=== PATIENT | female | born 1960 | race Caucasian/White ===

== ENCOUNTER 2018-12-17 08:45 | Inpatient (IN) ==
--- OUTSIDE RECORDS SUMMARY | 2018-12-17 08:48 | External Medical Summary | Continuity of Care Document ---
:1960 Author Name Alan Springer, Provider Address Unavailable Unavailable , Care Team Providers Name Role Phone Colin Tate DO Unavailable [email or web address] Unavailable Unavailable Unavailable Unavailable Unavailable Problems Glaucoma (365.9) (H40.9) Loss of teeth, acquired (525.10) (K08.109) Allergic rhinitis (477.9) (J30.9) Asthma (493.90) (J45.909) Anemia (285.9) (D64.9) Headache (784.0) (R51) Panic disorder (300.01) (F41.0) PAD (peripheral artery disease) (443.9) (I73.9) Generalized anxiety disorder (300.02) (F41.1) Tobacco use disorder (305.1) (F17.200) Venous insufficiency (459.81) (I87.2) Allergies and Adverse Reactions No Known Drug Allergies (Allergy) Medications CeleXA 40 MG Oral Tablet; TAKE 1 TABLET DAILY. Quantity: 90 Refills: 1 ALPRAZolam 1 MG Oral Tablet; USE DIRECTED Refills: 0 Loratadine 10 MG Oral Tablet; TAKE 1 TABLET DAILY. Quantity: 90 Refills: 3 Lumigan 0.01 % Ophthalmic Solution; USE DIRECTED. Refills: 0 Albuterol Sulfate HFA 108 MCG/ACT AERS; USE DIRECTED. Refills: 0 Aspirin 81 MG TABS; TAKE 1 TABLET DAILY. Quantity: 90 Refills: 3 traMADol HCl - 50 MG Oral Tablet; USE DIRECTED. Refills: 0 Procedures History of Hysterectomy Status: Complete d History of Tonsillectomy With Adenoidectomy Status: Completed History of Complete Colonoscopy Status: Completed Immunizations Immunizations not documented Social History - Smoking Status Smoker. current status unknown Plan of Treatment Planned Observations Planned Goals not documented Results No Known Results Results not documented Encounters Appointment; Colin Tate DO 25-May-2015 10:00 Encounter Diagnosis: Problem not documented
[2018-12-17] MEDS ORDERED: ALBUT/IPRATROP 3MG/0.5MG NEB 3 ML VIAL NEB STA ×2 (09:36→10:43)
[2018-12-17 09:39] LABS: Appearance Urine Clear (Clear); Bilirubin Urine Negative (Negative); Blood Urine Negative (Negative); Color Urine Yellow; Glucose Urine UA Negative (Negative); Ketones Urine Negative (Negative); Leukocyte Esterase Urine Negative (Negative); Nitrite Urine Negative (Negative); Protein Urine Negative (Negative); Specific Gravity Urine 1.011 (1.000-1.030); Urobilinogen Urine Negative (Negative)
[2018-12-17 10:04] LABS: Basophils # (auto) 0.03 K/uL (0-0.2); Basophils % (auto) 0.7 %; Eosinophils # (auto) 0.13 K/uL (0-0.5); Eosinophils % (auto) 3.1 %; Hematocrit (blood only) 33.8 % (37-47); Hemoglobin 11.1 g/dL (12.0-16.0); Immature Granulocytes # (auto) 0.01 K/uL (0.00-0.02); Immature Granulocytes % (auto) 0.2 %; Lymphocytes # (auto) 1.18 K/uL (1.2-3.4); Lymphocytes % (auto) 28.3 %; Mean Corpuscular Hgb Conc 32.8 g/dL (32-36); Mean Platelet Volume 9.6 fL (7.4-10.4); Monocytes # (auto) 0.43 K/uL (0.11-0.59); Monocytes % (auto) 10.3 %; Neutrophils # (auto) 2.39 K/uL (1.4-6.5); Neutrophils % (auto) 57.4 %; Platelet Count 180 K/uL (130-400); RDW Standard Deviation 53.5 fL (36.4-46.3); Red Blood Count 3.22 M/uL (4.2-5.4); White Blood Count 4.17 K/uL (4.8-10.8)
--- NOTE | 2018-12-17 10:06 | XRay Report ---
XR chest 1V portable CLINICAL HISTORY: 58 years-old Female presenting with dyspnea. TECHNIQUE: Portable upright AP view of the chest was obtained. COMPARISON: 05/17/2015. FINDINGS: Atherosclerosis of the aortic arch. Cardiac silhouette enlarged. No focal opacity. No large effusion or pneumothorax. Degenerative changes of the thoracic spine. Upper abdomen normal. IMPRESSION: 1. Cardiomegaly. No other convincing evidence of acute cardiopulmonary disease. Electronically signed by: Antelmo Pisano M.D. 12/17/2018 10:05 AM
[2018-12-17 10:16] LABS: INR 0.9 (0.9-1.1); Partial Thromboplastin Ratio 0.8; Partial Thromboplastin Time 22.1 Seconds (21.0-31.0); Prothrombin Time 9.7 Seconds (9.0-12.0)
[2018-12-17 10:19] LABS: Alanine Aminotransferase 25 U/L (12-78); Albumin Level 3.8 gm/dl (3.4-5.0); Aspartate Aminotransferase 12 U/L (15-37); BUN Creatinine Ratio 16.7 (10-20); Blood Urea Nitrogen 11 mg/dl (7-18); Calcium 8.9 mg/dl (8.5-10.1); Carbon Dioxide 33 mmol/L (21-32); Chloride 105 mmol/L (98-107); Creatinine Clr Calc Pharmacy 84.7 ml/min; Est GFR (African American) 111.3; Glucose 86 mg/dl (70-99); Potassium 4.5 mmol/L (3.5-5.1); Sodium 142 mmol/L (136-145)
[2018-12-17 10:36] LABS: Albumin Globulin Ratio 1.1 (0.9-2); Alkaline Phosphatase 64 U/L (45-117); Bilirubin,Total 0.3 mg/dl (0.2-1); Globulin 3.4 gm/dl (2.5-4.0); NT Pro B Type Natriuretic Pept 122 pg/ml (0-900); Total Protein 7.2 gm/dl (6.4-8.2); Troponin I < 0.015 ng/ml (0-0.045)
[2018-12-17] MEDS ORDERED: OPTIRAY 320 125ml IV PRN (11:17)
--- NOTE | 2018-12-17 11:40 | CT Scan Report ---
CT SCAN OF THE ABDOMEN AND PELVIS WITH IV CONTRAST CLINICAL HISTORY: Abdominal distention. Lower extremity edema. COMPARISON STUDY: Abdominal CT dated 08/02/2012. TECHNIQUE: Following the IV administration of 120 cc of Optiray 320, CT scan of the abdomen and pelv is is performed from the lung bases to the proximal femora. Images are reviewed in the axial, sagitta l, and coronal planes. IV contrast was administered without complication. A dose lowering technique w as utilized adhering to the principles of ALARA. FINDINGS: Lung bases: The heart is normal in size and without pericardial effusion. There is bibasilar scarring /atelectasis. No airspace consolidation or pleural effusion is identified. There is a small hiatal he rnia. Liver: The contrast-enhanced liver is enlarged, measuring 18.6 cm in length. The liver demonstrates d iffusely diminished attenuation consistent with hepatic steatosis. There is no intrahepatic biliary d uctal dilatation. The hepatic veins and portal veins are patent. Gallbladder: Unremarkable. Spleen: Normal in size and attenuation. Pancreas: Unremarkable. Adrenal glands: Unremarkable. Kidneys: The contrast enhanced kidneys are normal in size and without hydronephrosis. The kidneys enh ance symmetrically. A subcentimeter cortical hypodensity in the left kidney likely represents a cyst but is too small for definitive characterization. A circumaortic left renal vein is incidentally note d. Abdominal vasculature: The abdominal aorta is normal in course and caliber noting moderate atheroscle rotic calcification. Bowel: There is moderate colonic fecal retention. No bowel obstruction is seen. A duodenal diverticul um is noted. The appendix is not identified. Peritoneum: There is no intraperitoneal free air or abdominal ascites. Lymphadenopathy: None. Pelvic viscera: The bladder is normal in appearance. The uterus is surgically absent. No adnexal lesi on is seen. Skeletal structures: The skeletal structures are osteopenic. There is mild lumbosacral spondylosis. N o lytic or blastic lesions are seen. IMPRESSION: 1. There are no acute infectious or inflammatory findings in the abdomen or pelvis. 2. Hepatomegaly and hepatic steatosis. 3. Moderate constipation. Electronically signed by: Ankur Mercado M.D. 12/17/2018 11:39 AM
--- NOTE | 2018-12-17 11:42 | CT Scan Report ---
CT ANGIOGRAPHY OF THE CHEST, PULMONARY EMBOLUS PROTOCOL CLINICAL HISTORY: Dyspnea. COMPARISON STUDY: Chest CT August 02, 2012. Chest radiograph December 17, 2018. TECHNIQUE: Following IV administration of Optiray-320, helical axial images of the chest were obtaine d utilizing the pulmonary embolus protocol. Maximal intensity projections and sagittal and coronal r eformats were viewed on an independent 3D workstation. IV contrast was administered without complica tion. Automated exposure control was utilized for the study. A dose lowering technique was utilized adhering to the principles of ALARA. CT DOSE: 815.25 mGy.cm FINDINGS: No pulmonary emboli are identified although the segmental and subsegmental pulmonary arter ies within the lower lobes are suboptimally assessed due to respiratory motion. Mild to moderate card iomegaly is noted. There is no evidence for thoracic aortic dissection. No enlarged thoracic lymph no rhona are present. Central airways are patent. Lungs are suboptimally assessed due to respiratory motio n. There is no consolidation to suggest pneumonia. A 4 mm left upper lobe nodule on image 190 of [address] of August 02, 2012. This is benign. There is no pneumothorax or pleural effusion . IMPRESSION: 1. No pulmonary emboli identified although segmental and subsegmental pulmonary arteries within the l ower lobes suboptimally assessed due to respiratory motion. 2. No acute intrathoracic findings. 3. Mild to moderate cardiomegaly. Electronically signed by: Moy Márquez M.D. 12/17/2018 11:41 AM
--- NOTE | 2018-12-17 13:06 | History & Physical Report ---
Date of Service December 17, 2018 Assessment & Plan (1) Shortness of breath: Pt is 58 y/o F with PMH asthma, depression, anxiety, bipolar, GERD, h/o NSTEMI 2016 presented with c/o of increased shortness of breath and increased edema x 4-5 days. States has noticed increased bilateral lower extremity edema and her abdomen seems to be more distended and her face looks puffy. Patient complains of wheezing and nonproductive cough x 3 days. In ER afebrile, vitals stable. WBC: 4.17, H/H: , negative troponin, BNP: 122 CTA CHEST: No pulmonary emboli identified although segmental and subsegmental pulmonary arteries within the lower lobes suboptimally assessed due to respiratory motion. No acute intrathoracic findings. Mild to moderate cardiomegaly. CT ABD/PELVIS: There are no acute infectious or inflammatory findings in the abdomen or pelvis. Hepatomegaly and hepatic steatosis. Moderate constipation. DDX: CHF vs asthma exacerbation -Low sodium diet -Monitor I&O's -Hold home oral lasix -Lasix 40mg IV now, followed by lasix 20mg IV tomorrow, reassess volume status -Duonebs -Echo -Monitor CBC, BMP (2) Asthma: Pt reports hx asthma. Unsure if hx COPD and unsure if had PFTs in past. She has combivent inhaler which she uses 4 times a day and past couple of days required increased use. CXR: no acute infiltrate -Duonebs currently -Recommend PFTs out patient to further assess if COPD or asthma or dual diagnosis (3) History of non-ST elevation myocardial infarction (NSTEMI): Hx NSTEMI 2016. Hx cardiac cath 2016 with 30% lesion to LAD No Current CP. Initial troponin negative. EKG without acute ST elevation -Repeat troponin (4) GERD (gastroesophageal reflux disease): -Continue PPI (5) Chronic anemia: H/H: . Baseline Hgb: 11-12 No symptoms or signs of bleeding -Continue ferrous sulfate -Monitor H&H (6) Bipolar disorder: (7) Anxiety with depression: -Continue wellbutrin, celexa, xanax, lamictal, risperidone -Continue follow up with outpatient psychiatrist (8) Alcohol use: Drinks 12 beers three times a week. Denies hx alcohol withdrawal -Alcohol cessation encouraged DVT Prophylaxis -SCDs Follows with Dr Frances for routine care Pt was seen and care coordinated with Dr Montes. See addendum History of Present Illness Chief Complaint: SOB, edema Primary Care Provider: Tereso Frances DO Pt is 58 y/o F with PMH asthma, depression, anxiety, bipolar, GERD, h/o NSTEMI 2016 presented to ER with complaint of increased shortness of breath and increased edema x 4-5 days. States has noticed increased bilateral lower extremity edema and her abdomen seems to be more distended and her face looks puffy. Patient complains of wheezing and nonproductive cough x 3 days. She reports has Combivent inhaler which she typically uses 4 times a day however over the past several days has been needing to take more and reports his been taking with minimal relief. Patient states 3 days ago had anterior chest pain in the morning which was associated with wheezing and shortness of breath. She states she took her Combivent which did not help and then later laid down and felt better after. Denies any recurrent chest pain. Denies any associated dizziness, palpitations, diaphoresis. Patient reports being on Lasix 20 mg daily for history of extremity edema and is unsure how long she has been on. States has been taking regularly. Denies any known history of CHF. Patient reports chronically sleeps with 3 pillows. States sometimes she wakes up at night feeling short of breath and having wheezing. Patient states 2 weeks ago she tripped on steps and fell forward landing on her face. Reports was seen at a urgent care center and had a reported negative nasal x-ray. Patient states since fall has had intermittent headache to top of head. Reports last BM 2 days ago which she reports was normal. Denies any abdominal pain. Denies any dysuria, hematuria, urinary frequency, urinary retention, fever/chills, diaphoresis, N/V/D, dizziness, syncope, vision changes, neck pain, palpitations, hemoptysis, sore throat, choking, otalgia, rhinorrhea, paresthesias, weakness, extremity weakness, rashes. History echo 05/07/2015: EF 45-50%, inferior, lateral wall motion abnormality with hypokinesis, trace mitral regurgitation, trace tricuspid regurgitation History echo: 05/17/2015: EF: 65-70%, normal LV wall motion History cath 04/2015: LAD: Ostial 30% occlusion, other vessels clear Allergies Allergy/AdvReac Type Severity Reaction Status Date / Time No Known Allergies Allergy Unverified 05/07/15 09:16 Home Medications Home Medications Medication Instructions Recorded Confirmed Type alprazolam 1 mg PO BID 12/17/18 12/17/18 History aspirin 81 mg PO QAM 12/17/18 12/17/18 History bisacodyl [Dulcolax (bisacodyl)] 10 mg PO HS 12/17/18 12/17/18 History bupropion HCl 100 mg PO BID 12/17/18 12/17/18 History citalopram 40 mg PO QAM 12/17/18 12/17/18 History cyanocobalamin (vitamin B-12) 1,000 mcg PO QAM 12/17/18 12/17/18 History [Vitamin B-12] ferrous sulfate [Slow Fe] 142 mg PO QAM 12/17/18 12/17/18 History furosemide 20 mg PO QAM 12/17/18 12/17/18 History ibuprofen 200 mg PO Q6H PRN 12/17/18 12/17/18 History ipratropium-albuterol [Combivent 1 puff INHALATION Q6H 12/17/18 12/17/18 History Respimat] lamotrigine 50 mg PO BID 12/17/18 12/17/18 History lamotrigine 100 mg PO HS 12/17/18 12/17/18 History multivitamin 1 tab PO QAM 12/17/18 12/17/18 History omeprazole 20 mg PO QAM 12/17/18 12/17/18 History risperidone 0.25 mg PO BID 12/17/18 12/17/18 History Past Med/Surg History Medical History Chronic anemia (Chronic) History of non-ST elevation myocardial infarction (NSTEMI) (Chronic) 2016 GERD (gastroesophageal reflux disease) (Chronic) Bipolar disorder (Chronic) Anxiety with depression (Chronic) Sepsis (Resolved) Anxiety (Chronic) Asthma (Chronic) Tobacco use (Resolved) Quit 2016 Surgical History History of cardiac cath (Chronic) 2016: 30% occlusion LAD Status post hysterectomy (Chronic) Status post tonsillectomy (Chronic) Social History Preferred Language: Indonesian Communication Ability: Effective [employer]ation Architect Required: No Beliefs That Will Affect Care: None Current Living Situation: Alone Other Information That Helps Us Care for You: No Feels Safe at Home: Yes Safety Concerns: Feels Safe At This Time Smoking Status: Former smoker Tobacco Type: cigarettes ; Do You Dip or Chew Tobacco: No ; Smoking End Date: 2015; smoked 2ppd x 30 years ; Second Hand Exposure: No ; Tobacco Cessation Education Requested by Patient: No Hx Alcohol Use: Yes Alcohol Intake Frequency Comment: 12 beers three times a week Hx Substance Use: No Review of Systems Review of Systems: All systems reviewed & are unremarkable except as noted in HPI & below Physical Exam Physical Exam: General: no distress, WDWN Head: normocephalic, atraumatic Eyes: PERRL, EOM's intact, conjunctiva non-injected, anicteric ENT: normal inspection external ears, nose, mucous membranes moist Neck: supple, trachea midline Lungs: no respiratory distress, +faint expiratory wheezing, +faint rales at RLL CV: RRR, no murmur, no JVD, 1+pretibial edema Abd: normal BS, soft, non-tender Ext: no cyanosis, no calf tenderness Neuro: A&O x 3, no focal deficits noted, normal affect Skin: warm, dry Results & Data Vital Signs (Past 12 Hours) Vital Signs Temp Pulse Pulse Resp BP BP Pulse Ox 12/17/18 11:31 64 63 17 148/74 H 100 12/17/18 11:00 62 17 137/71 96 12/17/18 10:51 65 67 19 137/79 96 12/17/18 09:52 64 18 98 12/17/18 09:25 64 18 125/62 97 12/17/18 08:52 36.4 C L 76 22 137/78 96 Laboratory Results Short CBC 12/17/18 Range/Units 09:36 WBC 4.17 L (4.8-10.8) K/uL Hgb 11.1 L (12.0-16.0) g/dL Hct 33.8 L (37-47) % Plt Count 180 (130-400) K/uL BMP 12/17/18 09:36 Sodium 142 Potassium 4.5 Chloride 105 Carbon Dioxide 33 H BUN 11 Creatinine 0.66 Glucose 86 Calcium 8.9 Cardiac Enzymes 12/17/18 Range/Units 09:36 Troponin I < 0.015 (0-0.045) ng/ml Liver Function 12/17/18 Range/Units 09:36 Total Bilirubin 0.3 (0.2-1) mg/dl AST 12 L (15-37) U/L ALT 25 (12-78) U/L Alkaline Phosphatase 64 (45-117) U/L Albumin 3.8 (3.4-5.0) gm/dl Urine 12/17/18 Range/Units 09:30 Urine Color Yellow Urine Appearance Clear (Clear) Urine pH 7.0 (4.5-7.5) Ur Specific [place] 1.011 (1.000-1.030) Urine Protein Negative (Negative) Urine Glucose (UA) Negative (Negative) Diagnostic Findings CXR: IMPRESSION: 1. Cardiomegaly. No other convincing evidence of acute cardiopulmonary disease. CTA CHEST: IMPRESSION: 1. No pulmonary emboli identified although segmental and subsegmental pulmonary arteries within the lower lobes suboptimally assessed due to respiratory motion. 2. No acute intrathoracic findings. 3 Mild to moderate cardiomegaly. CT ABD/PELVIS: IMPRESSION: 1. There are no acute infectious or inflammatory findings in the abdomen or pelvis. 2. Hepatomegaly and hepatic steatosis. 3. Moderate constipation. ECG Rate (beats per minute): 66 Rhythm: sinus rhythm Findings: + 1st degree AV block Supervising Physician Co-Signing Physician Notes Patient seen and examined with Carole ASKEW. 58year old woman with Asthma, depression, anxiety, bipolar, NSTEMI in 2016, significant smoking history (quit 2 years ago) who presented with Shortness of breath and increased leg swelling for the past 5 days, associated with wheezing, dry cough, PND, facial puffiness, abdominal distention and occasional chest pain during episodes of wheezing. Reported chronic 3 pillow orthopnea that has not changed. Also reports headache since after a recent mechanical fall with evaluation at an urgent care center. Last bowel movement was 2 days ago. Denied any fevers, sick contacts. Other history as above Physical exam was significant for bilateral pretibial edema (1+), mild expiratory wheeze (Upper Right lung zone posteriorly) and fine right basilar crackles. Other exam findings as noted above. BNP 122, trop <0.015, Hb 11.1 with MCV 105. CTA/P showed hepatomegaly with hepatic steatosis and moderate constipation. CT chest showed cardiomegaly but no PE Patient's history and exam is suggestive of congestive heart failure. She stated she does not have any previous diagnosis of heart failure but has been on furosemide since after the NSTEMI two years ago. Review of previous Echo 04/2015 showed EF of 45-50% and Echo in 05/2015 showed EF improved to 65-70. Cardiac cath in 2016 also showed 30% ostial lesion in LAD. BNP is normal but patient is obese. Will get 2D Echo. Hold po furosemide. Start iv. Monitor intake and output. Counselled patient on need for fluid and salt restriction which she has not been doing. Educated on heart healthy diet. Counselled patient about her alcohol abuse as she drinks 3 times a week (about 12 beers each time) For asthma; Continue duonebs for now and monitor For constipation: Add senna to bowel regimen Agree with other plans as above
[2018-12-17] MEDS ORDERED: FUROSEMIDE 40 MG/4 ML VIAL IV STA (14:51)
--- NOTE | 2018-12-17 15:20 | Emergency Department Note ---
History of Present Illness General Chief complaint: Shortness of Breath/Dyspnea Stated complaint: SOB,SWELLING IN ANKLES,EYES AND ABD Time Seen by Provider: 12/17/18 08:55 History of Present Illness This is a 58-year-old female that presents to the emergency department via private vehicle accompanied by daughter with complaints of "shortness of breath, swelling in ankles, eyes and abdomen". Patient notes that 5 days ago she began with shortness of breath that was worse with lying flat. She also notes some fullness and swelling in the face, legs and abdomen. She also notes that she fell about a week ago but has been doing well. She notes some chest pain with heavy breathing but none at rest. She also feels some palpitations. She has a history of pneumonia but she notes she does not feel as bad as when she previously had pneumonia. She also had a sore throat, a cough and notes that her inhaler is not helping. She also notes some pain in her legs and her abdomen. She feels as of the abdomen is swelling she notes that she is on Lasix 20 mg daily. She has a history of OR in 2015 as well. She was a former smoker but none currently. She notes that after her OR she stopped smoking. She notes a past medical history significant for that of sister with CHF. Home Medications Home Medications Medication Instructions Recorded Confirmed Type alprazolam 1 mg PO BID 12/17/18 12/17/18 History aspirin 81 mg PO QAM 12/17/18 12/17/18 History bisacodyl [Dulcolax (bisacodyl)] 10 mg PO HS 12/17/18 12/17/18 History bupropion HCl 100 mg PO BID 12/17/18 12/17/18 History citalopram 40 mg PO QAM 12/17/18 12/17/18 History cyanocobalamin (vitamin B-12) 1,000 mcg PO QAM 12/17/18 12/17/18 History [Vitamin B-12] ferrous sulfate [Slow Fe] 142 mg PO QAM 12/17/18 12/17/18 History furosemide 20 mg PO QAM 12/17/18 12/17/18 History ibuprofen 200 mg PO Q6H PRN 12/17/18 12/17/18 History ipratropium-albuterol [Combivent 1 puff INHALATION Q6H 12/17/18 12/17/18 History Respimat] lamotrigine 50 mg PO BID 12/17/18 12/17/18 History lamotrigine 100 mg PO HS 12/17/18 12/17/18 History multivitamin 1 tab PO QAM 12/17/18 12/17/18 History omeprazole 20 mg PO QAM 12/17/18 12/17/18 History risperidone 0.25 mg PO BID 12/17/18 12/17/18 History Allergies Allergy/AdvReac Type Severity Reaction Status Date / Time No Known Allergies Allergy Unverified 05/07/15 09:16 Past Med/Surg History Medical History Chronic anemia (Chronic) History of non-ST elevation myocardial infarction (NSTEMI) (Chronic) 2016 GERD (gastroesophageal reflux disease) (Chronic) Bipolar disorder (Chronic) Anxiety with depression (Chronic) Sepsis (Resolved) Anxiety (Chronic) Asthma (Chronic) Tobacco use (Resolved) Quit 2016 Surgical History History of cardiac cath (Chronic) 2016: 30% occlusion LAD Status post hysterectomy (Chronic) Status post tonsillectomy (Chronic) Social History Preferred Language: Korean Communication Ability: Effective Predatory Animal Exterminator Required: No Beliefs That Will Affect Care: None Current Living Situation: Alone Other Information That Helps Us Care for You: No Feels Safe at Home: Yes Safety Concerns: Feels Safe At This Time Smoking Status: Former smoker Tobacco Type: cigarettes ; Do You Dip or Chew Tobacco: No ; Smoking End Date: 2015; smoked 2ppd x 30 years ; Second Hand Exposure: No ; Tobacco Cessation Education Requested by Patient: No Hx Alcohol Use: Yes Alcohol Intake Frequency Comment: 12 beers three times a week Hx Substance Use: No Review of Systems A total of 10 systems reviewed and were otherwise negative Physical Exam Vital Signs Vital Signs - 24 hr 12/17/18 08:52 12/17/18 09:25 12/17/18 09:52 Temperature 36.4 C L Temperature Source Oral Sepsis Recent Fever Within 48 Hours No Sepsis Action Taken by Nursing No Action Required Pulse Rate 76 Pulse Rate [Finger] 64 64 Pulse Rate from SpO2 Sensor Respiratory Rate 22 18 18 Respiratory Effort / Characteristics Non-Labored Spontaneous Non-Labored Non-Labored Spontaneous Respiratory Depth Normal Normal Blood Pressure 137/78 Blood Pressure [Left Arm] 125/62 Blood Pressure Mean 97 Blood Pressure Mean [Left Arm] 83 Blood Pressure Position Sitting Pulse Oximetry 96 97 98 Oxygen Delivery Method Room Air Room Air Room Air 12/17/18 10:51 12/17/18 11:00 12/17/18 11:31 Temperature Temperature Source Sepsis Recent Fever Within 48 Hours Sepsis Action Taken by Nursing Pulse Rate 65 62 64 Pulse Rate [Finger] 67 63 Pulse Rate from SpO2 Sensor 64 61 63 Respiratory Rate 19 17 17 Respiratory Effort / Characteristics Non-Labored Spontaneous Respiratory Depth Blood Pressure 137/71 148/74 H Blood Pressure [Left Arm] 137/79 Blood Pressure Mean 93 98 Blood Pressure Mean [Left Arm] 98 Blood Pressure Position Pulse Oximetry 96 96 100 Oxygen Delivery Method Room Air 12/17/18 12:00 12/17/18 12:30 12/17/18 13:00 Temperature Temperature Source Sepsis Recent Fever Within 48 Hours Sepsis Action Taken by Nursing Pulse Rate 67 70 69 Pulse Rate [Finger] Pulse Rate from SpO2 Sensor 68 71 69 Respiratory Rate 21 18 21 Respiratory Effort / Characteristics Respiratory Depth Blood Pressure 148/70 H Blood Pressure [Left Arm] Blood Pressure Mean 96 Blood Pressure Mean [Left Arm] Blood Pressure Position Pulse Oximetry 97 97 Oxygen Delivery Method VITAL SIGNS - Vital signs and nursing notes were reviewed. Stable and afebrile. GENERAL - 58-year-old female appearing her stated age who is in no acute distress but has an intermittent cough. Communicates well with provider and answers questions appropriately. SKIN - Without rashes. HEAD - NC/AT. EYES - PERRL with EOMI bilaterally. Sclera anicteric. EARS - No deformities of external structures noted on gross examination bilaterally. NOSE - Midline and without cyanosis. No epistaxis or purulent drainage noted. MOUTH/OROPHARYNX - Without perioral cyanosis. Buccal mucosa pink and moist and without leukoplakia. Tongue midline with equal elevation of palate bilaterally. No tonsillar hypertrophy, erythema, or exudates noted. Good dentition noted. NECK - Neck with FROM. Supple to palpation. No lymphadenopathy noted. No nuchal rigidity. LUNGS - Chest wall symmetric without accessory muscle use, intercostals retractions, or central cyanosis. Normal vesicular breath sounds CTA B/L. No wheezes, rales, or rhonchi appreciated. CARDIAC - RRR with S1/S2. No murmur, rubs, or gallops appreciated. ABDOMEN - Abdominal contour normal without pulsations or visible masses. Abd is tense but not rigid. No evidence of surgical abdomen. No tenderness, palpable masses, hepatosplenomegaly, or ascites noted. EXTREMITIES - No clubbing or peripheral cyanosis. 1+ lower extreme pitting edema noted. There is evidence of fluid overload with lower extremity edema. This is symmetric. No palpable cord. NEUROLOGIC - Cranial nerves II through XII grossly intact. Sensory intact to light touch throughout. PSYCH - A&O, and cooperates fully with examiner. Pt is very pleasant and interacts well with examiner. Course Administered Medications Bupropion HCl (Wellbutrin-Sr) 100 mg PO [id number] JUAN M Stop: 01/16/19 16:59 Last Admin: 12/17/18 16:05 Dose: 100 mg Documented by: [id number] Discontinued Medications Albuterol (Duoneb) 3 ml NEB NOW STA Stop: 12/17/18 09:37 Last Admin: 12/17/18 09:50 Dose: 3 ml Documented by: [id number] Albuterol (Duoneb) 3 ml NEB NOW STA Stop: 12/17/18 10:44 Last Admin: 12/17/18 11:29 Dose: 3 ml Documented by: [id number] Furosemide (Lasix) 40 mg IV NOW STA Stop: 12/17/18 14:52 Last Admin: 12/17/18 16:04 Dose: 40 mg Documented by: [id number] Ioversol (Optiray 320 125ml) 120 ml IV ONCE PRN PRN Reason: Interaction Checking Stop: 12/21/18 11:16 Last Admin: 12/17/18 11:21 Dose: 120 ml Documented by: [id number] Medical Decision Making Laboratory Data Result diagrams: 12/17/18 09:36 12/17/18 09:36 Lab Results 12/17/18 12/17/18 12/17/18 Range/Units 09:30 09:36 09:36 WBC 4.17 L (4.8-10.8) K/uL RBC 3.22 L (4.2-5.4) M/uL Hgb 11.1 L (12.0-16.0) g/dL Hct 33.8 L (37-47) % MCV 105.0 H (80-100) fL MCH 34.5 H (25-34) pg MCHC 32.8 (32-36) g/dL RDW Std Deviation 53.5 H (36.4-46.3) fL RDW Coeff of Adrián 14.0 (11.5-14.5) % Plt Count 180 (130-400) K/uL MPV 9.6 (7.4-10.4) fL Immature Gran % (Auto) 0.2 % Neut % (Auto) 57.4 % Lymph % (Auto) 28.3 % [place] % (Auto) 10.3 % Eos % (Auto) 3.1 % Baso % (Auto) 0.7 % Immature Gran # (Auto) 0.01 (0.00-0.02) K/uL Neut # (Auto) 2.39 (1.4-6.5) K/uL Lymph # (Auto) 1.18 L (1.2-3.4) K/uL [place] # (Auto) 0.43 (0.11-0.59) K/uL Eos # (Auto) 0.13 (0-0.5) K/uL Baso # (Auto) 0.03 (0-0.2) K/uL PT 9.7 (9.0-12.0) Seconds INR 0.9 (0.9-1.1) APTT 22.1 (21.0-31.0) Seconds PTT Ratio 0.8 Sodium (136-145) mmol/L Potassium (3.5-5.1) mmol/L Chloride (98-107) mmol/L Carbon Dioxide (21-32) mmol/L Anion Gap (3-11) BUN (7-18) mg/dl Creatinine (0.6-1.2) mg/dl Est Cr Clr Drug Dosing ml/min Est GFR ( Amer) Est GFR (Non-Af Amer) BUN/Creatinine Ratio (10-20) Glucose (70-99) mg/dl Calcium (8.5-10.1) mg/dl Magnesium (1.8-2.4) mg/dl Total Bilirubin (0.2-1) mg/dl AST (15-37) U/L ALT (12-78) U/L Alkaline Phosphatase (45-117) U/L Troponin I (0-0.045) ng/ml NT-Pro-B Natriuret Pep (0-900) pg/ml Total Protein (6.4-8.2) gm/dl Albumin (3.4-5.0) gm/dl Globulin (2.5-4.0) gm/dl Albumin/Globulin Ratio (0.9-2) Lipase (73-393) U/L TSH (0.300-4.500) uIu/ml Urine Color Yellow Urine Appearance Clear (Clear) Urine pH 7.0 (4.5-7.5) Ur Specific Effie 1.011 (1.000-1.030) Urine Protein Negative (Negative) Urine Glucose (UA) Negative (Negative) Urine Ketones Negative (Negative) Urine Blood Negative (Negative) Urine Nitrite Negative (Negative) Urine Bilirubin Negative (Negative) Urine Urobilinogen Negative (Negative) Ur Leukocyte Esterase Negative (Negative) 12/17/18 Range/Units 09:36 WBC (4.8-10.8) K/uL RBC (4.2-5.4) M/uL Hgb (12.0-16.0) g/dL Hct (37-47) % MCV (80-100) fL MCH (25-34) pg MCHC (32-36) g/dL RDW Std Deviation (36.4-46.3) fL RDW Coeff of Adrián (11.5-14.5) % Plt Count (130-400) K/uL MPV (7.4-10.4) fL Immature Gran % (Auto) % Neut % (Auto) % Lymph % (Auto) % [place] % (Auto) % Eos % (Auto) % Baso % (Auto) % Immature Gran # (Auto) (0.00-0.02) K/uL Neut # (Auto) (1.4-6.5) K/uL Lymph # (Auto) (1.2-3.4) K/uL [place] # (Auto) (0.11-0.59) K/uL Eos # (Auto) (0-0.5) K/uL Baso # (Auto) (0-0.2) K/uL PT (9.0-12.0) Seconds INR (0.9-1.1) APTT (21.0-31.0) Seconds PTT Ratio Sodium 142 (136-145) mmol/L Potassium 4.5 (3.5-5.1) mmol/L Chloride 105 (98-107) mmol/L Carbon Dioxide 33 H (21-32) mmol/L Anion Gap 4.0 (3-11) BUN 11 (7-18) mg/dl Creatinine 0.66 (0.6-1.2) mg/dl Est Cr Clr Drug Dosing 84.7 ml/min Est GFR ( Amer) 111.3 Est GFR (Non-Af Amer) 96.0 BUN/Creatinine Ratio 16.7 (10-20) Glucose 86 (70-99) mg/dl Calcium 8.9 (8.5-10.1) mg/dl Magnesium 2.0 (1.8-2.4) mg/dl Total Bilirubin 0.3 (0.2-1) mg/dl AST 12 L (15-37) U/L ALT 25 (12-78) U/L Alkaline Phosphatase 64 (45-117) U/L Troponin I < 0.015 (0-0.045) ng/ml NT-Pro-B Natriuret Pep 122 (0-900) pg/ml Total Protein 7.2 (6.4-8.2) gm/dl Albumin 3.8 (3.4-5.0) gm/dl Globulin 3.4 (2.5-4.0) gm/dl Albumin/Globulin Ratio 1.1 (0.9-2) Lipase 122 (73-393) U/L TSH 1.370 (0.300-4.500) uIu/ml Urine Color Urine Appearance (Clear) Urine pH (4.5-7.5) Ur Specific [place] (1.000-1.030) Urine Protein (Negative) Urine Glucose (UA) (Negative) Urine Ketones (Negative) Urine Blood (Negative) Urine Nitrite (Negative) Urine Bilirubin (Negative) Urine Urobilinogen (Negative) Ur Leukocyte Esterase (Negative) Imaging Data Radiologist's Impression: CT ANGIOGRAPHY OF THE CHEST, PULMONARY EMBOLUS PROTOCOL CLINICAL HISTORY: Dyspnea. COMPARISON STUDY: Chest CT August 02, 2012. Chest radiograph December 17, 2018. TECHNIQUE: Following IV administration of Optiray-320, helical axial images of the chest were obtained utilizing the pulmonary embolus protocol. Maximal intensity projections and sagittal and coronal reformats were viewed on an [facility] 3D workstation. IV contrast was administered without complication. Automated exposure control was utilized for the study. A dose lowering technique was utilized adhering to the principles of ALARA. CT DOSE: 815.25 mGy.cm FINDINGS: No pulmonary emboli are identified although the segmental and subsegmental pulmonary arteries within the lower lobes are suboptimally assessed due to respiratory motion. Mild to moderate cardiomegaly is noted. There is no evidence for thoracic aortic dissection. No enlarged thoracic lymph nodes are present. Central airways are patent. Lungs are suboptimally assessed due to respiratory motion. There is no consolidation to suggest pneumonia. A 4 mm left upper lobe nodule on image 190 of [address] of August 02, 2012. This is benign. There is no pneumothorax or pleural effusion. IMPRESSION: 1. No pulmonary emboli identified although segmental and subsegmental pulmonary arteries within the lower lobes suboptimally assessed due to respiratory motion. 2. No acute intrathoracic findings. 3. Mild to moderate cardiomegaly. Electronically signed by: Moy Márquez M.D. 12/17/2018 11:[address] SCAN OF THE ABDOMEN AND PELVIS WITH IV CONTRAST CLINICAL HISTORY: Abdominal distention. Lower extremity edema. COMPARISON STUDY: Abdominal CT dated 08/02/2012. TECHNIQUE: Following the IV administration of 120 cc of Optiray 320, CT scan of the abdomen and pelvis is performed from the lung bases to the proximal femora. Images are reviewed in the axial, sagittal, and coronal planes. IV contrast was administered without complication. A dose lowering technique was utilized adhering to the principles of ALARA. FINDINGS: Lung bases: The heart is normal in size and without pericardial effusion. There is bibasilar scarring/atelectasis. No airspace consolidation or pleural effusion is identified. There is a small hiatal hernia. Liver: The contrast-enhanced liver is enlarged, measuring 18.6 cm in length. The liver demonstrates diffusely diminished attenuation consistent with hepatic steatosis. There is no intrahepatic biliary ductal dilatation. The hepatic veins and portal veins are patent. Gallbladder: Unremarkable. Spleen: Normal in size and attenuation. Pancreas: Unremarkable. Adrenal glands: Unremarkable. Kidneys: The contrast enhanced kidneys are normal in size and without hydronephrosis. The kidneys enhance symmetrically. A subcentimeter cortical hypodensity in the left kidney likely represents a cyst but is too small for definitive characterization. A circumaortic left renal vein is incidentally noted. Abdominal vasculature: The abdominal aorta is normal in course and caliber noting moderate atherosclerotic calcification. Bowel: There is moderate colonic fecal retention. No bowel obstruction is seen. A duodenal diverticulum is noted. The appendix is not identified. Peritoneum: There is no intraperitoneal free air or abdominal ascites. Lymphadenopathy: None. Pelvic viscera: The bladder is normal in appearance. The uterus is surgically absent. No adnexal lesion is seen. Skeletal structures: The skeletal structures are osteopenic. There is mild lumbosacral spondylosis. No lytic or blastic lesions are seen. IMPRESSION: 1. There are no acute infectious or inflammatory findings in the abdomen or pelvis. 2. Hepatomegaly and hepatic steatosis. 3. Moderate constipation. Electronically signed by: Ankur Mercado M.D. 12/17/2018 11:39 AM XR chest 1V portable CLINICAL HISTORY: 58 years-old Female presenting with dyspnea. TECHNIQUE: Portable upright AP view of the chest was obtained. COMPARISON: 05/17/2015. FINDINGS: Atherosclerosis of the aortic arch. Cardiac silhouette enlarged. No focal opacity. No large effusion or pneumothorax. Degenerative changes of the thoracic spine. Upper abdomen normal. IMPRESSION: 1. Cardiomegaly. No other convincing evidence of acute cardiopulmonary disease. Electronically signed by: Antelmo Pisano M.D. 12/17/2018 10:05 AM MDM Narrative Patient was seen and evaluated as above in room a 4. Review was performed of nursing notes and vital signs. After obtaining a thorough history and physical examination the above work up was performed. She presents today with what appears to be a fluid overloaded status with also a cough. She has increase of symptoms with lying flat consistent with fluid overload likely from CHF or similar ailment but also has a cough but does sound slight asthmatic in nature. She was given 2 DuoNeb's with some improvement. She felt little jittery after these. IV access was established. CBC reveals vides cytopenia with hemoglobin, red blood cell count white blood cell count being slightly decreased. Hemoglobin 11.1. Patient's metabolic panel does reveal carbon dioxide at 33 but otherwise troponin negative. BNP within normal limits. Lipase and TSH normal. Patient's urinalysis is negative. CT a of the chest was obtained secondary to her dyspnea and this was negative for PE. I also did obtain a CT scan of the abdomen and pelvis and this also was essentially negative. There is some minimal hepatomegaly and hepatic steatosis. I do believe the patient would benefit from an inpatient stay to further differentiate this and better work-up the fluid overload status. I discussed this with the hospitalist. Please refer to further documentation regarding her stay. Case was discussed with the attending physician. Hypertensive, I believe secondary to presentation. She will be admitted for further evaluation and management of her presentation. Medication list reviewed. GCS: 15 In the evaluation and treatment of this patient, the following differential diagnoses were considered: OR, ASC, Dysrhythmia, Angina, Mediastinitis, GERD, Esophagitis, CHF, PE, Pneumonia, Bronchitis, Costochondritis, Rib Fracture, Zoster. Impression & Plan Shortness of breath, Cough, Bilateral edema of lower extremity Discharge Plan Visit Data *Final* Discharge Date/Time: 12/17/18 14:45 Chief Complaint: Shortness of Breath/Dyspnea Stated Complaint: SOB,SWELLING IN ANKLES,EYES AND ABD ED Provider: Igor Smith ED Midlevel Provider: Brice Recinos Discharge Problem: Shortness of breath, Cough, Bilateral edema of lower extremity Patient Disposition: Admitted As Inpatient Condition: Good Discharge Instructions Interventions: ED Discharge Assessment Last Done: 12/17/18 14:45
[2018-12-17] MEDS: BuPROPion SR 100 MG TABCR PO SCH (16:05)
[2018-12-17] MEDS: ACETAMINOPHEN 325 MG TAB PO PRN (18:20)
[2018-12-17] MEDS: lamoTRIgine 100 MG TAB PO SCH (20:37)
[2018-12-17] MEDS: risperiDONE 0.5 MG TABLET PO SCH (20:37)
[2018-12-17] MEDS: BISACODYL 5 MG TABEC PO SCH (20:40)
[2018-12-17] MEDS: ALPRAZolam 0.5 MG TABLET PO SCH (20:40)
[2018-12-18] MEDS: ACETAMINOPHEN 325 MG TAB PO PRN ×3 (03:03→23:31)
[2018-12-18] MEDS: lamoTRIgine 100 MG TAB PO SCH ×3 (05:52→20:23)
[2018-12-18 05:59] LABS: Hematocrit (blood only) 33.6 % (37-47); Hemoglobin 10.8 g/dL (12.0-16.0); Mean Corpuscular Hgb Conc 32.1 g/dL (32-36); Mean Corpuscular Volume 104.3 fL (80-100); Mean Platelet Volume 9.2 fL (7.4-10.4); Platelet Count 164 K/uL (130-400); Red Blood Count 3.22 M/uL (4.2-5.4); White Blood Count 4.35 K/uL (4.8-10.8)
[2018-12-18 06:20] LABS: Estimated Average Glucose 108 mg/dl; Hemoglobin A1C 5.4 % (4.5-5.6)
[2018-12-18 06:40] LABS: Calcium 9.1 mg/dl (8.5-10.1); Creatinine Clr Calc Pharmacy 69.8 ml/min; Est GFR (African American) 92.9; Est GFR (Non-African American) 80.1; Potassium 3.9 mmol/L (3.5-5.1)
[2018-12-18] MEDS: MULTIVITAMIN TAB PO SCH (09:03)
[2018-12-18] MEDS: SENNA 8.6 MG TAB PO SCH (09:03)
[2018-12-18] MEDS: BuPROPion SR 100 MG TABCR PO SCH ×2 (09:03→15:56)
[2018-12-18] MEDS: FUROSEMIDE 20 MG in SYRINGE 0 ML IV SCH (09:03)
[2018-12-18] MEDS: risperiDONE 0.5 MG TABLET PO SCH ×2 (09:04→20:23)
[2018-12-18] MEDS: PANTOprazole 40 MG TAB PO SCH (09:04)
[2018-12-18] MEDS: CYANOCOBALAMIN 500 MCG TABLET (VITAMIN B-12) PO SCH (09:04)
[2018-12-18] MEDS: FERROUS SULFATE 325 MG TAB PO SCH (09:04)
[2018-12-18] MEDS: CITALOPRAM 40 MG TAB PO SCH (09:04)
[2018-12-18] MEDS: ASPIRIN 81 MG ECTAB PO SCH (09:04)
[2018-12-18] MEDS: ALPRAZolam 0.5 MG TABLET PO SCH ×2 (09:07→20:24)
[2018-12-18] MEDS ORDERED: guaiFENesin 200 MG TAB PO PRN (10:23)
[2018-12-18] MEDS ORDERED: ALBUT/IPRATROP 3MG/0.5MG NEB 3 ML VIAL NEB PRN (10:27)
[2018-12-18] MEDS ORDERED: POLYETHYLENE (MIRALAX) 17 GM PACK PO STA (10:32)
[2018-12-18] MEDS: predniSONE 20 MG TAB PO SCH (12:01)
--- NOTE | 2018-12-18 19:04 | Hospitalist Progress Note ---
Date of Service December 18, 2018 Assessment & Plan (1) Shortness of breath: Worsening SOB mostly related to asthma CT chest showed no pulmonary emboli identified although segmental and subsegmental pulmonary arteries within the lower lobes suboptimally assessed due to respiratory motion. CXR showed no other convincing evidence of acute cardiopulmonary disease. Received IV lasix in the ER and this morning Will hold on IV lasix for tomorrow Continue duoneb treatment ECHO showed no wall motion abnormality with EF btw 60 to 65%. Grade 2 diastolic dysfunction Clinically improves (2) Asthma: CXR showed no acute infiltrate CTA chest showed no PE Continue duoneb supplement Recommend PFTs out patient to further assess if COPD or asthma or dual diagnosis Prednisone 40mg po adding (3) History of non-ST elevation myocardial infarction (NSTEMI): Hx NSTEMI 2015. Hx cardiac cath 2015 with 30% lesion to LAD No Current CP. Initial troponin negative. EKG without acute ST elevation Troponin x2 negative (4) GERD (gastroesophageal reflux disease): Continue PPI (5) Chronic anemia: No symptoms or signs of bleeding Continue ferrous sulfate Hgb 10.8 monitor CBC (6) Bipolar disorder: (7) Anxiety with depression: Continue wellbutrin, celexa, xanax, lamictal, risperidone Continue follow up with outpatient psychiatrist (8) Alcohol use: Drinks 12 beers three times a week. Denies hx alcohol withdrawal Will monitor for signs of withdrawn Alcohol cessation encouraged DVT Prophylaxis SCDs Disposition Possible discharge tomorrow Subjective Pt was seen and examined Lying in bed with no distress with daughter at bedside Pt said that her breathing feels much better She said that she continues to have a dry cough Denies any chest pain, palpitation, dizziness and fever Physical Exam Physical Exam: General- No acute distress Head- atraumatic Eyes- PERRL, EOMI, ENT- oropharynx clear Neck- supple, no JVD Lungs- +wheezing Heart- regular rhythm; no murmur Abdomen- normal bowel sounds, soft, nontender Extremities- no calf tenderness Neuro- alert, oriented x 3; PERRL, EOMI; no facial palsy; no dysarthria Skin- warm & dry Results & Data Vital Signs (Past 12 Hours) Vital Signs Temp Pulse Pulse Resp BP Pulse Ox 12/18/18 18:48 36.9 C 70 18 136/67 97 12/18/18 16:00 61 12/18/18 15:37 37 C 70 18 148/57 H 93 12/18/18 12:05 64 19 94 12/18/18 11:24 36.9 C 63 17 119/61 95 12/18/18 08:00 57 L 12/18/18 07:15 36.8 C 66 18 133/64 95
[2018-12-18] MEDS: BISACODYL 5 MG TABEC PO SCH (20:22)
[2018-12-19 06:09] LABS: Hematocrit (blood only) 34.5 % (37-47); Hemoglobin 11.4 g/dL (12.0-16.0); Mean Corpuscular Volume 104.2 fL (80-100); Mean Platelet Volume 9.1 fL (7.4-10.4); Platelet Count 196 K/uL (130-400); RDW Coefficient of Variation 13.7 % (11.5-14.5); RDW Standard Deviation 52.2 fL (36.4-46.3); Red Blood Count 3.31 M/uL (4.2-5.4); White Blood Count 6.98 K/uL (4.8-10.8)
[2018-12-19 06:42] LABS: Calcium 9.6 mg/dl (8.5-10.1); Est GFR (African American) 109.7; Est GFR (Non-African American) 94.6; Potassium 3.7 mmol/L (3.5-5.1)
[2018-12-19] MEDS: lamoTRIgine 100 MG TAB PO SCH ×2 (08:57→12:56)
[2018-12-19] MEDS: ASPIRIN 81 MG ECTAB PO SCH (09:16)
[2018-12-19] MEDS: CITALOPRAM 40 MG TAB PO SCH (09:16)
[2018-12-19] MEDS: FERROUS SULFATE 325 MG TAB PO SCH (09:17)
[2018-12-19] MEDS: FUROSEMIDE 20 MG in SYRINGE 0 ML IV SCH (09:18)
[2018-12-19] MEDS: MULTIVITAMIN TAB PO SCH (09:19)
[2018-12-19] MEDS: predniSONE 20 MG TAB PO SCH (09:19)
[2018-12-19] MEDS: PANTOprazole 40 MG TAB PO SCH (09:20)
[2018-12-19] MEDS: risperiDONE 0.5 MG TABLET PO SCH (09:20)
[2018-12-19] MEDS: BuPROPion SR 100 MG TABCR PO SCH (09:23)
[2018-12-19] MEDS: SENNA 8.6 MG TAB PO SCH (09:23)
[2018-12-19] MEDS: CYANOCOBALAMIN 500 MCG TABLET (VITAMIN B-12) PO SCH (09:23)
[2018-12-19] MEDS: ALPRAZolam 0.5 MG TABLET PO SCH (09:45)
--- NOTE | 2018-12-19 12:08 | Hospitalist Progress Note ---
Date of Service December 19, 2018 Assessment & Plan (1) Shortness of breath: Worsening SOB mostly related to asthma CT chest showed no pulmonary emboli identified although segmental and subsegmental pulmonary arteries within the lower lobes suboptimally assessed due to respiratory motion. CXR showed no other convincing evidence of acute cardiopulmonary disease. Received IV lasix in the ER and this morning Received IV lasix this morning, transition to oral lasix Continue duoneb treatment ECHO showed no wall motion abnormality with EF btw 60 to 65%. Grade 2 diastolic dysfunction Will discharge on lasix 20mg daily and adittional 20mg twice a week Clinically improves significantly Check BMP in 1 week (2) Asthma: CXR showed no acute infiltrate CTA chest showed no PE Continue duoneb supplement Recommend PFTs out patient to further assess if COPD or asthma or dual diagnosis Prednisone 40mg po adding (3) History of non-ST elevation myocardial infarction (NSTEMI): Hx NSTEMI 2015. Hx cardiac cath 2015 with 30% lesion to LAD No Current CP. Initial troponin negative. EKG without acute ST elevation Troponin x2 negative stable (4) GERD (gastroesophageal reflux disease): Continue PPI (5) Chronic anemia: No symptoms or signs of bleeding Continue ferrous sulfate Hgb 11.4 Stable (6) Bipolar disorder: (7) Anxiety with depression: Continue wellbutrin, celexa, xanax, lamictal, risperidone Continue follow up with outpatient psychiatrist (8) Alcohol use: Drinks 12 beers three times a week. Denies hx alcohol withdrawal Will monitor for signs of withdrawn Alcohol cessation encouraged DVT Prophylaxis SCDs Disposition Possible discharge today Follow up with your primary care provider with Dr. Frances on 12/24 @ 11:05 AM Subjective Pt was seen and examined Lying in bed with no distress Pt said that she feels much better today She said that she has been walking in the hallway Denies any chest pain, palpitation, dizziness and SOB Physical Exam Physical Exam: General- No acute distress Head- atraumatic Eyes- PERRL, EOMI, ENT- oropharynx clear Neck- supple, no JVD Lungs- No wheezing Heart- regular rhythm; no murmur Abdomen- normal bowel sounds, soft, nontender Extremities- no calf tenderness Neuro- alert, oriented x 3; PERRL, EOMI; no facial palsy; no dysarthria Skin- warm & dry Results & Data Vital Signs (Past 12 Hours) Vital Signs Temp Pulse Resp BP Pulse Ox 12/19/18 08:03 36.6 C 77 18 128/59 L 97 12/19/18 04:00 36.8 C 65 18 140/65 95
--- NOTE | 2018-12-21 07:34 | Discharge Summary ---
Date of Service December 19, 2018 Admission HPI Per Admitting Provider Pt is 58 y/o F with PMH asthma, depression, anxiety, bipolar, GERD, h/o NSTEMI 2016 presented to ER with complaint of increased shortness of breath and increased edema x 4-5 days. has noticed increased bilateral lower extremity edema and her abdomen seems to be more distended and her face looks puffy. Patient complains of wheezing and nonproductive cough x 3 days. She reports has Combivent inhaler which she typically uses 4 times a day however over the past several days has been needing to take more and reports his been taking with minimal relief. Patient states 3 days ago had anterior chest pain in the morning which was associated with wheezing and shortness of breath. She states she took her Combivent which did not help and then later laid down and felt better after. Denies any recurrent chest pain. Denies any associated dizziness, palpitations, diaphoresis. Patient reports being on Lasix 20 mg daily for history of extremity edema and is unsure how long she has been on. States has been taking regularly. Denies any known history of CHF. Patient reports chronically sleeps with 3 pillows. States sometimes she wakes up at night feeling short of breath and having wheezing. Patient states 2 weeks ago she tripped on steps and fell forward landing on her face. Reports was seen at a urgent care center and had a reported negative nasal x-ray. Patient states since fall has had intermittent headache to top of head. Reports last BM 2 days ago which she reports was normal. Denies any abdominal pain. Denies any dysuria, hematuria, urinary frequency, urinary retention, fever/chills, diaphoresis, N/V/D, dizziness, syncope, vision changes, neck pain, palpitations, hemoptysis, sore throat, choking, otalgia, rhinorrhea, paresthesias, weakness, extremity weakness, rashes. History echo 05/07/2015: EF 45-50%, inferior, lateral wall motion abnormality with hypokinesis, trace mitral regurgitation, trace tricuspid regurgitation History echo: 05/17/2015: EF: 65-70%, normal LV wall motion History cath 04/2015: LAD: Ostial 30% occlusion, other vessels clear Admission Exam Per Admitting Provider General: no distress, WDWN Head: normocephalic, atraumatic Eyes: PERRL, EOM's intact, conjunctiva non-injected, anicteric ENT: normal inspection external ears, nose, mucous membranes moist Neck: supple, trachea midline Lungs: no respiratory distress, +faint expiratory wheezing, +faint rales at RLL CV: RRR, no murmur, no JVD, 1+pretibial edema Abd: normal BS, soft, non-tender Ext: no cyanosis, no calf tenderness Neuro: A&O x 3, no focal deficits noted, normal affect Skin: warm, dry Principal Diagnosis Shortness of breath Asthma exacerbation History of non-ST elevation myocardial infarction (NSTEMI) Chronic anemia Bipolar disorder Anxiety/depression Alcohol use Discharge Exam General- No acute distress Head- atraumatic Eyes- PERRL, EOMI, ENT- oropharynx clear Neck- supple, no JVD Lungs- No wheezing Heart- regular rhythm; no murmur Abdomen- normal bowel sounds, soft, nontender Extremities- no calf tenderness Neuro- alert, oriented x 3; PERRL, EOMI; no facial palsy; no dysarthria Skin- warm & dry Discharge Data Allergies Allergy/AdvReac Type Severity Reaction Status Date / Time No Known Allergies Allergy Unverified 05/07/15 09:16 Consultations 12/17/18 11:55 ED Decision to Admit Stat Ordered Studies 12/17/18 10:42 CT abd pelvis IV con only Stat CT angio chest PE protocol Stat CT ANGIOGRAPHY OF THE CHEST, PULMONARY EMBOLUS PROTOCOL CLINICAL HISTORY: Dyspnea. COMPARISON STUDY: Chest CT August 02, 2012. Chest radiograph December 17, 2018. TECHNIQUE: Following IV administration of Optiray-320, helical axial images of the chest were obtained utilizing the pulmonary embolus protocol. Maximal intensity projections and sagittal and coronal reformats were viewed on an [employer] 3D workstation. IV contrast was administered without complication. Automated exposure control was utilized for the study. A dose lowering technique was utilized adhering to the principles of ALARA. CT DOSE: 815.25 mGy.cm FINDINGS: No pulmonary emboli are identified although the segmental and subsegmental pulmonary arteries within the lower lobes are suboptimally assessed due to respiratory motion. Mild to moderate cardiomegaly is noted. There is no evidence for thoracic aortic dissection. No enlarged thoracic lymph nodes are present. Central airways are patent. Lungs are suboptimally assessed due to respiratory motion. There is no consolidation to suggest pneumonia. A 4 mm left upper lobe nodule on image 190 of [address] of August 02, 2012. This is benign. There is no pneumothorax or pleural effusion. IMPRESSION: 1. No pulmonary emboli identified although segmental and subsegmental pulmonary arteries within the lower lobes suboptimally assessed due to respiratory motion. 2. No acute intrathoracic findings. 3. Mild to moderate cardiomegaly. Electronically signed by: Moy Márquez M.D. 12/17/2018 11:41 AM Dictated: 12/17/18 1131 Transcribed: 12/17/[address] SCAN OF THE ABDOMEN AND PELVIS WITH IV CONTRAST CLINICAL HISTORY: Abdominal distention. Lower extremity edema. COMPARISON STUDY: Abdominal CT dated 08/02/2012. TECHNIQUE: Following the IV administration of 120 cc of Optiray 320, CT scan of the abdomen and pelvis is performed from the lung bases to the proximal femora. Images are reviewed in the axial, sagittal, and coronal planes. IV contrast was administered without complication. A dose lowering technique was utilized adhering to the principles of ALARA. FINDINGS: Lung bases: The heart is normal in size and without pericardial effusion. There is bibasilar scarring/atelectasis. No airspace consolidation or pleural effusion is identified. There is a small hiatal hernia. Liver: The contrast-enhanced liver is enlarged, measuring 18.6 cm in length. The liver demonstrates diffusely diminished attenuation consistent with hepatic steatosis. There is no intrahepatic biliary ductal dilatation. The hepatic veins and portal veins are patent. Gallbladder: Unremarkable. Spleen: Normal in size and attenuation. Pancreas: Unremarkable. Adrenal glands: Unremarkable. Kidneys: The contrast enhanced kidneys are normal in size and without hydronephrosis. The kidneys enhance symmetrically. A subcentimeter cortical hypodensity in the left kidney likely represents a cyst but is too small for definitive characterization. A circumaortic left renal vein is incidentally noted. Abdominal vasculature: The abdominal aorta is normal in course and caliber noting moderate atherosclerotic calcification. Bowel: There is moderate colonic fecal retention. No bowel obstruction is seen. A duodenal diverticulum is noted. The appendix is not identified. Peritoneum: There is no intraperitoneal free air or abdominal ascites. Lymphadenopathy: None. Pelvic viscera: The bladder is normal in appearance. The uterus is surgically absent. No adnexal lesion is seen. Skeletal structures: The skeletal structures are osteopenic. There is mild lumbosacral spondylosis. No lytic or blastic lesions are seen. IMPRESSION: 1. There are no acute infectious or inflammatory findings in the abdomen or pelvis. 2. Hepatomegaly and hepatic steatosis. 3. Moderate constipation. Electronically signed by: Ankur Mercado M.D. 12/17/2018 11:39 AM Dictated: 12/17/18 1132 Transcribed: 12/17/18 1132 XR chest 1V portable CLINICAL HISTORY: 58 years-old Female presenting with dyspnea. TECHNIQUE: Portable upright AP view of the chest was obtained. COMPARISON: 05/17/2015. FINDINGS: Atherosclerosis of the aortic arch. Cardiac silhouette enlarged. No focal opacity. No large effusion or pneumothorax. Degenerative changes of the thoracic spine. Upper abdomen normal. IMPRESSION: 1. Cardiomegaly. No other convincing evidence of acute cardiopulmonary disease. Electronically signed by: Antelmo Pisano M.D. 12/17/2018 10:05 AM Dictated: 12/17/18 1004 Transcribed: 12/17/18 1004 Hospital Course (1) Shortness of breath: Worsening SOB mostly related to asthma CT chest showed no pulmonary emboli identified although segmental and subsegmental pulmonary arteries within the lower lobes suboptimally assessed due to respiratory motion. CXR showed no other convincing evidence of acute cardiopulmonary disease. Received IV lasix in the ER and this morning Received IV lasix this morning, transition to oral lasix Continue duoneb treatment ECHO showed no wall motion abnormality with EF btw 60 to 65%. Grade 2 diastolic dysfunction Will discharge on lasix 20mg daily and adittional 20mg twice a week Clinically improves significantly Check BMP in 1 week (2) Asthma: CXR showed no acute infiltrate CTA chest showed no PE Continue duoneb supplement Recommend PFTs out patient to further assess if COPD or asthma or dual diagnosis Prednisone 40mg po adding (3) History of non-ST elevation myocardial infarction (NSTEMI): Hx NSTEMI 2016. Hx cardiac cath 2016 with 30% lesion to LAD No Current CP. Initial troponin negative. EKG without acute ST elevation Troponin x2 negative stable (4) GERD (gastroesophageal reflux disease): Continue PPI (5) Chronic anemia: No symptoms or signs of bleeding Continue ferrous sulfate Hgb 11.4 Stable (6) Bipolar disorder: (7) Anxiety with depression: Continue wellbutrin, celexa, xanax, lamictal, risperidone Continue follow up with outpatient psychiatrist (8) Alcohol use: Drinks 12 beers three times a week. Denies hx alcohol withdrawal Will monitor for signs of withdrawn Alcohol cessation encouraged DVT Prophylaxis SCDs Disposition Possible discharge today Follow up with your primary care provider with Dr. Frances on 12/24 @ 11:05 AM Total Time Total Time Spent Total Time Spent (In Minutes): 35 minutes Total Time Includes: Examination of the Patient, Discharge Planning, Medication Reconciliation, Communication With Other Providers and Other Discharge Plan Discharge Items Patient Disposition: Home - Self-Care Reason For Visit: SOB LEG SWELLING Discharge Diagnosis: Shortness of breath Asthma exacerbation Chronic anemia Bipolar disorder Anxiety/depression Alcohol use Condition on Discharge: Good Activity: Resume your previous activity Activity Comment: As tolerated Non-emergency contact: Primary Care Provider Call non-emergency contact if: your temperature is above 101 Follow-up/Referrals: Tereso Frances DO [Primary Care Provider] - Diet: Heart Healthy Addtl Attending Provider Instructions: Follow up with your primary care provider with Dr. Frances on 12/24 @ 11:05 AM Follow a low salt diet Check weight daily (Take an additional tab of lasix if weight increases by more that 2 lbs in 24 hr) Check BMP in 1 week Counseling on alcohol cessation Continue lasix 20mg daily except (Sunday and to take 40mg daily) CHF Discharge Instructions Call your Primary Care doctor if any of the following symptoms or problems start or get worse: Shortness of breath or difficulty breathing Wake up at night short of breath Chest pain Cough Swelling of your hands, feet, or legs More fatigued or tired with your normal activity Palpitations - sudden fast heart beats WEIGHT Weigh yourself every morning after using the bathroom. Use the same scale. Wear the same amount of clothing. Write your weight down on a chart. Call your Primary Care doctor if you gain more than 2-3 pounds in 1-2 days. MEDICATIONS Use this discharge instruction sheet for medication instructions. Take your medications at the time your doctor ordered. Do not skip a dose of your medicines. If you miss a dose of medicine, take it as soon as possible, but DO NOT DOUBLE A DOSE. Read your medicine information when you get home. Know all of the side effects of your medicine. If in doubt, ask your pharmacist Call your Primary Care doctor's office if you have any side effects. Be sure all of your doctors know what medicine and herbs you take (including cold, flu, and herbal medicine). Take the following with you to your follow-up doctor appointments: Weight Chart Medication List List of questions Do not drink excessive alcohol, beer or wine. Pending Studies at Discharge: No Stand-Alone Forms: [facility] Medications and DC Order Prescriptions: New guaifenesin 200 mg Tablet 200 mg PO Q8H PRN (Reason: cough) Qty: 20 RF: 0 prednisone 20 mg Tablet 20 mg PO DAILY 5 Days Qty: 5 RF: 0 Continued multivitamin Tablet 1 tab PO QAM RF: 0 citalopram 40 mg tablet 40 mg PO QAM RF: 0 alprazolam 1 mg tablet 1 mg PO BID RF: 0 cyanocobalamin (vitamin B-12) [Vitamin B-12] 1,000 mcg Tablet 1,000 mcg PO QAM RF: 0 risperidone 0.25 mg tablet 0.25 mg PO BID RF: 0 aspirin 81 mg Tablet,Delayed Release (Dr/Ec) 81 mg PO QAM RF: 0 bupropion HCl 100 mg tablet sustained-release 12 hr 100 mg PO BID RF: 0 ibuprofen 200 mg Tablet 200 mg PO Q6H PRN (Reason: Pain) RF: 0 omeprazole 20 mg capsule,delayed release(DR/EC) 20 mg PO QAM RF: 0 bisacodyl [Dulcolax (bisacodyl)] 5 mg Tablet,Delayed Release (Dr/Ec) 10 mg PO HS RF: 0 lamotrigine 100 mg tablet 50 mg PO BID RF: 0 Slow Fe 142 mg (45 mg iron) Tablet Extended Release 142 mg PO QAM RF: 0 Combivent Respimat 20-100 mcg/actuation Mist 1 puff INHALATION Q6H RF: 0 lamotrigine 100 mg tablet 100 mg PO HS RF: 0 furosemide 20 mg tablet 20 mg PO QAM 30 Days Qty: 30 RF: 0 Discharge Orders: Discharge Order (Routine); Ordered 12/19/18 Ordered By: Syed Sullivan Admission Data Admit Date/Time: 12/17/18 13:19 Attending Provider: Syed Sullivan Admit Provider: Natalya Montes I. Primary Care Provider: Tereso Frances Other Providers: Natalya Montes I. ; Dariusz Almodovar Other Interventions: Discharge Summary Assessment (RN) Last Done: 12/19/18 13:28 DC Date/Time DO NOT enter until pt leaves facility: 12/19/18 14:41
== END 2018-12-19 14:41 | disposition home or self-care (01) | DRG 203 ==
LOC: ED 08:45 → 2E 13:19 → SUATTDRO 13:19 → 2E 14:45

== ENCOUNTER 2023-08-21 20:21 | Inpatient (IN) ==
[2023-08-21 21:19] LABS: Appearance Urine Cloudy (Clear); Bacteria Urine Automated None Seen (None Seen); Bilirubin Urine Negative (Negative); Blood Urine Negative (Negative); Cast Urine Automated >20 /lpf (0-2); Color Urine Yellow; Glucose Urine UA Negative (Negative); Ketones Urine Negative (Negative); Leukocyte Esterase Urine Negative (Negative); Nitrite Urine Negative (Negative); Protein Urine 1+ (Negative); RBC Urine Automated 0-2 /hpf (0-2); Specific Gravity Urine 1.021 (1.000-1.030); Urobilinogen Urine Negative (Negative); WBC Urine Automated 0-5 /hpf (0-5)
[2023-08-21 21:39] LABS: Albumin Globulin Ratio 1.3 (0.9-2); Albumin Level 4.4 gm/dl (3.4-5.0); BUN Creatinine Ratio 15.1 (10-20); Bilirubin,Total 0.4 mg/dl (0.2-1.0); Creatinine Clr Calc Pharmacy 45.5 ml/min; Est GFR (African American) 63.8 ml/min; Est GFR (Non-African American) 55.1 ml/min; Globulin 3.3 gm/dl (2.5-4.0); Total Protein 7.7 gm/dl (6.0-8.3)
[2023-08-21] MEDS: KETOROLAC TROMETHAMINE 15 MG/ML VIAL IV STA (22:05)
[2023-08-21] MEDS: OPTIRAY 320 100ml IV ONE (23:01)
[2023-08-21] MEDS: ACETAMINOPHEN 1,000 MG/100 ML VIAL IV STA (23:25)
[2023-08-21] MEDS: SODIUM CHLORIDE 0.9% 500 ML IV ONE (23:25)
[2023-08-21] MEDS: DICYCLOMINE HCL 10 MG/ML 2 ML AMP/VIAL IM ONE (23:27)
[2023-08-22] LABS: Basophils # (auto) 0.06 K/uL (0.00-0.20); Basophils % (auto) 0.9 %; Eosinophils # (auto) 0.05 K/uL (0.00-0.50); Eosinophils % (auto) 0.8 %; Hematocrit (blood only) 35.1 % (37.0-47.0); Hemoglobin 11.8 g/dl (12.0-16.0); Immature Granulocytes # (auto) 0.03 K/uL (0.01-0.20); Immature Granulocytes % (auto) 0.5 %; Lymphocytes # (auto) 1.15 K/uL (1.20-3.40); Lymphocytes % (auto) 17.8 %; Mean Corpuscular Hemoglobin 33.7 pg (25.0-34.0); Mean Corpuscular Hgb Conc 33.6 g/dL (32.0-36.0); Mean Corpuscular Volume 100.3 fL (80.0-100.0); Mean Platelet Volume 10.7 fL (9.4-12.4); Monocytes # (auto) 0.43 K/uL (0.11-0.59); Monocytes % (auto) 6.6 %; Neutrophils # (auto) 4.75 K/uL (1.40-6.50); Neutrophils % (auto) 73.4 %; Platelet Count 219 K/uL (130-400); RDW Coefficient of Variation 13.8 % (11.5-14.5); White Blood Count 6.47 K/ul (4.8-10.8)
--- NOTE | 2023-08-22 00:03 | Emergency Department Note ---
History of Present Illness General Chief complaint: Vomiting Stated complaint: VOMITING, ABD PAIN Time Seen by Provider: 08/21/23 22:04 History of Present Illness Maximum Pain Intensity: 10 This 63-year-old female presents the ER complaining of abdominal pain. Pain is worse in left lower quadrant. She had hysterectomy. Patient denies chest pain, dyspnea, fevers, flank pain, urinary symptoms or any other medical complaints. Home Medications Medication Instructions Recorded Confirmed Type latanoprost 0.005 % eye drops 1 drp ophthalmic (eye) .COMPLEX 11/24/22 08/21/23 Rx #7.5 mL cholecalciferol (vitamin D3) 25 100 mcg PO QAM 01/17/23 08/21/23 History mcg (1,000 unit) tablet citalopram 40 mg tablet 40 mg PO QAM #90 tabs 05/15/23 08/21/23 Rx furosemide 20 mg tablet 20 mg PO .COMPLEX #90 tabs 06/20/23 08/21/23 Rx alprazolam 0.5 mg tablet 0.5 mg PO BID #45 tabs 08/10/23 08/21/23 Rx albuterol sulfate 90 mcg/actuation 1 inh inhalation QID shortness of 08/21/23 08/21/23 History aerosol inhaler breath or wheezing aspirin 81 mg chewable tablet 81 mg PO QAM 08/21/23 08/21/23 History (Aspirin Childrens) cyanocobalamin (vitamin B-12) 1,000 mcg PO QAM 08/21/23 08/21/23 History 1,000 mcg tablet (Vitamin B-12) ipratropium 20 mcg-albuterol 100 2 puff inhalation BID 08/21/23 08/21/23 History mcg/actuation mist for inhalation (Combivent Respimat) metoprolol succinate 25 mg 25 mg PO QAM 08/21/23 08/21/23 History tablet,extended release 24 hr apixaban 5 mg tablet (Eliquis) 5 mg PO BID 30 days #60 tabs 08/23/23 Rx apixaban 5 mg tablet (Eliquis) 10 mg (2 x 5 mg) PO BID #11 tabs 08/23/23 Rx atorvastatin 40 mg tablet 40 mg PO QAM 30 days #30 tabs 08/23/23 Rx ondansetron 4 mg disintegrating 4 mg PO Q8H PRN nausea and 08/23/23 Rx tablet vomiting 4 days #14 tabs Allergies Allergy/AdvReac Type Severity Reaction Status Date / Time umeclidinium AdvReac Intermediate Vomiting Verified 08/21/23 22:10 [From Anoro Ellipta] vilanterol AdvReac Intermediate Vomiting Verified 08/21/23 22:10 [From Anoro Ellipta] Past Med/Surg History Problem List (Updated 08/22/23 @ 15:11 by Tereso Alexandra MD) Left renal mass Infarction of kidney (Acute) Obesity Skin tag of labia CAD (coronary artery disease) Bilateral cataracts Removal scheduled 01/19/21 Glaucoma (Chronic) COPD (chronic obstructive pulmonary disease) (Chronic) Alcohol use Chronic anemia (Chronic) History of non-ST elevation myocardial infarction (NSTEMI) (Chronic) 2016>NO CARDS NOW GERD (gastroesophageal reflux disease) (Chronic) Bipolar disorder (Chronic) Anxiety with depression (Chronic) Asthma (Chronic) Surgical History History of section X 1 History of hysterectomy History of colonoscopy History of tooth extraction History of tonsillectomy History of cataract surgery RT/LEFT History of cardiac cath 2016: 30% occlusion LAD>NO STENTS AT [facility] Family History Brother Prostate cancer Father Myocardial infarction Other No family history of adverse response to anesthesia Denies family history of Family hx of colon cancer Ovarian cancer Breast cancer Colorectal cancer Social History Smoking Status: Former smoker Age Quit Using Tobacco: 52; Second Hand Exposure: No; Do You Dip or Chew Tobacco: No; Hx Alcohol Use: Yes Alcohol type: beer Hx Substance Use: No Preferred Language: Georgian Communication Ability: Effective Visual Impairment: No Limitations Hearing Ability: Normal Data Modeler Required: No Beliefs That Will Affect Care: None marital status: / Current Living Situation: Alone current occupational status: disabled How many Children do You have: 1 Feels Safe at Home: Yes Childhood Exposure to Second-Hand Smoke: No Diet: regular Diet Comment: regular caffeine: Yes during the past year weight has: remained stable Dental Care, Regularly: No Physical Activity Frequency: Daily Seatbelt Use: always Sunscreen Use: Yes Assistive Devices: None Review of Systems A total of 10 systems reviewed and were otherwise negative Physical Exam Vital Signs Vital Signs - 24 hr 08/21/23 20:40 08/21/23 22:00 08/21/23 22:01 Temperature 36.9 C Temperature Source Temporal Artery Scan Pulse Rate 50 L 59 L Pulse Rate [Finger] 57 L Pulse Rhythm Regular Pulse Rhythm [Finger] Regular Pulse Strength [Finger] Normal Respiratory Rate 16 16 16 Respiratory Effort / Characteristics Non-Labored Respiratory Depth Normal Normal Respiratory Pattern Regular Blood Pressure 154/67 H Blood Pressure [Right Arm] 134/68 Blood Pressure Mean 96 Blood Pressure Mean [Right Arm] 90 Pulse Oximetry 95 94 94 Oxygen Delivery Method Room Air Room Air Room Air Sepsis Recent Fever Within 48 Hours No Sepsis New/Unexplained Change in Mental Status No Sepsis Action Taken by Nursing No Action Required VITALS: Vitals are noted on the nurse's note and reviewed by myself. Vital signs stable. GENERAL: Pleasant female, in no acute distress, nondiaphoretic, well-developed well-nourished. SKIN: Capillary reflex less than 2 seconds. HEENT: Normocephalic. PERRLA. EOMI. Nares patent. Mucous membranes moist. Neck is supple without nuchal rigidity. HEART: Regular rate and rhythm LUNGS: Clear to auscultation bilaterally without wheezes, rales or rhonchi. No retractions or accessory muscle use. ABDOMEN: Positive bowel sounds x 4. Normal tympanic percussion. Soft, tender left lower quadrant, without masses or organomegaly. Herrera sign negative. No guarding or rebound tenderness. no CVA tenderness MUSCULOSKELETAL: No gross musculoskeletal defects. NEURO: Patient was alert and oriented to person place and time. No focal neurological deficits. Course Administered Medications Albuterol (Albuterol Hfa 8 Gm Inhaler (Combivent Respimat P&T Subs)) 2 puffs INH BIDR [facility]; Protocol Stop: 09/21/23 06:59 Last Admin: 08/23/23 07:03 Dose: 2 puffs Documented By: Admin: 08/22/23 19:50 Dose: 2 puffs Documented By: Admin: 08/22/23 07:40 Dose: 2 puffs Documented By: LUAN Albuterol (Albut/Ipratrop 3mg/0.5mg Neb 3 Ml Vial) 3 ml NEB Q6H PRN; Protocol PRN Reason: Wheezing Stop: 09/22/23 03:33 Last Admin: 08/23/23 03:48 Dose: 3 ml Documented By: JAMIE Alprazolam (Alprazolam 0.5 Mg Tablet) 0.5 mg PO BID [facility] Stop: 09/21/23 08:59 Last Admin: 08/23/23 07:53 Dose: 0.5 mg Documented By: Admin: 08/22/23 20:08 Dose: 0.5 mg Documented By: Admin: 08/22/23 08:22 Dose: 0.5 mg Documented By: DESIRE Apixaban (Apixaban 5 Mg Tablet) 10 mg PO BID [facility] Stop: 08/28/23 21:01 Last Admin: 08/23/23 07:46 Dose: 10 mg Documented By: Admin: 08/22/23 20:05 Dose: 10 mg Documented By: Admin: 08/22/23 08:23 Dose: 10 mg Documented By: DESIRE Aspirin (Aspirin 81 Mg Chew) 81 mg PO [facility] Stop: 09/21/23 08:59 Last Admin: 08/23/23 07:53 Dose: 81 mg Documented By: Admin: 08/22/23 08:22 Dose: 81 mg Documented By: DESIRE Atorvastatin Calcium (Atorvastatin 40 Mg Tab) 40 mg PO [facility] Stop: 09/21/23 08:59 Last Admin: 08/23/23 07:46 Dose: 40 mg Documented By: Admin: 08/22/23 08:24 Dose: 40 mg Documented By: DESIRE Citalopram Hydrobromide (Citalopram 40 Mg Tab) 40 mg PO [facility] Stop: 09/21/23 08:59 Last Admin: 08/23/23 07:46 Dose: 40 mg Documented By: Admin: 08/22/23 08:26 Dose: 40 mg Documented By: DESIRE Cyanocobalamin (Cyanocobalamin (B-12) 500 Mcg Tablet) [facility] [place] [facility] Stop: 09/21/23 08:59 Last Admin: 08/23/23 07:46 Dose: 1,000 mcg Documented By: Admin: 08/22/23 08:26 Dose: 1,000 mcg Documented By: DESIRE Ipratropium [place] (Ipratropium Hfa Inhaler (Combivent Respimat P&T Subs)) 2 puffs INH BIDR [facility]; Protocol Stop: 09/21/23 06:59 Last Admin: 08/23/23 07:03 Dose: 2 puffs Documented By: Admin: 08/22/23 19:51 Dose: 2 puffs Documented By: Admin: 08/22/23 07:40 Dose: 2 puffs Documented By: LUAN Latanoprost (Latanoprost 0.005% Op Soln 2.5 Ml Btl) 1 drops OPB HS [facility] Stop: 09/21/23 20:59 Last Admin: 08/22/23 20:05 Dose: 1 drops Documented By: VISHAL Metoprolol Succinate (Metoprolol Succ 25mg Ext Rel Tab) 25 mg PO [facility] Stop: 09/21/23 08:59 Last Admin: 08/23/23 07:46 Dose: 25 mg Documented By: Admin: 08/22/23 08:32 Dose: Not Given Documented By: DESIRE Ondansetron HCl (Ondansetron Inj 2 Mg/Ml 2 Ml Vial) 4 mg IV Q6H PRN PRN Reason: Nausea Stop: 09/21/23 02:46 Last Admin: 08/23/23 11:41 Dose: 4 mg Documented By: KEVIN Oxycodone HCl (Oxycodone Hcl Ir 5 Mg Tab (Immediate Release)) 5 mg PO Q4H PRN PRN Reason: Pain Stop: 09/06/23 14:05 Last Admin: 08/23/23 14:41 Dose: 5 mg Documented By: KEVIN Vitamin D (Cholecalciferol 25 Mcg (1000 Units) Tab) 100 mcg PO [facility] Stop: 09/21/23 08:59 Last Admin: 08/23/23 07:46 Dose: 100 mcg Documented By: Admin: 08/22/23 08:25 Dose: 100 mcg Documented By: DESIRE Discontinued Medications Dicyclomine HCl (Dicyclomine Hcl 10 Mg/Ml 2 Ml Amp/Vial) 20 mg IM NOW ONE Stop: 08/21/23 22:27 Last Admin: 08/21/23 23:27 Dose: 20 mg Documented By: KG Sodium Chloride (Nss) 500 mls @ 999 mls/hr IV .Q31M ONE Stop: 08/21/23 22:56 Last Infusion: 08/22/23 01:22 Dose: Infused Documented By: Admin: 08/21/23 23:25 Dose: 999 mls/hr Documented By: KG Acetaminophen (Ofirmev) 1,000 mg in 100 mls @ 400 mls/hr IV NOW STA Stop: 08/21/23 22:40 Last Infusion: 08/22/23 00:10 Dose: Infused Documented By: Admin: 08/21/23 23:25 Dose: 400 mls/hr Documented By: KG Acetaminophen (Ofirmev) 1,000 mg in 100 mls @ 400 mls/hr IV Q8H PRN PRN Reason: Pain or Fever Stop: 08/25/23 06:59 Last Infusion: 08/23/23 03:52 Dose: Infused Documented By: Admin: 08/23/23 03:37 Dose: 400 mls/hr Documented By: Infusion: 08/22/23 19:10 Dose: Infused Documented By: Admin: 08/22/23 18:51 Dose: 400 mls/hr Documented By: KEVIN Sodium Chloride (Nss) 1,000 mls @ 80 mls/hr IV .[id number] [facility] Stop: 08/23/23 02:59 Last Infusion: 08/23/23 04:25 Dose: Infused Documented By: Admin: 08/22/23 15:47 Dose: 80 mls/hr Documented By: Infusion: 08/22/23 15:47 Dose: Infused Documented By: Admin: 08/22/23 04:13 Dose: 80 mls/hr Documented By: DHARMESH Ioversol (Optiray 320 100ml) 100 ml IV ONCE ONE Stop: 08/21/23 23:02 Last Admin: 08/21/23 23:01 Dose: 91 ml Documented By: ANDREW Ketorolac Tromethamine (Ketorolac Tromethamine 15 Mg/Ml Vial) 10 mg IV NOW STA Stop: 08/21/23 20:43 Last Admin: 08/21/23 22:05 Dose: 10 mg Documented By: DHARMESH Morphine Sulfate (Morphine Sulfate 4 Mg/Ml 1 Ml Carp\Vial) 4 mg IV Q3H PRN PRN Reason: Severe Pain (Scale 7, 8, 9,10) Stop: 09/05/23 01:51 Last Admin: 08/23/23 11:01 Dose: 4 mg Documented By: Admin: 08/23/23 06:17 Dose: 4 mg Documented By: Admin: 08/23/23 02:01 Dose: 4 mg Documented By: Admin: 08/22/23 20:08 Dose: 4 mg Documented By: Admin: 08/22/23 15:47 Dose: 4 mg Documented By: Admin: 08/22/23 09:08 Dose: 4 mg Documented By: Admin: 08/22/23 04:14 Dose: 4 mg Documented By: KG Critical Care Time Critical Care Time: Yes Total Critical Care Time: 35 I have personally spent 35 minutes of critical care time in the direct management of this patient. This includes bedside care, interpretation of diagnostic studies, and testing, discussion with consultants, patient, and family members, and other required patient management activities. This 35 minutes is in excess of all separately billable procedures. Medical Decision Making Medical Records Attestation: I reviewed the patient's medical records. Home Medications Current Medication List: was personally reviewed by me Laboratory Data Attestation: I reviewed the patient's lab results. 08/21/23 23:31 08/23/23 07:08 Lab Results 08/21/23 08/21/23 08/21/23 Range/Units 20:52 20:55 23:31 WBC Cancelled 6.47 RBC Cancelled 3.50 L Hgb Cancelled 11.8 L Hct Cancelled 35.1 L MCV Cancelled 100.3 H MCH Cancelled 33.7 MCHC Cancelled 33.6 RDW Std Deviation Cancelled 51.0 H RDW Coeff of Adrián Cancelled 13.8 Plt Count Cancelled 219 MPV Cancelled 10.7 Immature Gran % (Auto) Cancelled 0.5 Neut % (Auto) Cancelled 73.4 Lymph % (Auto) Cancelled 17.8 [place] % (Auto) Cancelled 6.6 Eos % (Auto) Cancelled 0.8 Baso % (Auto) Cancelled 0.9 Neut # (Auto) Cancelled 4.75 Lymph # (Auto) Cancelled 1.15 L [place] # (Auto) Cancelled 0.43 Eos # (Auto) Cancelled 0.05 Baso # (Auto) Cancelled 0.06 Immature Gran # (Auto) Cancelled 0.03 Absolute Nucleated RBC Cancelled Nucleated RBC % (auto) Cancelled Neutrophils % (Manual) Cancelled Band Neutrophils % Cancelled Lymphocytes % (Manual) Cancelled Prolymphocyte % Cancelled Reactive Lymphs % (Man) Cancelled Monocytes % (Manual) Cancelled Eosinophils % (Manual) Cancelled Basophils % (Manual) Cancelled Metamyelocytes % (Man) Cancelled Myelocytes % (Man) Cancelled Promyelocytes % (Man) Cancelled Blast Cells % (Manual) Cancelled Plasma Cell % (Manual) Cancelled Other Cells % Cancelled Nucleated RBC % Cancelled Neutrophils # (Manual) Cancelled Band Neutrophils # Cancelled Total Absolute Neuts Cancelled Lymphocytes # (Manual) Cancelled Prolymphocyte # Cancelled Reactive Lymphs # Cancelled Total Abs Lymphocytes Cancelled Monocytes # (Manual) Cancelled Eosinophils # (Manual) Cancelled Basophils # (Manual) Cancelled Metamyelocytes # (Man) Cancelled Myelocytes # (Manual) Cancelled Promyelocytes # (Man) Cancelled Blast Cells # (Man) Cancelled Plasma Cell # (Manual) Cancelled Other Cells # Cancelled Nucleated RBCs # (Man) Cancelled Hypersegmented Neuts Cancelled Hyposegmented Neuts Cancelled Hypogranular Neuts Cancelled Large Granular Lymphs Cancelled # Lrg Granular Lymphs Cancelled Hairy Cells Cancelled Smudge Cells Cancelled Toxic Granulation Cancelled Toxic Vacuolation Cancelled Dohle Bodies Cancelled Nick Rods Cancelled Platelet Estimate Cancelled Hypogranular Platelets Cancelled Giant Platelets Cancelled Platelet Satelliting Cancelled RBC Morphology Cancelled Polychromasia Cancelled Hypochromasia Cancelled Poikilocytosis Cancelled Basophilic Stippling Cancelled Anisocytosis Cancelled Microcytosis Cancelled Macrocytosis Cancelled Spherocytes Cancelled Pappenheimer Bodies Cancelled Sickle Cells Cancelled Target Cells Cancelled Tear Drop Cells Cancelled Ovalocytes Cancelled Stomatocytes Cancelled Roberts-Pound Bodies Cancelled Echinocytes Cancelled Acanthocytes (Spur) Cancelled Rouleaux Cancelled RBC Agglutinates Cancelled Schistocytes Cancelled Sezary Cell Cancelled Sodium 138 (136-145) mmol/L Potassium 5.0 (3.5-5.1) mmol/L Chloride 98 (98-107) mmol/L Carbon Dioxide 34 H (21-32) mmol/L Anion Gap 6 (3-11) BUN 16 (6-23) mg/dl Creatinine 1.06 (0.6-1.2) mg/dl Est Cr Clr Drug Dosing 45.5 ml/min Est GFR ( Amer) 63.8 ml/min Est GFR (Non-Af Amer) 55.1 ml/min BUN/Creatinine Ratio 15.1 (10-20) Glucose 105 H (70-99(Fasting)) mg/dl Lactate (0.4-2.0) mmol/L Calcium 10.0 (8.6-10.3) mg/dl Phosphorus (2.5-4.9) mg/dl Magnesium (1.7-2.4) mg/dl Total Bilirubin 0.4 (0.2-1.0) mg/dl AST 22 (13-39) U/L ALT 18 (7-52) U/L Alkaline Phosphatase 73 (34-104) U/L Total Protein 7.7 (6.0-8.3) gm/dl Albumin 4.4 (3.4-5.0) gm/dl Globulin 3.3 (2.5-4.0) gm/dl Albumin/Globulin Ratio 1.3 (0.9-2) Triglycerides (0-150) mg/dl Cholesterol (0-200) mg/dl LDL Cholesterol, Calc mg/dl VLDL Cholesterol, Calc (0-30) mg/dl HDL Cholesterol mg/dl Cholesterol/HDL Ratio (0-5) Lipase 28 (11-82) U/L Homocysteine (<10.4) umol/L Urine Color Yellow Urine Appearance Cloudy A (Clear) Urine pH 5.0 (4.5-7.5) Ur Specific [place] 1.021 (1.000-1.030) Urine Protein 1+ H (Negative) Urine Glucose (UA) Negative (Negative) Urine Ketones Negative (Negative) Urine Blood Negative (Negative) Urine Nitrite Negative (Negative) Urine Bilirubin Negative (Negative) Urine Urobilinogen Negative (Negative) Ur Leukocyte Esterase Negative (Negative) Urine WBC (Auto) 0-5 (0-5) /hpf Urine RBC (Auto) 0-2 (0-2) /hpf U Hyaline Cast (Auto) >20 H (0-2) /lpf U Epithel Cells (Auto) 3-5 H (0-2) /hpf Urine Bacteria (Auto) None Seen (None Seen) Blood Parasites ID Cancelled 08/22/23 08/22/23 Range/Units 01:55 01:58 WBC RBC Hgb Hct MCV MCH MCHC RDW Std Deviation RDW Coeff of Adrián Plt Count MPV Immature Gran % (Auto) Neut % (Auto) Lymph % (Auto) [place] % (Auto) Eos % (Auto) Baso % (Auto) Neut # (Auto) Lymph # (Auto) [place] # (Auto) Eos # (Auto) Baso # (Auto) Immature Gran # (Auto) Absolute Nucleated RBC Nucleated RBC % (auto) Neutrophils % (Manual) Band Neutrophils % Lymphocytes % (Manual) Prolymphocyte % Reactive Lymphs % (Man) Monocytes % (Manual) Eosinophils % (Manual) Basophils % (Manual) Metamyelocytes % (Man) Myelocytes % (Man) Promyelocytes % (Man) Blast Cells % (Manual) Plasma Cell % (Manual) Other Cells % Nucleated RBC % Neutrophils # (Manual) Band Neutrophils # Total Absolute Neuts Lymphocytes # (Manual) Prolymphocyte # Reactive Lymphs # Total Abs Lymphocytes Monocytes # (Manual) Eosinophils # (Manual) Basophils # (Manual) Metamyelocytes # (Man) Myelocytes # (Manual) Promyelocytes # (Man) Blast Cells # (Man) Plasma Cell # (Manual) Other Cells # Nucleated RBCs # (Man) Hypersegmented Neuts Hyposegmented Neuts Hypogranular Neuts Large Granular Lymphs # Lrg Granular Lymphs Hairy Cells Smudge Cells Toxic Granulation Toxic Vacuolation Dohle Bodies Nick Rods Platelet Estimate Hypogranular Platelets Giant Platelets Platelet Satelliting RBC Morphology Polychromasia Hypochromasia Poikilocytosis Basophilic Stippling Anisocytosis Microcytosis Macrocytosis Spherocytes Pappenheimer Bodies Sickle Cells Target Cells Tear Drop Cells Ovalocytes Stomatocytes Roberts-Pound Bodies Echinocytes Acanthocytes (Spur) Rouleaux RBC Agglutinates Schistocytes Sezary Cell Sodium 138 (136-145) mmol/L Potassium 3.9 D (3.5-5.1) mmol/L Chloride 100 (98-107) mmol/L Carbon Dioxide 31 (21-32) mmol/L Anion Gap 7 (3-11) BUN 15 (6-23) mg/dl Creatinine 0.93 (0.6-1.2) mg/dl Est Cr Clr Drug Dosing 51.9 ml/min Est GFR ( Amer) 74.7 ml/min Est GFR (Non-Af Amer) 64.5 ml/min BUN/Creatinine Ratio 16.1 (10-20) Glucose 115 H (70-99(Fasting)) mg/dl Lactate 0.8 (0.4-2.0) mmol/L Calcium 8.9 (8.6-10.3) mg/dl Phosphorus 4.4 (2.5-4.9) mg/dl Magnesium 1.8 (1.7-2.4) mg/dl Total Bilirubin (0.2-1.0) mg/dl AST (13-39) U/L ALT (7-52) U/L Alkaline Phosphatase (34-104) U/L Total Protein (6.0-8.3) gm/dl Albumin 4.1 (3.4-5.0) gm/dl Globulin (2.5-4.0) gm/dl Albumin/Globulin Ratio (0.9-2) Triglycerides 78 (0-150) mg/dl Cholesterol 208 H (0-200) mg/dl LDL Cholesterol, Calc 121 mg/dl VLDL Cholesterol, Calc 16 (0-30) mg/dl HDL Cholesterol 71 mg/dl Cholesterol/HDL Ratio 2.9 (0-5) Lipase (11-82) U/L Homocysteine 11.6 H (<10.4) umol/L Urine Color Urine Appearance (Clear) Urine pH (4.5-7.5) Ur Specific [place] (1.000-1.030) Urine Protein (Negative) Urine Glucose (UA) (Negative) Urine Ketones (Negative) Urine Blood (Negative) Urine Nitrite (Negative) Urine Bilirubin (Negative) Urine Urobilinogen (Negative) Ur Leukocyte Esterase (Negative) Urine WBC (Auto) (0-5) /hpf Urine RBC (Auto) (0-2) /hpf U Hyaline Cast (Auto) (0-2) /lpf U Epithel Cells (Auto) (0-2) /hpf Urine Bacteria (Auto) (None Seen) Blood Parasites ID Imaging Data Attestation: I personally reviewed and interpreted this imaging study as follows: Radiologist's Impression: Abdomen/Pelvis CT 08/21/23 22:26 Exam(s): CT ABDOMEN + PELVIS With Contrast IV Amt: 92 ML OPTIRAY 320 EXAM: CT Abdomen and Pelvis With Intravenous Contrast CLINICAL HISTORY: Reason for exam: lower abd pain. TECHNIQUE: Axial computed tomography images of the abdomen and pelvis with intravenous contrast. CTDI is 16.19 mGy and DLP is 668.01 mGy-cm. Automated exposure control was utilized for the study. A dose lowering technique was utilized adhering to the principles of ALARA. CONTRAST: Patient received 92 ML OPTIRAY 320 of IV contrast COMPARISON: No relevant prior studies available. FINDINGS: Lung bases: Unremarkable. No mass. No consolidation. ABDOMEN: Liver: Unremarkable. No mass. Gallbladder and bile ducts: Unremarkable. No calcified stones. No ductal dilation. Pancreas: Unremarkable. No mass. No ductal dilation. Spleen: Unremarkable. No splenomegaly. Adrenals: Unremarkable. No mass. Kidneys and ureters: Wedge-shaped decreased enhancement of the LEFT upper pole and mid pole, concerning for renal infarcts. No hydronephrosis. Stomach and bowel: Diverticulosis, without acute diverticulitis. No small bowel obstruction. No free intraperitoneal air. PELVIS: Appendix: No findings to suggest acute appendicitis. Bladder: Unremarkable. No mass. Reproductive: Hysterectomy. ABDOMEN and PELVIS: Intraperitoneal space: Unremarkable. No free air. No significant fluid collection. Bones/joints: Degenerative changes of the spine. No acute fracture. No dislocation. Soft tissues: Unremarkable. Vasculature: Atherosclerotic changes of the aorta. No abdominal aortic aneurysm. Lymph nodes: Unremarkable. No enlarged lymph nodes. IMPRESSION: 1. Wedge-shaped decreased enhancement of the LEFT upper pole and mid pole, concerning for renal infarcts. 2. Hysterectomy. 3. Diverticulosis, without acute diverticulitis. No small bowel obstruction. No free intraperitoneal air. Electronically signed by: Ruben Huff MD 08/22/23 00:23 AM [facility] Narrative Prior records/ancillary studies reviewed. Triage Nursing notes reviewed. Additional history obtained from family. The patient's history was concerning for abdominal pain. Differential diagnosis: Etiologies such as appendicitis, diverticulitis, PUD, biliary pathology, UTI, pancreatitis, obstruction, mesenteric ischemia, aortic pathology, infections, inflammatory bowel disease, renal colic, as well as others were entertained. Physical examination findings: As above. ER treatment provided: An order was placed for continuous cardiac monitoring. The monitor shows a rate of 60-100 with a sinus rhythm per my Independent interpretation. IV fluids, Zofran, Tylenol On reassessment the patient felt better. Diagnostics interpreted by me: The labs Independently Interpreted by myself revealed no worrisome leukocytosis, mild anemia, negative urine. Glucose 105. Hypercoagulable workup initiated Imaging studies: Imaging as above and concerning for left renal infarct. More imaging was ordered Consultation: A consultation was placed with the hospitalist. The case was discussed and diagnostics were reviewed. The patient was evaluated in the ER for further treatment. Exam and history seem consistent with left renal infarct. Patient has no known history of A-fib. She is a distant history of smoking. Patient is agreeable treatment plan of admission. Hypercoagulable workup was initiated. Ultrasounds were ordered. Medicine is consulted case discussed. Patient admitted to the medical service for further evaluation and workup. By the evaluation outlined above emergent etiologies such as appendicitis, diverticulitis, PUD, biliary pathology, UTI, pancreatitis, obstruction, aortic pathology, infections, inflammatory bowel disease, renal colic, as well as others were deemed relatively unlikely. The pt informed about the findings as listed above. All questions were answered and pleased with the treatment. The chart was completed utilizing [employer] Speech voice recognition software. Grammatical errors, random word insertions, pronoun errors, and incomplete sentences are an occassional consequence of this system due to software limitations, ambient noise, and hardware issues. Any formal questions or concerns about the content, text, or information contained within the body of this dictation should be directly addressed to the physician certified teacher assistant for clarification. Impression & Plan Infarction of kidney Discharge Plan Visit Data Chief Complaint: Vomiting Stated Complaint: VOMITING, ABD PAIN ED Provider: Magen Del Castillo ED Midlevel Provider: Shakira Wylie Discharge Problem: Infarction of kidney Patient Disposition: Admitted As Inpatient Condition: Good Discharge Instructions Interventions: ED Discharge Assessment Last Done: 08/22/23 10:48 Addendum August 23, 2023 17:14 I was consulted by the Advanced Practice Provider and was substantively involved in the patient's visit.This includes aspects of the HPI, MDM, diagnostic interpretations, and disposition/plan. I discussed the case with the DAMIAN and agree with the findings and plan as documented in DAMIAN Dejan's note.
--- NOTE | 2023-08-22 00:24 | CT Scan Report ---
Exam(s): CT ABDOMEN + PELVIS With Contrast IV Amt: 92 ML OPTIRAY 320 EXAM: CT Abdomen and Pelvis With Intravenous Contrast CLINICAL HISTORY: Reason for exam: lower abd pain. TECHNIQUE: Axial computed tomography images of the abdomen and pelvis with intravenous contrast. CTDI is 16.19 mGy and DLP is 668.01 mGy-cm. Automated exposure control was utilized for the study. A dose lowering technique was utilized adhering to the principles of ALARA. CONTRAST: Patient received 92 ML OPTIRAY 320 of IV contrast COMPARISON: No relevant prior studies available. FINDINGS: Lung bases: Unremarkable. No mass. No consolidation. ABDOMEN: Liver: Unremarkable. No mass. Gallbladder and bile ducts: Unremarkable. No calcified stones. No ductal dilation. Pancreas: Unremarkable. No mass. No ductal dilation. Spleen: Unremarkable. No splenomegaly. Adrenals: Unremarkable. No mass. Kidneys and ureters: Wedge-shaped decreased enhancement of the LEFT upper pole and mid pole, concerning for renal infarcts. No hydronephrosis. Stomach and bowel: Diverticulosis, without acute diverticulitis. No small bowel obstruction. No free intraperitoneal air. PELVIS: Appendix: No findings to suggest acute appendicitis. Bladder: Unremarkable. No mass. Reproductive: Hysterectomy. ABDOMEN and PELVIS: Intraperitoneal space: Unremarkable. No free air. No significant fluid collection. Bones/joints: Degenerative changes of the spine. No acute fracture. No dislocation. Soft tissues: Unremarkable. Vasculature: Atherosclerotic changes of the aorta. No abdominal aortic aneurysm. Lymph nodes: Unremarkable. No enlarged lymph nodes. IMPRESSION: 1. Wedge-shaped decreased enhancement of the LEFT upper pole and mid pole, concerning for renal infarcts. 2. Hysterectomy. 3. Diverticulosis, without acute diverticulitis. No small bowel obstruction. No free intraperitoneal air. Electronically signed by: Ruben Huff MD 08/22/23 00:23 AM
[2023-08-22] MEDS ORDERED: MoRPHine SULFATE 2 MG/ML CARP IV PRN (01:52)
--- NOTE | 2023-08-22 02:02 | History & Physical Report ---
Date of Service August 22, 2023 Assessment & Plan (1) Infarction of kidney: (2) CAD (coronary artery disease): (3) COPD (chronic obstructive pulmonary disease): (4) History of non-ST elevation myocardial infarction (NSTEMI): (5) Bipolar disorder: (6) Anxiety with depression: (7) Asthma: (8) Tobacco use: Plan Infarcts of left upper and middle renal pole- Patient had abdominal pain for 2 weeks, which worsened over the past 2 days, and became accompanied by nausea and vomiting CT scan abdomen and pelvis with contrast was performed in the ED Will order ultrasound of aorta, and renal duplex ultrasound Patient may need aortic study with runoff Continue aspirin 81 mg daily Start Eliquis 10 mg p.o. twice daily for 1 week, then 5 mg p.o. twice daily x 6 months, then remain on aspirin indefinitely, or consider change to clopidogrel since infarcts happened on ASA Check a fasting lipid panel, and start atorvastatin 40 mg daily The patient will be admitted to telemetry for serial cardiac enzymes, serial EKG's, cardiac rhythm monitoring and a 2-D echocardiogram with Dopplers. No sign of atrial fibrillation during monitoring in the ED Tobacco cessation was successful in 2015 Alcohol is social Normal saline 500 mL bolus given by the ED Place on NSS at 80 mL/h x 2 L Acetaminophen 1 g IV every 8 hours as needed for mild pain or fever Morphine sulfate 2 mg IV every 3 hours as needed for moderate pain Morphine sulfate 4 mg IV every 3 hours as needed for severe pain When nausea is improved, patient can be changed over to oral pain medications Consult placed to urology CAD/hypertension/history of NM about 10 years ago- NM episode prompted tobacco cessation Continue aspirin and metoprolol succinate Bipolar disorder/anxiety with depression- Continue alprazolam, citalopram History of Present Illness Chief Complaint: The patient presents to the emergency department with complaint of left lower quadrant and left flank pain over the past 2 weeks, which worsened over the past 2 days and is now accompanied by nausea and vomiting. Primary Care Provider: AUDREY Aranda The patient is a 63-year-old female with a past medical history including obesity, CAD, history of tobacco use, COPD, history of NSTEMI, GERD, bipolar disorder, anxiety with depression and asthma. She presents to the emergency department with symptoms as noted above. CT scan of abdomen pelvis reveals renal infarct in the left upper and left mid poles, and is being admitted for further workup Allergies Allergy/AdvReac Type Severity Reaction Status Date / Time umeclidinium AdvReac Intermediate Vomiting Verified 08/21/23 22:10 [From Anoro Ellipta] vilanterol AdvReac Intermediate Vomiting Verified 08/21/23 22:10 [From Anoro Ellipta] Home Medications Medication Instructions Recorded Confirmed Type latanoprost 0.005 % eye drops 1 drp ophthalmic (eye) .COMPLEX 11/24/22 08/21/23 Rx #7.5 mL cholecalciferol (vitamin D3) 25 100 mcg PO QAM 01/17/23 08/21/23 History mcg (1,000 unit) tablet citalopram 40 mg tablet 40 mg PO QAM #90 tabs 05/15/23 08/21/23 Rx furosemide 20 mg tablet 20 mg PO .COMPLEX #90 tabs 06/20/23 08/21/23 Rx alprazolam 0.5 mg tablet 0.5 mg PO BID #45 tabs 08/10/23 08/21/23 Rx albuterol sulfate 90 mcg/actuation 1 inh inhalation QID shortness of 08/21/23 08/21/23 History aerosol inhaler breath or wheezing aspirin 81 mg chewable tablet 81 mg PO QAM 08/21/23 08/21/23 History (Aspirin Childrens) cyanocobalamin (vitamin B-12) 1,000 mcg PO QAM 08/21/23 08/21/23 History 1,000 mcg tablet (Vitamin B-12) ipratropium 20 mcg-albuterol 100 2 puff inhalation BID 08/21/23 08/21/23 History mcg/actuation mist for inhalation (Combivent Respimat) metoprolol succinate 25 mg 25 mg PO QAM 08/21/23 08/21/23 History tablet,extended release 24 hr Past Med/Surg History Problem List Infarction of kidney (Acute) Obesity Skin tag of labia CAD (coronary artery disease) Bilateral cataracts Removal scheduled 01/19/21 Glaucoma (Chronic) COPD (chronic obstructive pulmonary disease) (Chronic) Alcohol use Chronic anemia (Chronic) History of non-ST elevation myocardial infarction (NSTEMI) (Chronic) 2016>NO CARDS NOW GERD (gastroesophageal reflux disease) (Chronic) Bipolar disorder (Chronic) Anxiety with depression (Chronic) Asthma (Chronic) Surgical History History of section X 1 History of hysterectomy History of colonoscopy History of tooth extraction History of tonsillectomy History of cataract surgery RT/LEFT History of cardiac cath 2016: 30% occlusion LAD>NO STENTS AT [facility] Family History Brother Prostate cancer Father Myocardial infarction Other No family history of adverse response to anesthesia Denies family history of Family hx of colon cancer Ovarian cancer Breast cancer Colorectal cancer Social History Smoking Status: Former smoker Age Quit Using Tobacco: 52; Second Hand Exposure: No; Do You Dip or Chew Tobacco: No; Tobacco Cessation Education Requested by Patient: No Hx Alcohol Use: Yes Alcohol type: beer Hx Substance Use: No Preferred Language: Frisian Communication Ability: Effective Visual Impairment: No Limitations Hearing Ability: Normal Housekeeping Lead Required: No Beliefs That Will Affect Care: None marital status: / Current Living Situation: Alone current occupational status: disabled How many Children do You have: 1 Other Information That Helps Us Care for You: No Feels Safe at Home: Yes Safety Concerns: Feels Safe At This Time Childhood Exposure to Second-Hand Smoke: No Diet: regular Diet Comment: regular caffeine: Yes during the past year weight has: remained stable Dental Care, Regularly: No Physical Activity Frequency: Daily Seatbelt Use: always Sunscreen Use: Yes Assistive Devices: None Review of Systems Review of Systems: The patient denies chest pain, palpitations, shortness of breath, dyspnea on exertion, cough, lower extremity swelling, sore throat, fevers, chills, sweats, weight change, fatigue, nausea, vomiting, diarrhea , constipation, blood in urine or stool, dysuria, urinary frequency or urgency, lightheadedness, dizziness, headache, memory loss, loss of consciousness, rash, abnormal bruising or bleeding, imbalance, focal or generalized weakness, numbness or tingling in arms or legs, generalized arthralgias or myalgias, neck pain, or night sweats. The review of systems is otherwise negative other than for that already noted above, and at least 10 systems have been reviewed. Physical Exam Physical Exam: The patient is awake, alert and oriented 3, well developed and well nourished, normocephalic and atraumatic, lying in bed and in mild distress secondary to abdominal pain HEENT--PERRL, EOMI, mucous membranes and oropharynx dry. Neck--supple. No JVD. No bruits. Thyroid normal, trachea midline, no adenopathy. Heart--normal S1 and S2. No murmurs, rubs or gallops. Lungs--clear bilaterally, no respiratory distress, no accessory muscle use. Abdomen--normal bowel sounds and soft. Nontender. Nondistended, no hernias or masses, no organomegaly. Extremities--no cyanosis or clubbing. No edema. Dermatologic--normal skin turgor, normal color, no abnormal lymph nodes, no rash. Neurologic--cranial nerves II through XII grossly intact. Rheumatologic--normal range of motion. Psychiatric--normal affect. Results & Data Results & Data Vital Signs (Past 12 Hours) Vital Signs Temp Pulse Pulse Resp BP BP Pulse Ox 08/21/23 22:01 57 L 16 134/68 94 08/21/23 22:00 59 L 16 94 08/21/23 20:40 36.9 C 50 L 16 154/67 H 95 O2 Del Method 08/21/23 22:01 Room Air 08/21/23 22:00 Room Air 08/21/23 20:40 Room Air Laboratory Results Laboratory Results WBC 6.47 K/ul (4.8-10.8) 08/21/23 23:31 RBC 3.50 M/uL (4.20-5.40) L 08/21/23 23:31 Hgb 11.8 g/dl (12.0-16.0) L 08/21/23 23:31 Hct 35.1 % (37.0-47.0) L 08/21/23 23: MCV 100.3 fL (80.0-100.0) H 08/21/23 23:31 MCH 33.7 pg (25.0-34.0) 08/21/23 23: MCHC 33.6 g/dL (32.0-36.0) 08/21/23 23:31 RDW Std Deviation 51.0 fL (36.4-46.3) H 08/21/23 23: RDW Coeff of Adrián 13.8 % (11.5-14.5) 08/21/23 23: Plt Count 219 K/uL (130-400) 08/21/23 23:31 MPV 10.7 fL (9.4-12.4) 08/21/23 23:31 Immature Gran % (Auto) 0.5 % 08/21/23 23:31 Neut % (Auto) 73.4 % 08/21/23 23:31 Lymph % (Auto) 17.8 % 08/21/23 23:31 [place] % (Auto) 6.6 % 08/21/23 23: Eos % (Auto) 0.8 % 08/21/23 23:31 Baso % (Auto) 0.9 % 08/21/23 23: Neut # (Auto) 4.75 K/uL (1.40-6.50) 08/21/23 23:31 Lymph # (Auto) 1.15 K/uL (1.20-3.40) L 08/21/23 23:31 [place] # (Auto) 0.43 K/uL (0.11-0.59) 08/21/23 23:31 Eos # (Auto) 0.05 K/uL (0.00-0.50) 08/21/23 23:31 Baso # (Auto) 0.06 K/uL (0.00-0.20) 08/21/23 23: Immature Gran # (Auto) 0.03 K/uL (0.01-0.20) 08/21/23 23:31 Absolute Nucleated RBC Cancelled 08/21/23 20:52 Nucleated RBC % (auto) Cancelled 08/21/23 20:52 Neutrophils % (Manual) Cancelled 08/21/23 20:52 Band Neutrophils % Cancelled 08/21/23 20:52 Lymphocytes % (Manual) Cancelled 08/21/23 20:52 Prolymphocyte % Cancelled 08/21/23 20:52 Reactive Lymphs % (Man) Cancelled 08/21/23 20:52 Monocytes % (Manual) Cancelled 08/21/23 20:52 Eosinophils % (Manual) Cancelled 08/21/23 20:52 Basophils % (Manual) Cancelled 08/21/23 20:52 Metamyelocytes % (Man) Cancelled 08/21/23 20:52 Myelocytes % (Man) Cancelled 08/21/23 20:52 Promyelocytes % (Man) Cancelled 08/21/23 20:52 Blast Cells % (Manual) Cancelled 08/21/23 20:52 Plasma Cell % (Manual) Cancelled 08/21/23 20:52 Other Cells % Cancelled 08/21/23 20:52 Nucleated RBC % Cancelled 08/21/23 20:52 Neutrophils # (Manual) Cancelled 08/21/23 20:52 Band Neutrophils # Cancelled 08/21/23 20:52 Total Absolute Neuts Cancelled 08/21/23 20:52 Lymphocytes # (Manual) Cancelled 08/21/23 20:52 Prolymphocyte # Cancelled 08/21/23 20:52 Reactive Lymphs # Cancelled 08/21/23 20:52 Total Abs Lymphocytes Cancelled 08/21/23 20:52 Monocytes # (Manual) Cancelled 08/21/23 20:52 Eosinophils # (Manual) Cancelled 08/21/23 20:52 Basophils # (Manual) Cancelled 08/21/23 20:52 Metamyelocytes # (Man) Cancelled 08/21/23 20:52 Myelocytes # (Manual) Cancelled 08/21/23 20:52 Promyelocytes # (Man) Cancelled 08/21/23 20:52 Blast Cells # (Man) Cancelled 08/21/23 20:52 Plasma Cell # (Manual) Cancelled 08/21/23 20:52 Other Cells # Cancelled 08/21/23 20:52 Nucleated RBCs # (Man) Cancelled 08/21/23 20:52 Hypersegmented Neuts Cancelled 08/21/23 20:52 Hyposegmented Neuts Cancelled 08/21/23 20:52 Hypogranular Neuts Cancelled 08/21/23 20:52 Large Granular Lymphs Cancelled 08/21/23 20:52 # Lrg Granular Lymphs Cancelled 08/21/23 20:52 Hairy Cells Cancelled 08/21/23 20:52 Smudge Cells Cancelled 08/21/23 20:52 Toxic Granulation Cancelled 08/21/23 20:52 Toxic Vacuolation Cancelled 08/21/23 20:52 Dohle Bodies Cancelled 08/21/23 20:52 Nick Rods Cancelled 08/21/23 20:52 Platelet Estimate Cancelled 08/21/23 20:52 Hypogranular Platelets Cancelled 08/21/23 20:52 Giant Platelets Cancelled 08/21/23 20:52 Platelet Satelliting Cancelled 08/21/23 20:52 RBC Morphology Cancelled 08/21/23 20:52 Polychromasia Cancelled 08/21/23 20:52 Hypochromasia Cancelled 08/21/23 20:52 Poikilocytosis Cancelled 08/21/23 20:52 Basophilic Stippling Cancelled 08/21/23 20:52 Anisocytosis Cancelled 08/21/23 20:52 Microcytosis Cancelled 08/21/23 20:52 Macrocytosis Cancelled 08/21/23 20:52 Spherocytes Cancelled 08/21/23 20:52 Pappenheimer Bodies Cancelled 08/21/23 20:52 Sickle Cells Cancelled 08/21/23 20:52 Target Cells Cancelled 08/21/23 20:52 Tear Drop Cells Cancelled 08/21/23 20:52 Ovalocytes Cancelled 08/21/23 20:52 Stomatocytes Cancelled 08/21/23 20:52 Roberts-[place] Bodies Cancelled 08/21/23 20:52 Echinocytes Cancelled 08/21/23 20:52 Acanthocytes (Spur) Cancelled 08/21/23 20:52 Rouleaux Cancelled 08/21/23 20:52 RBC Agglutinates Cancelled 08/21/23 20:52 Schistocytes Cancelled 08/21/23 20:52 Sezary Cell Cancelled 08/21/23 20:52 Sodium 138 mmol/L (136-145) 08/22/23 01:58 Potassium 3.9 mmol/L (3.5-5.1) D 08/22/23 01:58 Chloride 100 mmol/L (98-107) 08/22/23 01:58 Carbon Dioxide 31 mmol/L (21-32) 08/22/23 01:58 Anion Gap 7 (3-11) 08/22/23 01:58 BUN 15 mg/dl (6-23) 08/22/23 01:58 Creatinine 0.93 mg/dl (0.6-1.2) 08/22/23 01:58 Est Cr Clr Drug Dosing 51.9 ml/min 08/22/23 01:58 Est GFR ( Amer) 74.7 ml/min 08/22/23 01:58 Est GFR (Non-Af Amer) 64.5 ml/min 08/22/23 01:58 BUN/Creatinine Ratio 16.1 (10-20) 08/22/23 01:58 Glucose 115 mg/dl (70-99(Fasting)) H 08/22/23 01:58 Lactate 0.8 mmol/L (0.4-2.0) 08/22/23 01:55 Calcium 8.9 mg/dl (8.6-10.3) 08/22/23 01:58 Phosphorus 4.4 mg/dl (2.5-4.9) 08/22/23 01:58 Magnesium 1.8 mg/dl (1.7-2.4) 08/22/23 01:58 Total Bilirubin 0.4 mg/dl (0.2-1.0) 08/21/23 20:52 AST 22 U/L (13-39) 08/21/23 20:52 ALT 18 U/L (7-52) 08/21/23 20:52 Alkaline Phosphatase 73 U/L (34-104) 08/21/23 20:52 Total Protein 7.7 gm/dl (6.0-8.3) 08/21/23 20:52 Albumin 4.1 gm/dl (3.4-5.0) 08/22/23 01:58 Globulin 3.3 gm/dl (2.5-4.0) 08/21/23 20:52 Albumin/Globulin Ratio 1.3 (0.9-2) 08/21/23 20:52 Lipase 28 U/L (11-82) 08/21/23 20:52 Urine Color Yellow 08/21/23 20:55 Urine Appearance Cloudy (Clear) A 08/21/23 20:55 Urine pH 5.0 (4.5-7.5) 08/21/23 20:55 Ur Specific [place] 1.021 (1.000-1.030) 08/21/23 20:55 Urine Protein 1+ (Negative) H 05/14/24 20:55 Urine Glucose (UA) Negative (Negative) 08/21/23 20:55 Urine Ketones Negative (Negative) 08/21/23 20:55 Urine Blood Negative (Negative) 08/21/23 20:55 Urine Nitrite Negative (Negative) 08/21/23 20:55 Urine Bilirubin Negative (Negative) 08/21/23 20:55 Urine Urobilinogen Negative (Negative) 08/21/23 20:55 Ur Leukocyte Esterase Negative (Negative) 08/21/23 20:55 Urine WBC (Auto) 0-5 /hpf (0-5) 08/21/23 20:55 Urine RBC (Auto) 0-2 /hpf (0-2) 08/21/23 20:55 U Hyaline Cast (Auto) >20 /lpf (0-2) H 08/21/23 20:55 U Epithel Cells (Auto) 3-5 /hpf (0-2) H 08/21/23 20:55 Urine Bacteria (Auto) None Seen (None Seen) 08/21/23 20:55 Blood Parasites ID Cancelled 08/21/23 20:52 Impressions Abdomen/Pelvis CT 08/21/23 22:26 Exam(s): CT ABDOMEN + PELVIS With Contrast IV Amt: 92 ML OPTIRAY 320 EXAM: CT Abdomen and Pelvis With Intravenous Contrast CLINICAL HISTORY: Reason for exam: lower abd pain. TECHNIQUE: Axial computed tomography images of the abdomen and pelvis with intravenous contrast. CTDI is 16.19 mGy and DLP is 668.01 mGy-cm. Automated exposure control was utilized for the study. A dose lowering technique was utilized adhering to the principles of ALARA. CONTRAST: Patient received 92 ML OPTIRAY 320 of IV contrast COMPARISON: No relevant prior studies available. FINDINGS: Lung bases: Unremarkable. No mass. No consolidation. ABDOMEN: Liver: Unremarkable. No mass. Gallbladder and bile ducts: Unremarkable. No calcified stones. No ductal dilation. Pancreas: Unremarkable. No mass. No ductal dilation. Spleen: Unremarkable. No splenomegaly. Adrenals: Unremarkable. No mass. Kidneys and ureters: Wedge-shaped decreased enhancement of the LEFT upper pole and mid pole, concerning for renal infarcts. No hydronephrosis. Stomach and bowel: Diverticulosis, without acute diverticulitis. No small bowel obstruction. No free intraperitoneal air. PELVIS: Appendix: No findings to suggest acute appendicitis. Bladder: Unremarkable. No mass. Reproductive: Hysterectomy. ABDOMEN and PELVIS: Intraperitoneal space: Unremarkable. No free air. No significant fluid collection. Bones/joints: Degenerative changes of the spine. No acute fracture. No dislocation. Soft tissues: Unremarkable. Vasculature: Atherosclerotic changes of the aorta. No abdominal aortic aneurysm. Lymph nodes: Unremarkable. No enlarged lymph nodes. IMPRESSION: 1. Wedge-shaped decreased enhancement of the LEFT upper pole and mid pole, concerning for renal infarcts. 2. Hysterectomy. 3. Diverticulosis, without acute diverticulitis. No small bowel obstruction. No free intraperitoneal air. Electronically signed by: Ruben Huff MD 08/22/23 00:23 AM Code Status & VTE Plan Code Status Full code VTE Prophylaxis Plan VTE Prophylaxis will be ordered: Yes PG Care Time/CCT Total # of Minutes Spent Total Time Spent with Patient: Total time spent is greater than 50% in coordination of care (as documented) at patient's floor/unit and/or counseling patient: Coding Level of Care Code 64496 INT INP/OBS CARE 3/75MIN Diagnoses Infarction of kidney N28.0 CAD (coronary artery disease) I25.10 COPD (chronic obstructive pulmonary disease) J44.9 History of non-ST elevation myocardial infarction (NSTEMI) I25.2 Bipolar disorder F31.9 Anxiety with depression F41.8 Asthma J45.909 Tobacco use Z72.0
[2023-08-22] MEDS: SODIUM CHLORIDE 0.9% 1,000 ML IV SCH (04:13)
[2023-08-22] MEDS: MoRPHine SULFATE 4 MG/ML 1 ML CARP\\VIAL IV PRN (04:14)
[2023-08-22 04:17] LABS: Albumin Level 4.1 gm/dl (3.4-5.0); BUN Creatinine Ratio 16.1 (10-20); Calcium 8.9 mg/dl (8.6-10.3); Creatinine Clr Calc Pharmacy 51.9 ml/min; Est GFR (African American) 74.7 ml/min; Est GFR (Non-African American) 64.5 ml/min; Magnesium 1.8 mg/dl (1.7-2.4); Phosphorus 4.4 mg/dl (2.5-4.9); Potassium 3.9 mmol/L (3.5-5.1)
--- NOTE | 2023-08-22 04:21 | Urology Consultation ---
<Statement entered by Moris Merlos MD - 08/22/23 07:56> I have discussed Ms. Hu case with Sampson Merino PA-C and agree with the above documentation. CT scan concerning for infarct of the upper pole of the left kidney. Would recommend hypercoagulability workup, consider anticoagulation. On my review of imaging, there is a heterogeneous appearance to the interpolar region of the left kidney. This may represent an additional area of infarction although I think it will require reimaging once she is out of the hospital to further characterize this area and ensure there is no malignancy. Unfortunately, there is no urologic intervention to revascularize this area of the upper pole of the left kidney. Would recommend pain control and monitoring. -Moris Merlos MD. Date of Consultation August 22, 2023 Assessment & Plan (1) Infarction of kidney: The patient has been admitted on the hospitalist service.From a urologic perspective we recommend the following: It appears that the patient has renal infarction of the upper pole of the left kidney. Medicine has initiated hypercoagulable workup which I agree with. In addition an echocardiogram should be performed to evaluate for cardioembolic source of thrombus causing her renal infarct Serial labs should be followed it Will be beneficial to monitor the patient on telemetry to look for cardiac arrhythmia as a potential source of thromboembolic source of her renal infarct Supportive care should be employed At the present time the patient is afebrile and nontoxic-appearing. She also has no back or flank pain. The patient has had a renal ultrasound. This has not been formally read by radiology but the technologist notes that there not appear to be any compromise blood flow to the main renal artery however the upper pole the left kidney appeared to have decreased blood flow. Consideration should be given to initiating anticoagulation If the patient's clinical picture changes consideration should be given to perform repeat imaging The above recommendations were discussed with the hospitalist service History of Present Illness Reason for Consultation: Left renal infarct Attending Physician: Jose Baptiste MD History of Present Illness This is a 63-year-old female who presented to the emergency department secondary to abdominal pain. The patient says that she has been having on and off abdominal pain for approximately 3 weeks but got worse over the past 24 hours with associated nausea and vomiting. She has not had any fevers, shakes, or chills. She denies any back or flank pain. She notes that her bowels are moving normally. She notes that she is urinating without difficulty or without any hematuria. She has not had any recent medical procedures. To the best of her knowledge she does not have any known hypercoagulable state. She does not have any known heart arrhythmias. Since arrival to the hospital the patient has had labs and imaging which I independent reviewed. A CT scan of the abdomen pelvis showed the patient had a wedge-shaped area of decreased enhancement of the upper pole of the left kidney concerning for renal infarct. Labs included a CBC were white blood cell count platelet count were normal. Hemoglobin and hematocrit are 11.8 and 35.1. Chemistry profile has shown sodium and potassium as well as the BUN and creatinine were normal. Urinalysis was performed and was shown to demonstrate 1+ protein and some cloudy urine but was otherwise negative for infection. At the time my interview the patient was resting comfortably in bed and she was no distress. Allergies Allergy/AdvReac Type Severity Reaction Status Date / Time umeclidinium AdvReac Intermediate Vomiting Verified 08/21/23 22:10 [From Anoro Ellipta] vilanterol AdvReac Intermediate Vomiting Verified 08/21/23 22:10 [From Anoro Ellipta] Home Medications Medication Instructions Recorded Confirmed Type latanoprost 0.005 % eye drops 1 drp ophthalmic (eye) .COMPLEX 11/24/22 08/21/23 Rx #7.5 mL cholecalciferol (vitamin D3) 25 100 mcg PO QAM 01/17/23 08/21/23 History mcg (1,000 unit) tablet citalopram 40 mg tablet 40 mg PO QAM #90 tabs 05/15/23 08/21/23 Rx furosemide 20 mg tablet 20 mg PO .COMPLEX #90 tabs 06/20/23 08/21/23 Rx alprazolam 0.5 mg tablet 0.5 mg PO BID #45 tabs 08/10/23 08/21/23 Rx albuterol sulfate 90 mcg/actuation 1 inh inhalation QID shortness of 08/21/23 08/21/23 History aerosol inhaler breath or wheezing aspirin 81 mg chewable tablet 81 mg PO QAM 08/21/23 08/21/23 History (Aspirin Childrens) cyanocobalamin (vitamin B-12) 1,000 mcg PO QAM 08/21/23 08/21/23 History 1,000 mcg tablet (Vitamin B-12) ipratropium 20 mcg-albuterol 100 2 puff inhalation BID 08/21/23 08/21/23 History mcg/actuation mist for inhalation (Combivent Respimat) metoprolol succinate 25 mg 25 mg PO QAM 08/21/23 08/21/23 History tablet,extended release 24 hr Patient History Surgical History History of section X 1 History of hysterectomy History of colonoscopy History of tooth extraction History of tonsillectomy History of cataract surgery RT/LEFT History of cardiac cath 2016: 30% occlusion LAD>NO STENTS AT [facility] Family History Brother Prostate cancer Father Myocardial infarction Other No family history of adverse response to anesthesia Denies family history of Family hx of colon cancer Ovarian cancer Breast cancer Colorectal cancer Social History Smoking Status: Never smoker Age Quit Using Tobacco: 52; Second Hand Exposure: Yes (IN THE PAST); Do You Dip or Chew Tobacco: No; Hx Alcohol Use: No Hx Substance Use: No Preferred Language: Romansh Communication Ability: Effective Visual Impairment: No Limitations Hearing Ability: Normal Donor Support Technician Required: No Beliefs That Will Affect Care: None marital status: / Current Living Situation: Significant Other current occupational status: disabled How many Children do You have: 1 Feels Safe at Home: Yes Childhood Exposure to Second-Hand Smoke: No Diet: regular Diet Comment: regular caffeine: Yes during the past year weight has: remained stable Dental Care, Regularly: No Physical Activity Frequency: Daily Seatbelt Use: always Sunscreen Use: Yes Assistive Devices: Denture - Upper and Denture - Lower Review of Systems Review of Systems: All systems reviewed & are unremarkable except as noted in HPI & below Physical Exam Constitutional: WD/WN, vitals as above Eyes: no conjunctival abnormality ENMT: Ears: no hearing impairment Mouth: no oropharynx abnormality Neck: trachea midline Respiratory: normal respiratory effort; no respiratory distress and no labored breathing Cardiovascular: Rate/Rhythm: regular rate and regular rhythm Gastrointestinal (Abdomen): Abdomen is soft and nondistended. There is no rebound tenderness or guarding. There is no rebound tenderness or guarding Musculoskeletal: No calf tenderness Skin: no rashes Neurologic: moves all extremities Psychiatric: A+Ox3, euthymic affect Genitourinary: No CVA tenderness with percussion bilaterally Results & Data Vital Signs (Past 12 Hours) Vital Signs Temp Pulse Pulse Resp BP BP Pulse Ox 08/22/23 02:03 51 L 16 180/79 H 95 08/21/23 22:01 57 L 16 134/68 94 08/21/23 22:00 59 L 16 94 08/21/23 20:40 36.9 C 50 L 16 154/67 H 95 O2 Del Method 08/22/23 02:03 Room Air 08/21/23 22:01 Room Air 08/21/23 22:00 Room Air 08/21/23 20:40 Room Air PG Care Time/CCT Total # of Minutes Spent Total Time Spent with Patient: Total time spent is greater than 50% in coordination of care (as documented) at patient's floor/unit and/or counseling patient: Coding Level of Care Code 79027 INT INP/OBS CARE 3/75MIN Diagnoses Infarction of kidney N28.0
[2023-08-22 05:51] LABS: Chol HDL Ratio 2.9 (0-5)
--- NOTE | 2023-08-22 07:33 | Ultrasound Report ---
US duplex aorta/iliacs/IVC ltd HISTORY: 63 years-old Female left renal infarct acute left-sided flank pain COMPARISON: CT 08/21/2023 TECHNIQUE: Multiple real-time sonographic images of the abdominal aorta were obtained assessing dennise kami appearance, color and spectral flow. FINDINGS: Atherosclerosis of the abdominal aorta without aneurysm or dissection. Obscuring bowel gas limits the study. Proximal aorta measures 1.9 x 2.2 cm. The distal aorta measuring 1.2 x 1.1 cm. The iliac kassidy nikki are normal in caliber. Normal blood flow within the aorta, peak systolic velocities measuring 69 cm/s. IMPRESSION: Atherosclerosis without abdominal aortic aneurysm or dissection. ACT 112: Negative or not required by law. The above report was generated using voice recognition software. It may contain grammatical, syntax o r spelling errors. Electronically signed by: Tr Manuel M.D. 08/22/2023 7:30 AM
[2023-08-22] MEDS: Ipratropium HFA Inhaler (Combivent Respimat P&T Subs) INH SCH (07:40)
[2023-08-22] MEDS: Albuterol HFA 8 GM Inhaler (Combivent Respimat P&T Subs) INH SCH (07:40)
--- NOTE | 2023-08-22 07:45 | Ultrasound Report ---
US duplex renal artery CLINICAL HISTORY: left renal infarct TECHNIQUE: Real-time grayscale and color and spectral Doppler ultrasound imaging of the kidneys was p erformed. Comparison: Comparison is made to CT 08/21/2023 FINDINGS: Right kidney measures 10.9 cm. Left kidney measures 10.8 cm. RIGHT: The right kidney is normal in size, contour, cortical thickness, and echogenicity. No hydronephrosis is identified. No renal lesion is identified. Spectral analysis: Intrarenal resistive indices measure up to 0.68. Waveforms are normal in appearance.. Renal artery ve locities and waveforms are normal. Renal vein patent. LEFT: The left kidney is normal in size, contour, cortical thickness and echogenicity. No hydronephrosis i s identified. Decreased arterial flow to the left kidney superior pole is seen. Spectral analysis: Intrarenal resistive indices measure up to 0.79. Waveforms are normal in appearance. Renal artery guero ocities and waveforms are normal. Renal vein patent. Abdominal aorta: Patent. Peak systolic velocity 125.9 cm/s. Reference ranges: Normal main renal artery peak systolic velocity less than 180 cm/s. Ratio of renal artery PSV to aort ic PSV less than 3.5 equates to normal or less than 60% stenosis. Only one of the two criteria listed needs to be met for diagnosis. Arcuate resistive indices about 0.8 are elevated. IMPRESSION: Diminished flow is seen in the left kidney superior pole. However no renal artery stenosis is seen. T here are borderline elevated resistive indices on the left. ACT 112: Negative or not required by law. Electronically signed by: Kemal Chavez M.D. 08/22/2023 7:44 AM
[2023-08-22] MEDS: ASPIRIN 81 MG CHEW PO SCH (08:22)
[2023-08-22] MEDS: ALPRAZolam 0.5 MG TABLET PO SCH (08:22)
[2023-08-22] MEDS: APIXABAN 5 MG TABLET PO SCH (08:23)
[2023-08-22] MEDS: ATORVASTATIN 40 MG TAB PO SCH (08:24)
[2023-08-22] MEDS: CHOLECALCIFEROL 25 MCG (1000 UNITS) TAB PO SCH (08:25)
[2023-08-22] MEDS: CYANOCOBALAMIN (B-12) 500 MCG TABLET PO SCH (08:26)
[2023-08-22] MEDS: CITALOPRAM 40 MG TAB PO SCH (08:26)
[2023-08-22] MEDS: METOPROLOL SUCC 25MG EXT REL TAB PO SCH (08:32)
[2023-08-22] MEDS ORDERED: IPRATROPIUM BROMIDE/ALBUTEROL respimat INH INH SCH (09:00)
--- NOTE | 2023-08-22 10:18 | XCELERA ---
[id number]
--- NOTE | 2023-08-22 13:22 | Hospitalist Progress Note ---
Date of Service August 22, 2023 Assessment & Plan (1) Infarction of kidney: (2) CAD (coronary artery disease): (3) COPD (chronic obstructive pulmonary disease): (4) History of non-ST elevation myocardial infarction (NSTEMI): (5) Bipolar disorder: (6) Anxiety with depression: (7) Asthma: (8) Tobacco use: Plan Infarcts of left upper and middle renal pole: CT scan abdomen and pelvis with contrast was performed in the ED, significant for wedge-shaped hypodensities in upper and mid poles of left kidney, suggestive of renal infarct. US aorta without abnormality Renal artery duplex US with diminished flow in left kidney superior pole, no renal artery stenosis noted. Start Eliquis 10 mg p.o. twice daily for 1 week, then 5 mg p.o. twice daily x 6 months, then remain on aspirin indefinitely, or consider change to clopidogrel since infarcts happened on ASA Check a fasting lipid panel, and start atorvastatin 40 mg daily TTE without evidence of cardiac emboli No sign of atrial fibrillation on telemetry Hypercoagulability labs pending Urology consulted, appreciate recs: - No acute intervention at this time, noted possibility of renal mass in left kidney, this will need updated imaging on outpatient follow up Continue pain control: - Acetaminophen 1 g IV every 8 hours as needed for mild pain or fever - Morphine sulfate 2 mg IV every 3 hours as needed for moderate pain - Morphine sulfate 4 mg IV every 3 hours as needed for severe pain CAD/hypertension/history of TN Former smoker, tobacco cessation following TN Continue aspirin and metoprolol succinate Started on Atorvastatin Bipolar disorder/anxiety with depression- Continue alprazolam, citalopram Dispo: PCU/Tele VTE ppx: Eliquis FEN/GI: Admission and Anticipated Discharge Date Admission Date: August 22, 2023 Supervising Physician Co-Signing Physician Notes I personally examined the patient and verified metcalf points of history and exam, discussed case, and agree with decision making and plan documented by Dr. Tamayo. Patient appears comfortable, lungs clear b/l to auscultation, regular rate and rhythm, no acute distress. Vital signs stable. Patient resting comfortably in bed on exam, states pain is controlled at present. Subjective Patient evaluated at bedside this morning, notes that she has had ongoing, constant pain in left flank region, rates pain as 8/10. Apart from this, denies fever/chills, dysuria, chest pain, SOB. Denies N/V, tolerating breakfast. Reviewed telemetry, patient consistently in sinus rhythm, patient denies h/o A- fib or other arrhythmia. Review of Systems Review of Systems: as per HPI Physical Exam Physical Exam: General: Alert and oriented. No acute distress Cardiac: Regular rate and rhythm, no murmurs appreciated Respiratory: Lungs clear to auscultation bilaterally, No increased work of mode thing Abdominal: +left flank TTP. Bowel sounds present. Extremities: No lower extremity edema Results & Data Results & Data Vital Signs (Past 12 Hours) Vital Signs Temp Pulse Pulse Resp BP BP Pulse Ox 08/22/23 11:15 36.8 C 52 L 18 153/76 H 94 08/22/23 10:30 54 L 16 99 08/22/23 10:02 142/50 H 08/22/23 10:02 42 L 10 L 98 08/22/23 10:00 43 L 9 L 98 08/22/23 09:30 47 L 21 99 08/22/23 09:00 50 L 18 99 08/22/23 08:30 50 L 15 94 08/22/23 08:30 50 L 18 175/94 H 97 08/22/23 08:29 48 L 19 99 08/22/23 08:29 175/94 H 08/22/23 08:00 142/60 H 08/22/23 08:00 50 L 19 90 08/22/23 07:40 51 L 16 100 08/22/23 07:30 44 L 11 L 99 08/22/23 07:05 42 L 08/22/23 07:00 43 L 10 L 100 08/22/23 07:00 128/66 08/22/23 06:30 49 L 19 100 08/22/23 06:00 144/74 H 08/22/23 06:00 43 L 10 L 100 08/22/23 05:49 08/22/23 05:49 46 L 18 152/62 H 99 08/22/23 05:39 154/62 H 08/22/23 05:39 40 L 13 100 08/22/23 05:34 43 L 08/22/23 05:30 49 L 20 97 08/22/23 04:33 46 L 16 190/86 H 95 08/22/23 02:03 51 L 16 180/79 H 95 Pulse Ox O2 Del Method O2 Del Method O2 Flow Rate O2 Flow Rate 08/22/23 11:15 Room Air 08/22/23 10:30 08/22/23 10:02 08/22/23 10:02 08/22/23 10:00 08/22/23 09:30 08/22/23 09:00 08/22/23 08:30 08/22/23 08:30 Nasal Cannula 2 08/22/23 08:29 08/22/23 08:29 08/22/23 08:00 08/22/23 08:00 08/22/23 07:40 Nasal Cannula 2 08/22/23 07:30 08/22/23 07:05 08/22/23 07:00 08/22/23 07:00 08/22/23 06:30 08/22/23 06:00 08/22/23 06:00 08/22/23 05:49 99 Nasal Cannula 2 08/22/23 05:49 Nasal Cannula 2 08/22/23 05:39 08/22/23 05:39 08/22/23 05:34 08/22/23 05:30 08/22/23 04:33 Room Air 08/22/23 02:03 Room Air Resident Activity Tracking Resident Involvement: Resident Care Provided Care Provided: Adult Hospital Medicine
--- NOTE | 2023-08-22 14:59 | Urology Progress Note ---
Date of Service August 22, 2023 Assessment & Plan (1) Infarction of kidney: (2) Left renal mass: Plan 63-year-old female currently admitted for a renal infarct of the left kidney. Urology was consulted. No acute urologic intervention necessary If patient needed any intervention, would require interventional radiology. Agree with workup to determine etiology of infarct. It appears she may have a renal mass in her left kidney so discussed this with her and I think she needs updated imaging in the future to better assess this Urology can see the patient as an outpatient for renal mass Urology to sign off Admission and Anticipated Discharge Date Admission Date: August 22, 2023 Subjective No acute issues overnight. Afebrile with stable vitals. No labs to review today. Patient reports feeling fatigued Review of Systems Review of Systems: 14 point review of systems negative outs abel of what is listed above in HPI Physical Exam Physical Exam: General: Alert and oriented, no acute distress HEENT: Normocephalic, mucous membranes moist Pulmonary: Nonlabored respirations Abdomen: Nondistended Extremities: Moves all 4 spontaneously Neuro: No gross deficits Skin: Warm, dry, no rashes noted Results & Data Vital Signs (Past 12 Hours) Vital Signs Temp Pulse Pulse Resp BP BP Pulse Ox 08/22/23 11:15 36.8 C 52 L 18 153/76 H 94 08/22/23 10:30 54 L 16 99 08/22/23 10:02 142/50 H 08/22/23 10:02 42 L 10 L 98 08/22/23 10:00 43 L 9 L 98 08/22/23 09:30 47 L 21 99 08/22/23 09:00 50 L 18 99 08/22/23 08:30 50 L 15 94 08/22/23 08:30 50 L 18 175/94 H 97 08/22/23 08:29 48 L 19 99 08/22/23 08:29 175/94 H 08/22/23 08:00 142/60 H 08/22/23 08:00 50 L 19 90 08/22/23 07:40 51 L 16 100 08/22/23 07:30 44 L 11 L 99 08/22/23 07:05 42 L 08/22/23 07:00 43 L 10 L 100 08/22/23 07:00 128/66 08/22/23 06:30 49 L 19 100 08/22/23 06:00 144/74 H 08/22/23 06:00 43 L 10 L 100 08/22/23 05:49 08/22/23 05:49 46 L 18 152/62 H 99 08/22/23 05:39 154/62 H 08/22/23 05:39 40 L 13 100 08/22/23 05:34 43 L 08/22/23 05:30 49 L 20 97 08/22/23 04:33 46 L 16 190/86 H 95 Pulse Ox O2 Del Method O2 Del Method O2 Flow Rate O2 Flow Rate 08/22/23 11:15 Room Air 08/22/23 10:30 08/22/23 10:02 08/22/23 10:02 08/22/23 10:00 08/22/23 09:30 08/22/23 09:00 08/22/23 08:30 08/22/23 08:30 Nasal Cannula 2 08/22/23 08:29 08/22/23 08:29 08/22/23 08:00 08/22/23 08:00 08/22/23 07:40 Nasal Cannula 2 08/22/23 07:30 08/22/23 07:05 08/22/23 07:00 08/22/23 07:00 08/22/23 06:30 08/22/23 06:00 08/22/23 06:00 08/22/23 05:49 99 Nasal Cannula 2 08/22/23 05:49 Nasal Cannula 2 08/22/23 05:39 08/22/23 05:39 08/22/23 05:34 08/22/23 05:30 08/22/23 04:33 Room Air PG Care Time/CCT Total # of Minutes Spent Total Time Spent with Patient: Total time spent is greater than 50% in coordination of care (as documented) at patient's floor/unit and/or counseling patient: Coding Level of Care Code 85406 SUB INP/OBS CARE 2/35MIN Diagnoses Infarction of kidney N28.0 Left renal mass N28.89
[2023-08-22] MEDS: ACETAMINOPHEN 1,000 MG/100 ML VIAL IV PRN (18:51)
[2023-08-22] MEDS: LATANOPROST 0.005% OP SOLN 2.5 ML BTL OPB SCH (20:05)
--- OUTSIDE RECORDS SUMMARY | 2023-08-22 23:06 | External Medical Summary | Summary of Care ---
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 Name Role Phone Unavailable Primary Care Provider Unavailabl e Encounter Details Date Type Department Care Team (Late st Contact Info) Description 05/15/2023 Orders Only Radiology [address] [place] [address] Requisition, External Radiology [address] [place] [address] Screening mammogram for high-risk patient* Allergies No known active allergiesdocumented as of this encounter (statuses as of 05/15/2023) Medications Medication Sig Dispensed Refills Start Date End Date Status ASPIR-LOW 81 MG PO TBEC one tab daily by mouth 0 Active latanoprost (XALATAN) 0.005 % ophthalmic solution Instill 1 Drop into both eyes at bedtime. 3 05/15/2016 Active Multiple Vitamins-Minerals (MULTIVITAMIN ADULT) CHEW Take by mouth. 0 07/11/2018 Active zoster vac recomb adjuvanted (SHINGRIX) 50 MCG/0.5ML injectionIndications:N eed for vaccination for zoster Inject 0.5 mL into a large muscle now and repeat dose in 60 to 180 days 1 Each 1 03/21/2019 Active Methylcobalamin (L54-LXRQMN) 1 MG CHEW Take 1 Dose by mouth daily. B12 chewable gummy takes one per day in the morning 0 Active fluticasone-salmeterol (ADVAIR DISKUS) 100-50 MCG/DOSE inhaler Inhale 1 Puff by mouth 2 times a day. 1 Each 5 09/22/2019 Active Vraylar 1.5 MG Oral CapsuleIndications:Bip olar disorder, current episode depressed, severe, without psychotic features (HCC) 0 02/06/2020 Active Combivent Respimat 20-100 MCG/ACT Inhalation Aerosol Solution (ipratropium-albuterol )Indications:Moderate persistent asthma without complication INHALE ONE PUFF BY MOUTH FOUR TIMES DAILY 4 g 2 04/15/2020 Active Citalopram Hydrobromide 40 MG Oral Tablet (CeleXA)Indications:De pression, unspecified depression type TAKE ONE TABLET BY MOUTH EVERY DAY 90 Tab 3 04/26/2020 Active Omeprazole 20 MG Oral Capsule Delayed Release (PriLOSEC)Indications: Gastroesophageal reflux disease without esophagitis take 1 capsule every day 1 hour before the first daily meal. 30 Cap 5 08/19/2020 Active ALPRAZolam 1 MG Oral Tablet (xaNAX)Indications:[place] ic disorder TAKE ONE TABLET BY MOUTH IN THE MORNING AND AT BEDTIME 60 Tab 0 11/11/2020 Active Furosemide 20 MG Oral Tablet (Lasix)Indications:Paul ma take 1 tab by mouth every other day and 2 tabs by mouth every other day 135 Tab 1 01/04/2021 Active Atorvastatin Calcium 40 MG Oral Tablet (Lipitor) Take 1 Tab by mouth daily. 0 12/22/2020 Active Montelukast Sodium 10 MG Oral Tablet (Singulair) Take 1 Tab by mouth daily. 0 01/05/2021 Active lamoTRIgine 100 MG Oral Tablet (LaMICtal) Take 50 mg by mouth daily. 0 12/30/2020 Active Vitamin D3 20 MCG (800 UNIT) Oral Tablet Take by mouth. 0 Act sarah Iron 325 (65 Fe) MG Oral Tablet Take by mouth. 0 Active Stiolto Respimat 2.5-2.5 MCG/ACT Inhalation Aerosol Solution (Tiotropium [place]-Olodaterol) Inhale 2 Puffs by mouth daily. 0 Active Durezol 0.05 % Ophthalmic Emulsion (Difluprednate) Instill into eye 4 times a day. Left eye 0 Active Refresh 1.4-0.6 % Ophthalmic Solution (polyvinyl alcohol-povidone PF) 1 Drop as needed. 0 Active buPROPion HCl ER (SR) 100 MG Oral Tablet Extended Release 12 Hour (Wellbutrin SR)Indications:Panic disorder,Generalized anxiety disorder TAKE ONE TABLET BY MOUTH TWICE DAILY 180 Tab 0 02/03/2021 Active documented as of this encounter (statuses as of 05/15/2023) Active Problems Problem Noted Date Diagnosed Date Diastolic dysfunction 12/26/2018 Manic depression 09/19/2018 Gastroesophageal reflux disease without esophagi tis 07/11/2018 Dyslipidemia, goal LDL below 130 11/19/2015 Headache 09/03/2014 Overview: ICD-10 update of inactive term Glaucoma 09/03/2014 Asthma, moderate persistent 09/25/2013 Overview: 01/29/19 In Check dial performed to assess inhaler technique: Name of inhaler Combivent Pass: Yes at 60L/min. Encourage to take nice slow deep breath. Test performed by Fabio [employer] Anemia 08/13/2012 Generalized anxiety disorder 03/20/2012 Panic disorder documented as of this encounter (statuses as of 05/15/2023) Resolved Problems Problem Noted Date Diagnosed Date Resolved Date Allergic rhinitis, cause unspecified 01/23/2013 04/27/2017 Need for prophylactic hormon e replacement therapy (postmenopausal) 10/20/2016 LOSS OF TEETH, ACQUIRED 10/07 documented as of this encounter (statuses as of 05/15/2023) Immunizations Name Administration Dates Next Due Pneumococcal Polysaccharide PPV23 (Pneumovax) Seasonal Influenza, PF, 6 M & above, IM , (FluLaval or Fluzone) 12/31/2019 Seasonal Influenza, Split, IIV3, With Preserve, Inj 03/09/2014 TD - Tetanus/Diptheria (ADULT) 04/11/2007 documented as of this encounter Social History Tobacco Use Types Packs/Day Years Used Date Smoking Tobacco: Former Cigarettes 0.3 20 Q uit: 05/14/2015 Smokeless Tobacco: Never Alcohol Use Standard Drinks/Week Comments No 0 (1 standard drink = 0.6 oz pur e alcohol) occ PHQ-2 Answer Date Recorded PHQ-2 Score 0 09/19/2018 Hunger Vital Sign Answer Date Recorded Worried About Running Out of Food in the Last Ye ar Never true 03/21/2019 Ran Out of Food in the Last Year Never true 03/21/2019 Sex and Gender Information Value Date Recorded Sex Assigned at Female 09/22/2019 7:48 AM EDT Gender Identity Female 09/22/2019 7:48 AM EDT Sexual Orientation Straight 09/22/2019 7: 48 AM EDT Job Start Date Occupation Industry Not on file Not on file Not on file documented as of this encounter Plan of Treatment Upcoming Encounters Date Type Department Care Team (Late st Contact Info) Description 06/08/2023 11:00 AM EST Imaging Radiology [address] [place] [address] Scheduled Orders Name Type Priority Associated Diagnoses Orde r Schedule MAMMOGRAM SCREENING NICKY BILATERAL Medical Imaging Routine Screening mammogram for high-risk patient Expected: 05/15/2023, Expires: 06/12/2024 Scheduled Procedures Name Priority Associated Diagnoses Date/Ti me COLONOSCOPY FLEXIBLE PROXIMA L DIAGNOSTIC Recall Special screening for malignant neoplasms, colon Health Maintenance Due Date Last Done Comments HIV Screening 1973 Cologuard 2003 Fecal Occult Blood Test 2003 Sigmoidoscopy 2003 DTaP,Tdap,and Td Vaccines (1 - Tdap) 04/12/2007 04/11/2007 Pneumococcal Vaccine: Pediatrics (0 to 5 Years) and At-Risk Patients (6 to 64 Years) (2 - PCV) 04/11/2008 04/11/2007 Zoster Vaccines (1 of 2) 2008 Mammogram 12/12/2019 12/11/2018, 11/09, 11/08/2016, Additional history exists Depression Screening 02/22/2021 02/23/2020 COVID-19 Vaccine (3 - season) 2022 06/23/2020, 05/26/2020 Influenza Vaccine (FLU shot) (#1) 2022 12/31/2019, 03/09/2014 Colonoscopy 09/25/2023 09/24/2013, 09/24/2013 Colorectal Cancer Screening 09/25/2023 Lipid Panel 06/02/2025 06/02/2020, 0804/2018, 11/07/2016, Additional history exists GARDASIL-HPV IMMUNIZATION SERIES Aged Out No longer eligible based on patient's age to complete this topic Hepatitis B Aged Out No longer eligi ble based on patient's age to complete this topic MENINGOCOCCAL (MENACTRA/MENVEO) Aged Out No longer eligible based on patient's age to complete this topic documented as of this encounter Medical Devices Not on filedocumented as of this encounter Visit Diagnoses Diagnosis Screening mammogram for high-risk patient- Primary documented in this encounter
[2023-08-23] MEDS: ALBUT/IPRATROP 3MG/0.5MG NEB 3 ML VIAL NEB PRN (03:48)
[2023-08-23 08:08] LABS: Albumin Level 3.7 gm/dl (3.4-5.0); BUN Creatinine Ratio 10.1 (10-20); Calcium 8.7 mg/dl (8.6-10.3); Creatinine Clr Calc Pharmacy 71.3 ml/min; Est GFR (African American) 105.9 ml/min; Est GFR (Non-African American) 91.4 ml/min; Magnesium 1.7 mg/dl (1.7-2.4); Phosphorus 3.4 mg/dl (2.5-4.9); Potassium 3.8 mmol/L (3.5-5.1)
--- NOTE | 2023-08-23 10:20 | Hospitalist Progress Note ---
Date of Service August 23, 2023 Assessment & Plan (1) Infarction of kidney: (2) CAD (coronary artery disease): (3) COPD (chronic obstructive pulmonary disease): (4) History of non-ST elevation myocardial infarction (NSTEMI): (5) Bipolar disorder: (6) Anxiety with depression: (7) Asthma: (8) Tobacco use: Plan Infarcts of left upper and middle renal pole: CT scan abdomen and pelvis with contrast significant for wedge-shaped hypodensities in upper and mid poles of left kidney, suggestive of renal infarct. US aorta without abnormality Renal artery duplex US with diminished flow in left kidney superior pole, no renal artery stenosis noted. Continue Eliquis 10 mg p.o. twice daily for 1 week, then 5 mg p.o. twice daily x 6 months, then remain on aspirin indefinitely, or consider change to clopidogrel since infarcts happened on ASA Continue atorvastatin 40 mg daily TTE without evidence of cardiac emboli No sign of atrial fibrillation on telemetry Hypercoagulability labs pending Urology consulted, appreciate recs: - No acute intervention at this time, noted possibility of renal mass in left kidney, this will need updated imaging on outpatient follow up Continue pain control: - Acetaminophen 1 g IV every 8 hours as needed for mild pain or fever - Prn morphine switched to Oxycodone 5mg Q4H prn for pain control PRN Zofran for nausea CAD/hypertension/history of AL Former smoker, tobacco cessation following AL Continue aspirin and metoprolol succinate Started on Atorvastatin COPD: - Continue scheduled respiratory meds, encouraged use of prn nebulizer treatment - Supplemental O2 as needed Bipolar disorder/anxiety with depression- Continue alprazolam, citalopram Dispo: PCU/Tele VTE ppx: Eliquis FEN/GI: Admission and Anticipated Discharge Date Admission Date: August 22, 2023 Supervising Physician Co-Signing Physician Notes I personally examined the patient and verified metcalf points of history and exam, discussed case, and agree with decision making and plan documented by Dr. Tamayo. Patient appears comfortable, lungs with diffuse inspiratory and expiratory wheezing, no rhonchi or decreased breath sounds, regular rate and rhythm, no acute distress. Vital signs have been stable. Patient denies any bleeding with eliquis. Hypercoagulation labs pending. Will start po oxycodone instead of iv morphine for pain control. Patient has uncontrolled asthma but is reluctant to use controller due to intolerance in past, continue duonebs. Will need outpatient workup for left renal mass. Anticipate discharge home tomorrow. Subjective Patient evaluated at bedside this morning, notes that she has had ongoing, constant pain in left flank region, significant alleviation with morphine but otherwise 10/10. Also notes significant nausea overnight, thinks this was due to heavy dinner. +SOB with small amount of ambulation, notes nebulizer treatment was very helpful. Apart from this, denies fever/chills, dysuria, chest pain. 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 Review of Systems Review of Systems: as per HPI Physical Exam Physical Exam: General: Alert and oriented. No acute distress Cardiac: Regular rate and rhythm, no murmurs appreciated Respiratory: Lungs with notable wheezes bilaterally, good respiratory effort, no conversational dyspnea appreciated Abdominal: +left flank TTP. Bowel sounds present. Extremities: No lower extremity edema Results & Data Results & Data Vital Signs (Past 12 Hours) Vital Signs Temp Pulse Pulse Resp BP Pulse Ox Pulse Ox 08/23/23 07:35 36.9 C 69 17 152/74 H 95 08/23/23 07:28 65 08/23/23 07:04 68 16 95 08/23/23 05:00 99 08/23/23 03:49 78 22 94 08/23/23 03:41 37.8 C H 80 18 150/67 H 92 08/23/23 00:58 63 08/22/23 23:25 36.6 C 70 18 150/65 H 91 O2 Del Method O2 Del Method O2 Flow Rate O2 Flow Rate 08/23/23 07:35 Nasal Cannula 1.0 08/23/23 07:28 08/23/23 07:04 Nasal Cannula 1 08/23/23 05:00 Nasal Cannula 2 08/23/23 03:49 Nasal Cannula 1 08/23/23 03:41 Nasal Cannula 2 08/23/23 00:58 08/22/23 23:25 Room Air Resident Activity Tracking Resident Involvement: Resident Care Provided Care Provided: Adult Hospital Medicine
[2023-08-23] MEDS: ONDANSETRON INJ 2 MG/ML 2 ML VIAL IV PRN (11:41)
[2023-08-23] MEDS: oxyCODONE HCL IR 5 MG TAB (IMMEDIATE RELEASE) PO PRN (14:41)
[2023-08-23] MEDS: POLYETHYLENE (MIRALAX) 17 GM PACK PO SCH (17:45)
[2023-08-23] MEDS: ACETAMINOPHEN 500 MG TAB PO SCH (17:45)
[2023-08-24 07:35] LABS: Albumin Level 3.6 gm/dl (3.4-5.0); BUN Creatinine Ratio 10.4 (10-20); Calcium 9.2 mg/dl (8.6-10.3); Creatinine Clr Calc Pharmacy 72.9 ml/min; Est GFR (African American) 106.9 ml/min; Est GFR (Non-African American) 92.2 ml/min; Magnesium 1.9 mg/dl (1.7-2.4)
[2023-08-24] MEDS: SENNA 8.6 MG TAB PO SCH (10:26)
[2023-08-24] MEDS ORDERED: POLYETHYLENE (MIRALAX) 17 GM PACK PO PRN (10:31)
--- NOTE | 2023-08-24 10:33 | Discharge Summary ---
Date of Service August 24, 2023 Admission HPI Per Admitting Provider The patient is a 63-year-old female with a past medical history including obesity, CAD, history of tobacco use, COPD, history of NSTEMI, GERD, bipolar disorder, anxiety with depression and asthma. She presents to the emergency department with symptoms as noted above. CT scan of abdomen pelvis reveals renal infarct in the left upper and left mid poles, and is being admitted for further workup Admission Exam Per Admitting Provider The patient is awake, alert and oriented 3, well developed and well nourished, normocephalic and atraumatic, lying in bed and in mild distress secondary to abdominal pain HEENT--PERRL, EOMI, mucous membranes and oropharynx dry. Neck--supple. No JVD. No bruits. Thyroid normal, trachea midline, no adenopathy. Heart--normal S1 and S2. No murmurs, rubs or gallops. Lungs--clear bilaterally, no respiratory distress, no accessory muscle use. Abdomen--normal bowel sounds and soft. Nontender. Nondistended, no hernias or masses, no organomegaly. Extremities--no cyanosis or clubbing. No edema. Dermatologic--normal skin turgor, normal color, no abnormal lymph nodes, no rash. Neurologic--cranial nerves II through XII grossly intact. Rheumatologic--normal range of motion. Psychiatric--normal affect. Principal Diagnosis Left renal infarct Discharge Exam General: Alert and oriented. No acute distress Cardiac: Regular rate and rhythm, no murmurs appreciated Respiratory: Lungs with mild wheezes bilaterally, good respiratory effort, no conversational dyspnea appreciated Abdominal: +left flank TTP. Bowel sounds present. Extremities: No lower extremity edema Discharge Data Allergies Allergy/AdvReac Type Severity Reaction Status Date / Time umeclidinium AdvReac Intermediate Vomiting Verified 08/21/23 22:10 [From Anoro Ellipta] vilanterol AdvReac Intermediate Vomiting Verified 08/21/23 22:10 [From Anoro Ellipta] Consultations 08/22/23 00:51 ED Decision to Admit Stat 08/22/23 02:47 Consult Urology Routine Ordered Studies 08/21/23 22:26 CT Abd and Pelvis [CT abd pelvis IV con only] Stat 08/22/23 01:31 US Aorta Doppler [US duplex aorta/iliacs/IVC ltd] Stat US duplex renal artery Stat Hospital Course (1) Infarction of kidney: (2) CAD (coronary artery disease): (3) COPD (chronic obstructive pulmonary disease): (4) History of non-ST elevation myocardial infarction (NSTEMI): (5) Bipolar disorder: (6) Anxiety with depression: (7) Asthma: (8) Tobacco use: Plan 63-year-old female with a past medical history including obesity, CAD, history of tobacco use, COPD, history of NSTEMI, GERD, bipolar disorder, anxiety with depression and asthma presented with left flank pain: Infarcts of left upper and middle renal pole: CT scan abdomen and pelvis with contrast significant for wedge-shaped hypodensities in upper and mid poles of left kidney, consistent with renal infarct. US aorta without abnormality Renal artery duplex US with diminished flow in left kidney superior pole, no renal artery stenosis noted. Patient started on Eliquis, continue Eliquis 10 mg p.o. twice daily through 08/28/23, then 5 mg p.o. twice daily x 6 months, then remain on aspirin indefinitely vs consider change to clopidogrel as infarcts happened while on ASA Started on statin, continue atorvastatin 40 mg daily TTE without evidence of cardiac source for emboli No sign of atrial fibrillation on telemetry Hypercoagulability labs pending, follow up on results in the outpatient setting Urology consulted: - No acute intervention recommended, noted possibility of renal mass in left kidney, this will need updated imaging on outpatient follow up - Follow up with outpatient urology Continue pain control: - Recommend scheduled Tylenol + prn Oxycodone - Recommend bowel regimen while on oxycodone Continue to advance diet, PRN Zofran for nausea CAD/hypertension/history of FL Former smoker, tobacco cessation following [place] Continue aspirin and metoprolol succinate Started on Atorvastatin COPD: - Continue home inhaler regimen Bipolar disorder/anxiety with depression- Continue alprazolam, citalopram Total Time Total Time Spent Total Time Spent (In Minutes): see attending attestation Discharge Plan Discharge Items Patient Disposition: Home - Self-Care Reason For Visit: LEFT RENAL INFARCTS Discharge Diagnosis: Left renal infarct Condition on Discharge: Good Activity: Resume your previous activity Non-emergency contact: Primary Care Provider and Urologist Call non-emergency contact if: you have any medication questions, your symptoms worsen and your pain is not controlled Follow-up/Referrals: Mohit Salgado CRNP [Primary Care Provider] - 09/11/23 9:20 am (with Dr. Godinez. ) Diet: Heart Healthy Addtl Attending Provider Instructions: You were admitted to the hospital because of an infarct in your left kidney. You were seen by urology, who did not see the need for acute intervention. You were started on a blood thinner called Aníbal to address this. Additionally, our case management team will help refer you to outpatient urology - as discussed, they recommend repeating imaging in the future. Following discharge, we will send a prescription for oxycodone to help with pain control. Opioids such as oxycodone can cause significant constipation - we recommend taking a stool softener such as Miralax while taking oxycodone. You can start with one capful dissolved in liquid daily - titrate up as needed until you are having soft, regular bowel movements. We also sent some Zofran to your pharmacy - you can take this as needed for nausea. Additionally, we recommend starting with small, light meals with progression of diet as tolerated. A discharge summary will be sent to your primary care physician to ensure continuity of care. Please bring this discharge summary with you to your next office appointment so that your provider can review it at that time. Medications: Your medication list has been reviewed and reconciled upon discharge to ensure accuracy and continuity of care. An updated list of all your medications is included with your hospital discharge paperwork. Please review this list closely and make note of any changes to your medications. New Medications: Eliquis: Please take 10mg (2 tabs) twice daily through 08/27, with next dose tonight. Then take 5mg (1 tab) twice daily thereafter. Atorvastatin: Please take 1 tab daily Zofran: Please take 1 oral dissolving tab up to three times per day as needed for nausea/vomiting Oxycodone: Please take 1 tab up to four times daily as needed for pain Follow up appointments: - Make a follow up appointment with your PCP within the next week. It is very important that you follow up with them shortly after discharge from the hospit al. - Keep all of your follow up appointments as already scheduled. If you cannot make an appointment, notify your provider. CONTACT YOUR PRIMARY CARE PROVIDER if you experience any of the following: - Difficulty following your treatment plan - Difficulty taking any of your medications CALL 911 OR GO TO THE EMERGENCY DEPARTMENT if you experience any of the following: - Sudden, severe abdominal pain or nausea/vomiting - Severe chest pain or chest pain that radiates to your jaw or arm - Sudden, severe shortness of breath or difficulty breathing Pending Studies at Discharge: No Stand-Alone Forms: My [facility], Smoking Cessation Medications and DC Order Prescriptions: New Eliquis 5 mg Tablet 10 mg PO BID Qty: 11 0RF Eliquis 5 mg Tablet 5 mg PO BID 30 Days Qty: 60 0RF atorvastatin 40 mg Tablet 40 mg PO QAM 30 Days Qty: 30 0RF ondansetron 4 mg tablet,disintegrating 4 mg PO Q8H PRN (Reason: nausea and vomiting) 4 Days Qty: 14 0RF oxycodone 5 mg tablet 5 mg PO Q6H PRN (Reason: pain) 5 Days Qty: 20 0RF Continued citalopram 40 mg tablet 40 mg PO QAM Qty: 90 1RF furosemide 20 mg tablet 20 mg PO .COMPLEX Qty: 90 1RF Rx Instructions: 20 mg PO Take 1 tablet every other day alternating with 2 tablets every other day; alprazolam 0.5 mg tablet 0.5 mg PO BID Qty: 45 0RF latanoprost 0.005 % drops 1 drp ophthalmic (eye) .COMPLEX Qty: 7.5 0RF Rx Instructions: 1 drp ophthalmic (eye) Instill 1 drop in each eye in the PM; cholecalciferol (vitamin D3) 25 mcg (1,000 unit) tablet 100 mcg PO QAM Rx Instructions: 2000units metoprolol succinate 25 mg tablet extended release 24 hr 25 mg PO QAM Combivent Respimat 20-100 mcg/actuation mist 2 puff INHALATION BID cyanocobalamin (vitamin B-12) [Vitamin B-12] 1,000 mcg Tablet 1,000 mcg PO QAM aspirin [Aspirin Childrens] 81 mg Tablet,Chewable 81 mg PO QAM albuterol sulfate 90 mcg/actuation HFA aerosol inhaler 1 inh inhalation QID Discharge Orders: Discharge Order (Routine); Ordered 08/24/23 Ordered By: Mele Tamayo Admission Data Admit Date/Time: 08/22/23 02:02 Attending Provider: Damien Pike Admit Provider: Jose Baptiste Primary Care Provider: Mohit Salgado Other Providers: Jose Baptiste; Moris Merlos Other Interventions: Discharge Summary Assessment (RN) Last Done: 08/24/23 12:56 Supervising Physician Co-Signing Physician Notes Attending attestation Pt seen and examined in concert with Dr. Tamayo. In agreement with the documented findings as noted in the resident documentation with any exceptions or additions as noted here. Reports considerable improvement in nausea, bloating following admin of ondansetron and pain very well controlled on present regimen. On examination, S1/S2 nl RRR no MCG. CTAB. Abd NT/ND BS+ve, some dullness to percussion LLQ c/w constipation Renal infarct, left - urology consult - continue pain control with oxycodone PO q6h PRN and scheduled APAP. Follow up in outpatient for concern of left renal mass evaluation Constipation - in the setting of opioid pain medication, abd pain - strongly encourage adherence to bowel regimen including miralax and colace with precautions for worsening sx CAD w/ h/o FL, HTN - continue ASA, metoprolol. Added atorvastatin therapy. COPD - lungs clear on day of discharge and without c/o SOB at time of examination. Continue routine care. Else see resident documentation as noted. Total attending physician time spent with this patient's care on the day of discharge: 35 minutes. Resident Activity Tracking Resident Involvement: Resident Care Provided Care Provided: Adult Hospital Medicine
[2023-08-27 17:18] LABS: Anti Cardiolipin Ab IgG <2.0 GPL-U/mL; Anti Cardiolipin Ab IgM 6.4 MPL-U/mL; Anti-Thrombin III Activity 116 % normal (80-135); Protein S Functional(Activity) 72 % normal (60-140)
[2023-08-29] MEDS ORDERED: APIXABAN 5 MG TABLET PO SCH (09:00)
== END 2023-08-24 14:24 | disposition home or self-care (01) | DRG 700 ==
LOC: ED 20:21 → EDINP 08-22 02:02 → SUATTDRO 08-22 02:02 → EDINP 08-22 10:48 → 2S 08-22 11:44

== ENCOUNTER 2024-01-05 20:58 | Inpatient (IN) ==
[2024-01-05] MEDS ORDERED: METOPROLOL TARTRATE 1 MG/ML VIAL IV PRN (21:11)
[2024-01-05] MEDS: FUROSEMIDE 40 MG/4 ML VIAL IV STA (21:21)
[2024-01-05] MEDS: NITROGLYCERIN 2% OINTMENT 30GM TUBE EXT ONE (21:23)
[2024-01-05 21:43] LABS: Basophils # (auto) 0.09 K/uL (0.00-0.20); Basophils % (auto) 0.7 %; Eosinophils # (auto) 0.13 K/uL (0.00-0.50); Hematocrit (blood only) 36.7 % (37.0-47.0); Hemoglobin 12.2 g/dl (12.0-16.0); Immature Granulocytes # (auto) 0.08 K/uL (0.01-0.20); Immature Granulocytes % (auto) 0.6 %; Lymphocytes # (auto) 1.97 K/uL (1.20-3.40); Lymphocytes % (auto) 14.8 %; Mean Corpuscular Hemoglobin 35.2 pg (25.0-34.0); Mean Corpuscular Hgb Conc 33.2 g/dL (32.0-36.0); Mean Corpuscular Volume 105.8 fL (80.0-100.0); Mean Platelet Volume 10.7 fL (9.4-12.4); Monocytes # (auto) 0.64 K/uL (0.11-0.59); Monocytes % (auto) 4.8 %; Neutrophils % (auto) 78.1 %; Nucleated RBC # (auto) 0.02 K/uL (0.00-0.12); Nucleated RBC % (auto) 0.2 %; Platelet Count 275 K/uL (130-400); RDW Coefficient of Variation 14.5 % (11.5-14.5); RDW Standard Deviation 56.7 fL (36.4-46.3); Red Blood Count 3.47 M/uL (4.20-5.40); White Blood Count 13.31 K/ul (4.8-10.8)
[2024-01-05 22:02] LABS: Albumin Globulin Ratio 1.5 (0.9-2); Albumin Level 4.4 gm/dl (3.4-5.0); BUN Creatinine Ratio 9.5 (10-20); Bilirubin,Total 0.5 mg/dl (0.2-1.0); Creatinine Clr Calc Pharmacy 69.7 ml/min; Est GFR (African American) 98.5 ml/min; Globulin 2.9 gm/dl (2.5-4.0); Magnesium 1.8 mg/dl (1.7-2.4); Potassium 3.9 mmol/L (3.5-5.1); Total Protein 7.3 gm/dl (6.0-8.3)
--- NOTE | 2024-01-05 22:15 | XRay Report ---
SINGLE VIEW CHEST CLINICAL HISTORY: Dyspnea FINDINGS: An AP, portable, upright chest radiograph is compared to chest x-ray and chest CT dated 12/08. The heart is enlarged noting atherosclerotic calcification of the thoracic aorta. Diffuse int erstitial thickening likely represents fluid overload/congestive change. Mild atelectasis is noted at the lung bases. No airspace consolidation or large pleural effusion is identified. No pneumothorax i s seen. The skeletal structures are osteopenic. The bony thorax is grossly intact. IMPRESSION: Cardiomegaly with evidence of fluid overload/congestive change. Clinical correlation will be required and radiographic follow-up to resolution is recommended. ACT 112: Negative or not required by law. Electronically signed by: Ankur Mercado M.D. 01/05/2024 10:13 PM
--- NOTE | 2024-01-05 22:25 | History & Physical Report ---
Date of Service January 05, 2024 Assessment & Plan (1) Acute respiratory failure with hypoxia: (2) CHF exacerbation: (3) COPD exacerbation: (4) Sinus tachycardia: (5) Elevated troponin: (6) CAD (coronary artery disease): (7) History of non-ST elevation myocardial infarction (NSTEMI): (8) GERD (gastroesophageal reflux disease): (9) Bipolar disorder: (10) Anxiety with depression: (11) Infarction of kidney: Plan Acute respiratory failure with hypoxia/CHF exacerbation/COPD exacerbation- Presently on BiPAP, taper to nasal cannula oxygen as symptoms improve CHF exacerbation/elevated troponin/sinus tachycardia/CAD/history of NSTEMI/aortic regurgitation- The patient will be admitted to telemetry for serial cardiac enzymes, serial EKG's, cardiac rhythm monitoring Most recent echocardiogram on 08/22/2023 with ejection fraction 55-60%, and mild to moderate aortic regurgitation She is status post furosemide 40 mg IV from the ED. Additional dosing as needed pending response and blood pressure Nitropaste 1 inch had been placed on, but was removed due to low normal systolic blood pressure in the low 100s Initial troponin 100.7, with follow-up pending Resume metoprolol succinate 25 mg every morning in the a.m. Continue aspirin COPD exacerbation- Give Solu-Medrol 125 mg IV now, and then 40 mg IV every 8 hours Tachycardia at this time limits nebulizer treatment Xopenex/Atrovent nebulizers every 4 hours as needed Bipolar disorder/anxiety with depression- Give a dose of lorazepam 0.5 mg IV now, then resume alprazolam 0.5 mg p.o. twice daily starting in the a.m. Continue citalopram 40 mg every morning Renal Infarct hx- Continue apixaban History of Present Illness Chief Complaint: The patient presents to the emergency department with acute onset of shortness of breath and palpitations that began around 1 PM this afternoon Primary Care Provider: AUDREY Aranda The patient is a 63-year-old female with a past medical history including left renal mass, renal infarct, CAD, glaucoma, COPD, chronic anemia, history of NSTEMI, GERD, bipolar disorder, anxiety with depression and asthma. She pres ents to the emergency department with complaint of acute onset of shortness of breath that began around 1 PM this afternoon. She was in her usual state of health until that time. She denies any recent travels or sick exposures. Since the onset of the symptoms, she has now developed some generalized fatigue. Allergies Allergy/AdvReac Type Severity Reaction Status Date / Time umeclidinium AdvReac Intermediate Vomiting Verified 11/15/23 13:33 [From Anoro Ellipta] vilanterol AdvReac Intermediate Vomiting Verified 11/15/23 13:33 [From Anoro Ellipta] Home Medications Medication Instructions Recorded Confirmed Type latanoprost 0.005 % eye drops 1 drp ophthalmic (eye) .COMPLEX 11/24/22 01/05/24 Rx #7.5 mL cholecalciferol (vitamin D3) 25 100 mcg PO QAM 01/17/23 01/05/24 History mcg (1,000 unit) tablet albuterol sulfate 90 mcg/actuation 1 inh inhalation QID shortness of 08/21/23 01/05/24 History aerosol inhaler breath or wheezing aspirin 81 mg chewable tablet 81 mg PO QAM 08/21/23 01/05/24 History (Aspirin Childrens) cyanocobalamin (vitamin B-12) 1,000 mcg PO QAM 08/21/23 01/05/24 History 1,000 mcg tablet (Vitamin B-12) ipratropium 20 mcg-albuterol 100 2 puff inhalation BID 08/21/23 01/05/24 History mcg/actuation mist for inhalation (Combivent Respimat) apixaban 5 mg tablet (Eliquis) 10 mg (2 x 5 mg) PO BID 30 days 09/20/23 01/05/24 Rx #120 tabs atorvastatin 40 mg tablet 40 mg PO QAM 90 days #90 tabs 10/02/23 01/05/24 Rx furosemide 20 mg tablet 20 mg PO .COMPLEX #90 tabs 10/22/23 01/05/24 Rx citalopram 40 mg tablet 40 mg PO QAM #90 tabs 11/05/23 01/05/24 Rx alprazolam 0.5 mg tablet 0.5 mg PO BID #45 tabs 12/11/23 01/05/24 Rx metoprolol succinate 25 mg 25 mg PO QAM #90 tabs 12/11/23 01/05/24 Rx tablet,extended release 24 hr Past Med/Surg History Problem List (Updated 01/05/24 @ 22:41 by Jose Baptiste MD) Elevated troponin Sinus tachycardia COPD exacerbation CHF exacerbation Acute respiratory failure with hypoxia Left renal mass Infarction of kidney (Acute) Obesity CAD (coronary artery disease) Bilateral cataracts Removal scheduled 01/19/21 Glaucoma (Chronic) COPD (chronic obstructive pulmonary disease) (Chronic) Alcohol use Chronic anemia (Chronic) History of non-ST elevation myocardial infarction (NSTEMI) (Chronic) 2016>NO CARDS NOW GERD (gastroesophageal reflux disease) (Chronic) Bipolar disorder (Chronic) Anxiety with depression (Chronic) Asthma (Chronic) Medical History Tobacco use Skin tag of labia Surgical History History of section History of hysterectomy History of colonoscopy History of tooth extraction History of tonsillectomy History of cataract surgery History of cardiac cath Family History Brother Prostate cancer Father Myocardial infarction Other No family history of adverse response to anesthesia Denies family history of Family hx of colon cancer Ovarian cancer Breast cancer Colorectal cancer Social History Smoking Status: Former smoker Tobacco Type: Cigarettes Age Quit Using Tobacco: 52; Second Hand Exposure: No; Do You Dip or Chew Tobacco: No; Hx Alcohol Use: Yes Alcohol type: beer Hx Substance Use: No Preferred Language: Armenian Communication Ability: Effective Visual Impairment: No Limitations Hearing Ability: Normal Repair Department Manager Required: No Beliefs That Will Affect Care: None marital status: / Current Living Situation: Alone current occupational status: disabled How many Children do You have: 1 Feels Safe at Home: Yes Childhood Exposure to Second-Hand Smoke: No Diet: regular Diet Comment: regular caffeine: Yes during the past year weight has: remained stable Dental Care, Regularly: No Physical Activity Frequency: Daily Seatbelt Use: always Sunscreen Use: Yes Assistive Devices: None Review of Systems Review of Systems: The patient denies chest pain, cough, lower extremity swelling, sore throat, fevers, chills, sweats, nausea, vomiting, diarrhea , constipation, abdominal pain, pelvic pain, blood in urine or stool, dysuria, urinary frequency or urgency, lightheadedness, dizziness, headache, memory loss, loss of consciousness, rash, abnormal bruising or bleeding, imbalance, focal weakness, numbness or tingling in arms or legs, generalized arthralgias or myalgias, back or neck pain, or night sweats. The review of systems is otherwise negative other than for that already noted above, and at least 10 systems have been reviewed. Physical Exam Physical Exam: The patient is awake, alert and oriented 3, well developed and well nourished, normocephalic and atraumatic, lying in bed and in mild respiratory distress wearing BiPAP HEENT--PERRL, EOMI, mucous membranes and oropharynx dry. Neck--supple. No JVD. No bruits. Thyroid normal, trachea midline, no adenopathy. Heart-- tachycardic and regular. No murmurs, rubs or gallops. Lungs--inspiratory expiratory wheezing, right greater than left. Abdomen--normal bowel sounds and soft. Nontender. Nondistended, no hernias or masses, no organomegaly. Extremities-- No edema. There are good distal pulses b/l. Dermatologic--normal skin turgor, normal color, no abnormal lymph nodes, no rash. Neurologic--cranial nerves II through XII grossly intact. Rheumatologic--normal range of motion. Psychiatric-- mildly anxious Results & Data Results & Data Vital Signs (Past 12 Hours) Vital Signs Temp Pulse Pulse Resp BP BP Pulse Ox 01/05/24 22:06 92 01/05/24 22:00 116 H 22 126/74 93 01/05/24 21:51 132 H 18 102/76 98 01/05/24 21:44 98 01/05/24 21:30 113 H 26 H 99/78 L 97 01/05/24 21:19 110 H 28 H 116/90 94 01/05/24 21:11 01/05/24 20:55 36.6 C 129 H 32 H 177/123 H 97 O2 Del Method O2 Flow Rate 01/05/24 22:06 Nasal Cannula 3 01/05/24 22:00 Nasal Cannula 3 01/05/24 21:51 BiPAP 01/05/24 21:44 BiPAP 01/05/24 21:30 BiPAP 01/05/24 21:19 BiPAP 01/05/24 21:11 BiPAP 01/05/24 20:55 Non-rebreather Laboratory Results Laboratory Results WBC 13.31 K/ul (4.8-10.8) H 01/05/24 21:05 RBC 3.47 M/uL (4.20-5.40) L 01/05/24 21:05 Hgb 12.2 g/dl (12.0-16.0) 01/05/24 21:05 Hct 36.7 % (37.0-47.0) L 01/05/24 21:05 MCV 105.8 fL (80.0-100.0) H 01/05/24 21:05 MCH 35.2 pg (25.0-34.0) H 01/05/24 21:05 MCHC 33.2 g/dL (32.0-36.0) 01/05/24 21:05 RDW Std Deviation 56.7 fL (36.4-46.3) H 01/05/24 21:05 RDW Coeff of Adrián 14.5 % (11.5-14.5) 01/05/24 21:05 Plt Count 275 K/uL (130-400) 01/05/24 21:05 MPV 10.7 fL (9.4-12.4) 01/05/24 21:05 Immature Gran % (Auto) 0.6 % 01/05/24 21:05 Neut % (Auto) 78.1 % 01/05/24 21:05 Lymph % (Auto) 14.8 % 01/05/24 21:05 [place] % (Auto) 4.8 % 01/05/24 21:05 Eos % (Auto) 1.0 % 01/05/24 21:05 Baso % (Auto) 0.7 % 01/05/24 21:05 Neut # (Auto) 10.40 K/uL (1.40-6.50) H 01/05/24 21:05 Lymph # (Auto) 1.97 K/uL (1.20-3.40) 01/05/24 21:05 [place] # (Auto) 0.64 K/uL (0.11-0.59) H 01/05/24 21:05 Eos # (Auto) 0.13 K/uL (0.00-0.50) 01/05/24 21:05 Baso # (Auto) 0.09 K/uL (0.00-0.20) 01/05/24 21:05 Immature Gran # (Auto) 0.08 K/uL (0.01-0.20) 01/05/24 21:05 Absolute Nucleated RBC 0.02 K/uL (0.00-0.12) 01/05/24 21:05 Nucleated RBC % (auto) 0.2 % 01/05/24 21:05 Sodium 137 mmol/L (136-145) 01/05/24 21:05 Potassium 3.9 mmol/L (3.5-5.1) 01/05/24 21:05 Chloride 101 mmol/L (98-107) 01/05/24 21:05 Carbon Dioxide 29 mmol/L (21-32) 01/05/24 21:05 Anion Gap 7 (3-11) 01/05/24 21:05 BUN 7 mg/dl (6-23) 01/05/24 21:05 Creatinine 0.74 mg/dl (0.6-1.2) 01/05/24 21:05 Est Cr Clr Drug Dosing 69.7 ml/min 01/05/24 21:05 Est GFR ( Amer) 98.5 ml/min 01/05/24 21:05 Est GFR (Non-Af Amer) 85.0 ml/min 01/05/24 21:05 BUN/Creatinine Ratio 9.5 (10-20) L 01/05/24 21:05 Glucose 236 mg/dl (70-99(Fasting)) H 01/05/24 21:05 POC Glucose 132 mg/dl (70-99) H 01/05/24 22:35 Calcium 9.0 mg/dl (8.6-10.3) 01/05/24 21:05 Magnesium 1.8 mg/dl (1.7-2.4) 01/05/24 21:05 Total Bilirubin 0.5 mg/dl (0.2-1.0) 01/05/24 21:05 AST 34 U/L (13-39) 01/05/24 21:05 ALT 37 U/L (7-52) 01/05/24 21:05 Alkaline Phosphatase 73 U/L (34-104) 01/05/24 21:05 Troponin I High Sens 100.7 pg/ml (0-14) H* 01/05/24 21:05 B-Natriuretic Peptide 746 pg/ml (0-100) H 01/05/24 21:05 Total Protein 7.3 gm/dl (6.0-8.3) 01/05/24 21:05 Albumin 4.4 gm/dl (3.4-5.0) 01/05/24 21:05 Globulin 2.9 gm/dl (2.5-4.0) 01/05/24 21:05 Albumin/Globulin Ratio 1.5 (0.9-2) 01/05/24 21:05 Adenovirus (PCR) Not Detected (NotDetected) 01/05/24 21:14 B. pertussis DNA (PCR) Not Detected (NotDetected) 01/05/24 21:14 B.parapertussis DNA PCR Not Detected (NotDetected) 01/05/24 21:14 C. pneumoniae DNA (PCR) Not Detected (NotDetected) 01/05/24 21:14 Coronavirus OC43 (PCR) Not Detected (NotDetected) 01/05/24 21:14 Coronavirus HKU1 (PCR) Not Detected (NotDetected) 01/05/24 21:14 Coronavirus 229E (PCR) Not Detected (NotDetected) 01/05/24 21:14 SARS-CoV-2 (PCR) Not Detected (NotDetected) 01/05/24 21:14 Coronavirus NL63 (PCR) Not Detected (NotDetected) 01/05/24 21:14 Human Metapneumovir PCR Not Detected (NotDetected) 01/05/24 21:14 Influenza Type A (PCR) Not Detected (NotDetected) 01/05/24 21:14 Influenza Type B (PCR) Not Detected (NotDetected) 01/05/24 21:14 M. pneumoniae (PCR) Not Detected (NotDetected) 01/05/24 21:14 Parainfluenza 1 (PCR) Not Detected (NotDetected) 01/05/24 21:14 Parainfluenza 2 (PCR) Not Detected (NotDetected) 01/05/24 21:14 Parainfluenza 3 (PCR) Not Detected (NotDetected) 01/05/24 21:14 Parainfluenza 4 (PCR) Not Detected (NotDetected) 01/05/24 21:14 RSV (PCR) Not Detected (NotDetected) 01/05/24 21:14 Entero/Rhino (PCR) Not Detected (NotDetected) 01/05/24 21:14 Impressions Chest X-Ray 01/05/24 21:07 SINGLE VIEW CHEST CLINICAL HISTORY: Dyspnea FINDINGS: An AP, portable, upright chest radiograph is compared to chest x-ray and chest CT dated 12/17/2018. The heart is enlarged noting atherosclerotic calcification of the thoracic aorta. Diffuse interstitial thickening likely represents fluid overload/congestive change. Mild atelectasis is noted at the lung bases. No airspace consolidation or large pleural effusion is identified. No pneumothorax is seen. The skeletal structures are osteopenic. The bony thorax is grossly intact. IMPRESSION: Cardiomegaly with evidence of fluid overload/congestive change. Clinical correlation will be required and radiographic follow-up to resolution is recommended. ACT 112: Negative or not required by law. Electronically signed by: Ankur Mercado M.D. 01/05/2024 10:13 PM Code Status & VTE Plan Code Status Full code VTE Prophylaxis Plan VTE Prophylaxis will be ordered: Yes PG Care Time/CCT Total # of Minutes Spent Total Time Spent with Patient: Total time spent is greater than 50% in coordination of care (as documented) at patient's floor/unit and/or counseling patient: Coding Level of Care Code 49431 INT INP/OBS CARE 3/75MIN Diagnoses Acute respiratory failure with hypoxia J96.01 CHF exacerbation I50.9 COPD exacerbation J44.1 Sinus tachycardia R00.0 Elevated troponin R79.89 CAD (coronary artery disease) I25.10 History of non-ST elevation myocardial infarction (NSTEMI) I25.2 GERD (gastroesophageal reflux disease) K21.9 Bipolar disorder F31.9 Anxiety with depression F41.8 Infarction of kidney N28.0
[2024-01-05] MEDS: LORazepam 2 MG/1 ML VIAL IV STA (22:26)
[2024-01-05 22:28] LABS: Troponin I High Sensitivity 100.7 pg/ml (0-14)
[2024-01-05] MEDS: methylPREDNISolone 125 MG/2 ML VIAL IV STA (22:29)
[2024-01-05 22:38] LABS: Adenovirus PCR Not Detected (NotDetected); Bordetella parapertussis PCR Not Detected (NotDetected); Bordetella pertussis PCR Not Detected (NotDetected); Chlamydia pneumoniae PCR Not Detected (NotDetected); Coronavirus 229E PCR Not Detected (NotDetected); Coronavirus CoV-2 (COVID19)PCR Not Detected (NotDetected); Coronavirus HKU1 PCR Not Detected (NotDetected); Coronavirus NL63 PCR Not Detected (NotDetected); Coronavirus OC43PCR Not Detected (NotDetected); Human Metapneumovirus PCR Not Detected (NotDetected); Influenza A PCR Not Detected (NotDetected); Influenza B PCR Not Detected (NotDetected); Mycoplasma pneumoniae PCR Not Detected (NotDetected); Parainfluenza Virus 1 PCR Not Detected (NotDetected); Parainfluenza Virus 2 PCR Not Detected (NotDetected); Parainfluenza Virus 3 PCR Not Detected (NotDetected); Parainfluenza Virus 4 PCR Not Detected (NotDetected); Respiratory Syncytial VirusPCR Not Detected (NotDetected); Rhinovirus/Enterovirus PCR Not Detected (NotDetected)
[2024-01-05] MEDS: APIXABAN 5 MG TABLET PO ONE (22:39)
[2024-01-05] MEDS ORDERED: CARBOHYDRATES FOR HYPOGLYCEMIA PO PRN (23:54)
[2024-01-05] MEDS ORDERED: GLUCOSE 10 TAB/TUBE PO PRN (23:54)
[2024-01-05] MEDS ORDERED: GLUCOSE 40% GEL 15 GM TUBE PO PRN (23:54)
[2024-01-05] MEDS ORDERED: DEXTROSE 50% 50 ML SYRINGE IV PRN (23:54)
[2024-01-05] MEDS ORDERED: ONDANSETRON INJ 2 MG/ML 2 ML VIAL IV PRN (23:54)
[2024-01-05] MEDS ORDERED: GLUCAGON FOR INJ 1 MG VIAL SQ PRN (23:54)
[2024-01-06] MEDS: IPRATROPIUM BROMIDE NEB SOLN 0.02% 0.5MG/2.5ML VIAL NEB PRN (00:06)
[2024-01-06] MEDS: LEVALBUTEROL HCL 0.63 MG/3 ML NEB NEB PRN (00:06)
[2024-01-06] MEDS: LATANOPROST 0.005% OP SOLN 2.5 ML BTL OP SCH (03:34)
[2024-01-06] MEDS: ACETAMINOPHEN 325 MG TAB PO PRN (05:24)
[2024-01-06] MEDS: methylPREDNISolone 40 MG in SYRINGE 0 ML IV SCH (05:25)
[2024-01-06 05:54] LABS: Albumin Level 4.3 gm/dl (3.4-5.0); BUN Creatinine Ratio 14.8 (10-20); Calcium 9.3 mg/dl (8.6-10.3); Creatinine Clr Calc Pharmacy 92.4 ml/min; Est GFR (African American) 114.8 ml/min; Magnesium 1.6 mg/dl (1.7-2.4); Phosphorus 2.4 mg/dl (2.5-4.9); Potassium 3.6 mmol/L (3.5-5.1)
[2024-01-06 06:03] LABS: Troponin I High Sensitivity 197.1 pg/ml (0-14)
[2024-01-06 06:12] LABS: Basophils # (auto) 0.01 K/uL (0.00-0.20); Basophils % (auto) 0.1 %; Hematocrit (blood only) 32.5 % (37.0-47.0); Hemoglobin 11.1 g/dl (12.0-16.0); Immature Granulocytes # (auto) 0.02 K/uL (0.01-0.20); Immature Granulocytes % (auto) 0.3 %; Lymphocytes # (auto) 0.26 K/uL (1.20-3.40); Lymphocytes % (auto) 3.9 %; Mean Corpuscular Hemoglobin 34.8 pg (25.0-34.0); Mean Corpuscular Hgb Conc 34.2 g/dL (32.0-36.0); Mean Corpuscular Volume 101.9 fL (80.0-100.0); Mean Platelet Volume 10.8 fL (9.4-12.4); Monocytes # (auto) 0.11 K/uL (0.11-0.59); Monocytes % (auto) 1.6 %; Neutrophils # (auto) 6.34 K/uL (1.40-6.50); Neutrophils % (auto) 94.1 %; Platelet Count 209 K/uL (130-400); RDW Coefficient of Variation 14.1 % (11.5-14.5); Red Blood Count 3.19 M/uL (4.20-5.40); White Blood Count 6.74 K/ul (4.8-10.8)
[2024-01-06] MEDS ORDERED: methylPREDNISolone 1000 MG/16 ML IV SCH (07:00)
[2024-01-06 07:24] LABS: Estimated Average Glucose 100 mg/dl; Hemoglobin A1C 5.1 % (4.5-5.6)
[2024-01-06] MEDS: INSULIN ASPART PER UNIT CHARGE SC SCH ×2 (08:25→23:45)
[2024-01-06] MEDS: MAGNESIUM SULFATE / D5W 1 GM/100 ML BAG IV SCH (08:26)
[2024-01-06] MEDS: ALPRAZolam 0.5 MG TABLET PO SCH (08:26)
[2024-01-06] MEDS: APIXABAN 5 MG TABLET PO SCH (08:26)
[2024-01-06] MEDS: ATORVASTATIN 40 MG TAB PO SCH (08:27)
[2024-01-06] MEDS: CITALOPRAM 40 MG TAB PO SCH (08:27)
[2024-01-06] MEDS: CHOLECALCIFEROL 25 MCG (1000 UNITS) TAB PO SCH (08:27)
[2024-01-06] MEDS: ASPIRIN 81 MG CHEW PO SCH (08:27)
[2024-01-06] MEDS: METOPROLOL SUCC 25MG EXT REL TAB PO SCH (08:28)
[2024-01-06] MEDS: CYANOCOBALAMIN (B-12) 500 MCG TABLET PO SCH (08:28)
[2024-01-06 09:03] LABS: Thyroid Stimulating Hormone 0.401 uIu/ml (0.300-4.500)
--- NOTE | 2024-01-06 11:01 | Hospitalist Progress Note ---
Date of Service January 06, 2024 Assessment & Plan (1) Acute respiratory failure with hypoxia: (2) CAD (coronary artery disease): (3) Non-ST elevated myocardial infarction (non-STEMI): (4) Paroxysmal atrial fibrillation: (5) COPD exacerbation: (6) Infarction of kidney: Plan 63-year-old female with past medical history of renal infarct, coronary artery disease, glaucoma, COPD, history of tobacco use disorder, who presents to the emergency room with complaints of acute onset of shortness of breath with palpitations and had similar episode few weeks ago which resolved on its own. #Acute hypoxic respiratory failure Likely combination of atrial fibrillation, COPD exacerbation and CHF Patient on 2 L of oxygen via nasal cannula: Wean as tolerated to keep saturation between 89 to 92% #Atrial fibrillation #NSTEMI #Coronary artery disease #Suspected CHF Continue telemetry monitoring Repeat EKG shows sinus rhythm with T wave inversions Troponins elevated and peaked at 261 TSH is 0.401 2D echo Lasix 20 mg IV x 1 dose now I/O monitoring Daily weights Given patient's presentation, suspect NSTEMI Cardiology consulted Patient is already on apixaban 5 mg p.o. twice daily for renal infarct Continue aspirin plus statin plus Toprol-XL 25 mg daily Check fasting lipid profile Await cardiology consult and recommendations #Acute exacerbation of COPD #History of tobacco use disorder Smoking cessation counseling provided Continue Solu-Medrol 40 mg IV 3 times daily Nebulizers Xopenex nebs as needed #History of renal infarct IN 08/2023 Patient is on apixaban 5 mg p.o. twice daily She has outpatient follow-up with supply chain director Dr. Stinson #Anxiety and depression Continue citalopram 40 mg daily Continue Xanax # Hyperglycemia A1c is 5.1 Elevated blood sugars likely secondary to steroids Pharmacy consult for glycemic control CODE STATUS: Full code DVT prophylaxis: Patient on apixaban Care plan discussed with patient, nursing staff Admission and Anticipated Discharge Date Admission Date: January 05, 2024 Subjective Patient seen and examined H&P reviewed Labs and radiology reviewed Patient reports feeling better today compared to yesterday but still feels unwell. Currently denies any chest pain and reports improvement in her shortness of breath Denies nausea, vomiting, diarrhea, abdominal pain Denies any fever or chills Social history: She lives by herself. She does not drive due to glaucoma. She is independent of ADLs. Patient tells me she quit tobacco smoking few months ago when she had a renal infarct and she has been compliant with her apixaban twice a day Review of Systems Review of Systems: As per HPI Physical Exam Physical Exam: General: No acute distress Psych: Awake and alert HEENT: Anicteric sclera, moist oral mucosa CVS: Regular rate and rhythm Lungs: Bilateral air entry with mild expiratory wheezing audible, no use of accessory muscles noted Abdomen: Soft, nontender, no rebound, no guarding Ext: No lower extremity edema, no calf tenderness Neuro: No focal motor deficits noted Results & Data Results & Data Vital Signs (Past 12 Hours) Vital Signs Temp Pulse Pulse Resp BP BP BP 01/06/24 10:28 62 18 01/06/24 08:06 36.7 C 68 18 127/64 01/06/24 08:00 01/06/24 04:09 36.8 C 115 H 19 116/66 01/06/24 00:33 36.8 C 112 H 16 124/85 01/06/24 00:31 20 01/06/24 00:00 01/05/24 23:54 01/05/24 23:18 111 H 21 01/05/24 23:03 105 H 23 106/63 Pulse Ox Pulse Ox O2 Del Method O2 Del Method O2 Flow Rate O2 Flow Rate 01/06/24 10:28 99 Nasal Cannula 3 01/06/24 08:06 97 Nasal Cannula 3 01/06/24 08:00 Nasal Cannula 3 01/06/24 04:09 97 Nasal Cannula 3 01/06/24 00:33 97 Nasal Cannula 3 01/06/24 00:31 98 Nasal Cannula 3 01/06/24 00:00 Nasal Cannula 4 01/05/24 23:54 97 Nasal Cannula 4 01/05/24 23:18 94 Nasal Cannula 3 01/05/24 23:03 93 Nasal Cannula 3 Laboratory Results Laboratory Results - last 24 hr 01/05/24 01/05/24 01/05/24 21:05 21:14 22:35 WBC 13.31 H RBC 3.47 L Hgb 12.2 Hct 36.7 L MCV 105.8 H MCH 35.2 H MCHC 33.2 RDW Std Deviation 56.7 H RDW Coeff of Adrián 14.5 Plt Count 275 MPV 10.7 Immature Gran % (Auto) 0.6 Neut % (Auto) 78.1 Lymph % (Auto) 14.8 Phillips % (Auto) 4.8 Eos % (Auto) 1.0 Baso % (Auto) 0.7 Neut # (Auto) 10.40 H Lymph # (Auto) 1.97 Phillips # (Auto) 0.64 H Eos # (Auto) 0.13 Baso # (Auto) 0.09 Immature Gran # (Auto) 0.08 Absolute Nucleated RBC 0.02 Nucleated RBC % (auto) 0.2 Sodium 137 Potassium 3.9 Chloride 101 Carbon Dioxide 29 Anion Gap 7 BUN 7 Creatinine 0.74 Est Cr Clr Drug Dosing 69.7 Est GFR ( Amer) 98.5 Est GFR (Non-Af Amer) 85.0 BUN/Creatinine Ratio 9.5 L Glucose 236 H POC Glucose 132 H Estimat Average Glucose Hemoglobin A1c Calcium 9.0 Phosphorus Magnesium 1.8 Total Bilirubin 0.5 AST 34 ALT 37 Alkaline Phosphatase 73 Troponin I High Sens 100.7 H* B-Natriuretic Peptide 746 H Total Protein 7.3 Albumin 4.4 Globulin 2.9 Albumin/Globulin Ratio 1.5 TSH Adenovirus (PCR) Not Detected B. pertussis DNA (PCR) Not Detected B.parapertussis DNA PCR Not Detected C. pneumoniae DNA (PCR) Not Detected Coronavirus OC43 (PCR) Not Detected Coronavirus HKU1 (PCR) Not Detected Coronavirus 229E (PCR) Not Detected SARS-CoV-2 (PCR) Not Detected Coronavirus NL63 (PCR) Not Detected Human Metapneumovir PCR Not Detected Influenza Type A (PCR) Not Detected Influenza Type B (PCR) Not Detected M. pneumoniae (PCR) Not Detected Parainfluenza 1 (PCR) Not Detected Parainfluenza 2 (PCR) Not Detected Parainfluenza 3 (PCR) Not Detected Parainfluenza 4 (PCR) Not Detected RSV (PCR) Not Detected Entero/Rhino (PCR) Not Detected 01/06/24 01/06/24 01/06/24 00:44 05:12 07:37 WBC 6.74 RBC 3.19 L Hgb 11.1 L Hct 32.5 L MCV 101.9 H MCH 34.8 H MCHC 34.2 RDW Std Deviation 53.0 H RDW Coeff of Adrián 14.1 Plt Count 209 MPV 10.8 Immature Gran % (Auto) 0.3 Neut % (Auto) 94.1 Lymph % (Auto) 3.9 [place] % (Auto) 1.6 Eos % (Auto) 0.0 Baso % (Auto) 0.1 Neut # (Auto) 6.34 Lymph # (Auto) 0.26 L Phillips # (Auto) 0.11 Eos # (Auto) 0.00 Baso # (Auto) 0.01 Immature Gran # (Auto) 0.02 Absolute Nucleated RBC Nucleated RBC % (auto) Sodium 138 Potassium 3.6 Chloride 99 Carbon Dioxide 31 Anion Gap 8 BUN 8 Creatinine 0.54 L Est Cr Clr Drug Dosing 92.4 Est GFR ( Amer) 114.8 Est GFR (Non-Af Amer) 99.0 BUN/Creatinine Ratio 14.8 Glucose 183 H POC Glucose 210 H Estimat Average Glucose 100 Hemoglobin A1c 5.1 Calcium 9.3 Phosphorus 2.4 L Magnesium 1.6 L Total Bilirubin AST ALT Alkaline Phosphatase Troponin I High Sens 261.6 H* D 197.1 H* D B-Natriuretic Peptide Total Protein Albumin 4.3 Globulin Albumin/Globulin Ratio TSH 0.401 Adenovirus (PCR) B. pertussis DNA (PCR) B.parapertussis DNA PCR C. pneumoniae DNA (PCR) Coronavirus OC43 (PCR) Coronavirus HKU1 (PCR) Coronavirus 229E (PCR) SARS-CoV-2 (PCR) Coronavirus NL63 (PCR) Human Metapneumovir PCR Influenza Type A (PCR) Influenza Type B (PCR) M. pneumoniae (PCR) Parainfluenza 1 (PCR) Parainfluenza 2 (PCR) Parainfluenza 3 (PCR) Parainfluenza 4 (PCR) RSV (PCR) Entero/Rhino (PCR) 01/06/24 01/06/24 10:30 10:52 WBC RBC Hgb Hct MCV MCH MCHC RDW Std Deviation RDW Coeff of Adrián Plt Count MPV Immature Gran % (Auto) Neut % (Auto) Lymph % (Auto) [place] % (Auto) Eos % (Auto) Baso % (Auto) Neut # (Auto) Lymph # (Auto) [place] # (Auto) Eos # (Auto) Baso # (Auto) Immature Gran # (Auto) Absolute Nucleated RBC Nucleated RBC % (auto) Sodium Potassium Chloride Carbon Dioxide Anion Gap BUN Creatinine Est Cr Clr Drug Dosing Est GFR ( Amer) Est GFR (Non-Af Amer) BUN/Creatinine Ratio Glucose POC Glucose 183 H Estimat Average Glucose Hemoglobin A1c Calcium Phosphorus Magnesium Total Bilirubin AST ALT Alkaline Phosphatase Troponin I High Sens Pending B-Natriuretic Peptide Total Protein Albumin Globulin Albumin/Globulin Ratio TSH Adenovirus (PCR) B. pertussis DNA (PCR) B.parapertussis DNA PCR C. pneumoniae DNA (PCR) Coronavirus OC43 (PCR) Coronavirus HKU1 (PCR) Coronavirus 229E (PCR) SARS-CoV-2 (PCR) Coronavirus NL63 (PCR) Human Metapneumovir PCR Influenza Type A (PCR) Influenza Type B (PCR) M. pneumoniae (PCR) Parainfluenza 1 (PCR) Parainfluenza 2 (PCR) Parainfluenza 3 (PCR) Parainfluenza 4 (PCR) RSV (PCR) Entero/Rhino (PCR) Diagnostic Findings Chest X-Ray 01/05/24 21:07 SINGLE VIEW CHEST CLINICAL HISTORY: Dyspnea FINDINGS: An AP, portable, upright chest radiograph is compared to chest x-ray and chest CT dated 12/17/2018. The heart is enlarged noting atherosclerotic calcification of the thoracic aorta. Diffuse interstitial thickening likely represents fluid overload/congestive change. Mild atelectasis is noted at the lung bases. No airspace consolidation or large pleural effusion is identified. No pneumothorax is seen. The skeletal structures are osteopenic. The bony thorax is grossly intact. IMPRESSION: Cardiomegaly with evidence of fluid overload/congestive change. Clinical correlation will be required and radiographic follow-up to resolution is recommended. ACT 112: Negative or not required by law. Electronically signed by: Ankur Mercado M.D. 01/05/2024 10:13 PM PG Care Time/CCT Total # of Minutes Spent Total Time Spent with Patient: Total time spent is greater than 50% in coordination of care (as documented) at patient's floor/unit and/or counseling patient: Coding Level of Care Code 72495 SUB INP/OBS CARE 3/50MIN Diagnoses Acute respiratory failure with hypoxia J96.01 CAD (coronary artery disease) I25.10 Non-ST elevated myocardial infarction (non-STEMI) I21.4 Paroxysmal atrial fibrillation I48.0 COPD exacerbation J44.1 Infarction of kidney N28.0
[2024-01-06] MEDS ORDERED: PHARMACY GLYCEMIC MGMT CONSULT PRN (11:05)
[2024-01-06] MEDS: FUROSEMIDE INJ 20 MG/2 ML VIAL IV ONE (11:54)
--- NOTE | 2024-01-06 13:49 | Cardiology Consultation ---
Date of Consultation January 06, 2024 Assessment & Plan (1) Non-ST elevated myocardial infarction (non-STEMI): (2) Infarction of kidney: (3) Paroxysmal atrial fibrillation: (4) CAD (coronary artery disease): Mild ostial 30% LAD disease in 2016 Plan Will review her echo which was done earlier today. Will get her scheduled for left heart catheterization tomorrow. Hopefully Dr. Hoskins will be able to do the Tomorrow. I am holding her dose of Eliquis for today and in the morning prior to cath however we do not want to hold these for too long given her prior renal infarct. If her NOAC needs to be held longer would consider starting her on IV heparin. Depending on the results of the catheterizations, further recommendations will follow. Thank you for allowing me to participate in the care of this patient. I will turn her over to the [facility] cardiology group in the morning. History of Present Illness Reason for Consultation: New onset A-fib with chest pain Attending Physician: Rafael Wolfe MD History of Present Illness Meg Hu is a very nice 63-year-old woman who is here back in 2015 and underwent left heart catheterization by Dr. Jackson. At the time she was found to have an ostial 30% LAD lesion but otherwise normal coronary arteries. She was in the hospital this past August with a renal infarct. The etiology of that infarct was never completely clear but she was started on NOAC. She now presents to the hospital with an episode of severe chest pressure and heaviness which radiated down her left arm this was associated with tachycardia diaphoresis and a general feeling of being extremely unwell. She tells me that about a week ago she had a similar episode that woke her from sleep at about 4 AM but she did not seek medical attention. Her initial EKG in the emergency room shows A-fib with rapid ventricular response. She was initially treated with beta-joyce and this morning is back in normal sinus rhythm however her EKG shows deep anterolateral T wave inversion indicative of subendocardial myocardial infarction. Her troponins are in fact abnormal. Because of her symptoms I am recommending that she undergo repeat cardiac catheterization to redefine her coronary anatomy. She remains in normal sinus rhythm at this time. I am going to hold her apixaban today and in the morning so that she can undergo the left heart catheterization however she may need to be started on IV heparin afterwards. Also just a note she tells me that she was supposed to follow-up with a firestop/containment worker in [place] but she is not sure who it was and was unable to keep the appointment. Because she recognized Dr. Jackson when he was seeing her roommate I will transfer her care over to the [facility] cardiology group in the morning. I reviewed things with Dr. Jackson and we will make arrangements for her to have a left heart catheterization tomorrow. Allergies Allergy/AdvReac Type Severity Reaction Status Date / Time umeclidinium AdvReac Intermediate Vomiting Verified 11/15/23 13:33 [From Anoro Ellipta] vilanterol AdvReac Intermediate Vomiting Verified 11/15/23 13:33 [From Anoro Ellipta] Home Medications Medication Instructions Recorded Confirmed Type latanoprost 0.005 % eye drops 1 drp ophthalmic (eye) .COMPLEX 11/24/22 01/05/24 Rx #7.5 mL cholecalciferol (vitamin D3) 25 100 mcg PO QAM 01/17/23 01/05/24 History mcg (1,000 unit) tablet albuterol sulfate 90 mcg/actuation 1 inh inhalation QID shortness of 08/21/23 01/05/24 History aerosol inhaler breath or wheezing aspirin 81 mg chewable tablet 81 mg PO QAM 08/21/23 01/05/24 History (Aspirin Childrens) cyanocobalamin (vitamin B-12) 1,000 mcg PO QAM 08/21/23 01/05/24 History 1,000 mcg tablet (Vitamin B-12) ipratropium 20 mcg-albuterol 100 2 puff inhalation BID 08/21/23 01/05/24 History mcg/actuation mist for inhalation (Combivent Respimat) apixaban 5 mg tablet (Eliquis) 10 mg (2 x 5 mg) PO BID 30 days 09/20/23 01/05/24 Rx #120 tabs atorvastatin 40 mg tablet 40 mg PO QAM 90 days #90 tabs 10/02/23 01/05/24 Rx furosemide 20 mg tablet 20 mg PO .COMPLEX #90 tabs 10/22/23 01/05/24 Rx citalopram 40 mg tablet 40 mg PO QAM #90 tabs 11/05/23 01/05/24 Rx alprazolam 0.5 mg tablet 0.5 mg PO BID #45 tabs 12/11/23 01/05/24 Rx metoprolol succinate 25 mg 25 mg PO QAM #90 tabs 12/11/23 01/05/24 Rx tablet,extended release 24 hr Patient History Medical History (Updated 01/06/24 @ 13:48 by Alla Singh DO) Tobacco use Quit 2015 Skin tag of labia Surgical History History of section X 1 History of hysterectomy History of colonoscopy History of tooth extraction History of tonsillectomy History of cataract surgery RT/LEFT History of cardiac cath 2016: 30% occlusion LAD>NO STENTS AT [facility] Family History Brother Prostate cancer Father Myocardial infarction Other No family history of adverse response to anesthesia Denies family history of Family hx of colon cancer Ovarian cancer Breast cancer Colorectal cancer Social History (Updated 01/06/24 @ 13:45 by Alla Singh DO) Smoking Status: Former smoker Tobacco Type: Cigarettes Age Quit Using Tobacco: 52; Second Hand Exposure: No; Do You Dip or Chew Tobacco: No; Hx Alcohol Use: Yes Alcohol type: beer Hx Substance Use: No Preferred Language: Romanian Communication Ability: Effective Visual Impairment: No Limitations Hearing Ability: Normal Testboard Operator Required: No Beliefs That Will Affect Care: None marital status: / Current Living Situation: Alone Current Living Situation Comment: alone current occupational status: disabled How many Children do You have: 1 Feels Safe at Home: Yes Childhood Exposure to Second-Hand Smoke: No Diet: regular Diet Comment: regular caffeine: Yes during the past year weight has: remained stable Dental Care, Regularly: No Physical Activity Frequency: Daily Seatbelt Use: always Sunscreen Use: Yes Assistive Devices: None Review of Systems Review of Systems: All systems reviewed & are unremarkable except as noted in HPI & below Physical Exam Physical Exam: Awake alert oriented she is mildly anxious. Respiratory: Diffuse expiratory wheeze Cardiovascular: Heart now regular no murmurs or rubs appreciated No clubbing cyanosis or edema pulses intact Results & Data Vital Signs (Past 12 Hours) Vital Signs Temp Pulse Resp BP BP Pulse Ox O2 Del Method 01/06/24 11:34 36.5 C 62 18 115/69 95 Nasal Cannula 01/06/24 10:28 62 18 99 Nasal Cannula 01/06/24 08:06 36.7 C 68 18 127/64 97 Nasal Cannula 01/06/24 08:00 Nasal Cannula 01/06/24 04:09 36.8 C 115 H 19 116/66 97 Nasal Cannula 01/06/24 00:33 36.8 C 112 H 16 124/85 97 Nasal Cannula O2 Flow Rate 01/06/24 11:34 3 01/06/24 10:28 3 01/06/24 08:06 3 01/06/24 08:00 3 01/06/24 04:09 3 01/06/24 00:33 3 Laboratory Results Abnormal lab results 01/05/24 01/05/24 01/06/24 Range/Units 21:05 22:35 00:44 WBC 13.31 H (4.8-10.8) K/ul RBC 3.47 L (4.20-5.40) M/uL Hgb (12.0-16.0) g/dl Hct 36.7 L (37.0-47.0) % MCV 105.8 H (80.0-100.0) fL MCH 35.2 H (25.0-34.0) pg RDW Std Deviation 56.7 H (36.4-46.3) fL Neut # (Auto) 10.40 H (1.40-6.50) K/uL Lymph # (Auto) (1.20-3.40) K/uL [place] # (Auto) 0.64 H (0.11-0.59) K/uL Creatinine (0.6-1.2) mg/dl BUN/Creatinine Ratio 9.5 L (10-20) Glucose 236 H (70-99(Fasting)) mg/dl POC Glucose 132 H (70-99) mg/dl Phosphorus (2.5-4.9) mg/dl Magnesium (1.7-2.4) mg/dl Troponin I High Sens 100.7 H* 261.6 H* D (0-14) pg/ml B-Natriuretic Peptide 746 H (0-100) pg/ml 01/06/24 01/06/24 01/06/24 Range/Units 05:12 07:37 10:30 WBC (4.8-10.8) K/ul RBC 3.19 L (4.20-5.40) M/uL Hgb 11.1 L (12.0-16.0) g/dl Hct 32.5 L (37.0-47.0) % MCV 101.9 H (80.0-100.0) fL MCH 34.8 H (25.0-34.0) pg RDW Std Deviation 53.0 H (36.4-46.3) fL Neut # (Auto) (1.40-6.50) K/uL Lymph # (Auto) 0.26 L (1.20-3.40) K/uL [place] # (Auto) (0.11-0.59) K/uL Creatinine 0.54 L (0.6-1.2) mg/dl BUN/Creatinine Ratio (10-20) Glucose 183 H (70-99(Fasting)) mg/dl POC Glucose 210 H (70-99) mg/dl Phosphorus 2.4 L (2.5-4.9) mg/dl Magnesium 1.6 L (1.7-2.4) mg/dl Troponin I High Sens 197.1 H* D 128.6 H* D (0-14) pg/ml B-Natriuretic Peptide (0-100) pg/ml 01/06/24 Range/Units 10:52 WBC (4.8-10.8) K/ul RBC (4.20-5.40) M/uL Hgb (12.0-16.0) g/dl Hct (37.0-47.0) % MCV (80.0-100.0) fL MCH (25.0-34.0) pg RDW Std Deviation (36.4-46.3) fL Neut # (Auto) (1.40-6.50) K/uL Lymph # (Auto) (1.20-3.40) K/uL [place] # (Auto) (0.11-0.59) K/uL Creatinine (0.6-1.2) mg/dl BUN/Creatinine Ratio (10-20) Glucose (70-99(Fasting)) mg/dl POC Glucose 183 H (70-99) mg/dl Phosphorus (2.5-4.9) mg/dl Magnesium (1.7-2.4) mg/dl Troponin I High Sens (0-14) pg/ml B-Natriuretic Peptide (0-100) pg/ml Diagnostic Findings Echo was done today Medications Administered Current Inpatient Medications Acetaminophen (Acetaminophen 325 Mg Tab) 650 mg PO Q4H PRN PRN Reason: Pain or Fever Stop: 02/04/24 23:53 Last Admin: 01/06/24 05:24 Dose: 650 mg Alprazolam (Alprazolam 0.5 Mg Tablet) 0.5 mg PO BID [facility] Stop: 02/05/24 08:59 Last Admin: 01/06/24 08:26 Dose: 0.5 mg Apixaban (Apixaban 5 Mg Tablet) 5 mg PO BID [facility] Stop: 02/05/24 08:59 Last Admin: 01/06/24 08:26 Dose: 5 mg Aspirin (Aspirin 81 Mg Chew) 81 mg PO QAM [facility] Stop: 02/05/24 08:59 Last Admin: 01/06/24 08:27 Dose: 81 mg Atorvastatin Calcium ([facility]atin 40 Mg Tab) [facility] [place]: 02/05/24 08:59 Last Admin: 01/06/24 08:27 Dose: 40 mg Citalopram Hydrobromide (Citalopram 40 Mg Tab) 40 [facility] [place]: 02/05/24 08:59 Last Admin: 01/06/24 08:27 Dose: 40 mg Cyanocobalamin (Cyanocobalamin (B-12) 500 Mcg Tablet) 1,000 mcg PO QAM [facility] Stop: 02/05/24 08:59 Last Admin: 01/06/24 08:28 Dose: 1,000 mcg Dextrose (Dextrose 50% 50 Ml Syringe) 25 - 50 ml IV UD PRN; Protocol PRN Reason: Hypoglycemia Protocol Stop: 02/04/24 23:53 Glucagon (Glucagon For Inj 1 Mg Vial) 1 mg SQ UD PRN; Protocol PRN Reason: Hypoglycemia Protocol Stop: 02/04/24 23:53 Glucose (Glucose 40% Gel 15 Gm Tube) 15 - 30 gm PO UD PRN; Protocol PRN Reason: Hypoglycemia Protocol Stop: 02/04/24 23:53 Glucose (Glucose 10 Tab/Tube) 4 - 8 tab PO UD PRN; Protocol PRN Reason: Hypoglycemia Treatment Stop: 02/04/24 23:53 Methylprednisolone 40 mg/ (Syringe) 0.64 mls @ 1.5 mls/min IV Q8H JUAN M Stop: 02/05/24 05:59 Last Admin: 01/06/24 05:25 Dose: 1.5 mls/min Magnesium Sulfate/Dextrose (Magnesium Sulfate / D5w) 1 gm in 100 mls @ 50 mls/hr IV Q2H JUAN M Stop: 01/06/24 14:14 Last Admin: 01/06/24 11:56 Dose: 50 mls/hr Insulin Aspart (Insulin Aspart Per Unit Charge) 0 units SC ACHS JUAN M Stop: 02/05/24 07:29 Last Admin: 01/06/24 11:55 Dose: 4 units Ipratropium [place] (Ipratropium [place] Neb Soln 0.02% 0.5mg/2.5ml Vial) 0.5 mg NEB Q4H PRN PRN Reason: Dyspnea Stop: 02/04/24 22:48 Last Admin: 01/06/24 10:26 Dose: 0.5 mg Latanoprost (Latanoprost 0.005% Op Soln 2.5 Ml Btl) 1 drops OP PM [facility] Stop: 02/04/24 23:53 Last Admin: 01/06/24 03:34 Dose: Not Given Levalbuterol HCl (Levalbuterol Hcl 0.63 Mg/3 Ml Neb) 0.63 mg NEB Q4H PRN; Protocol PRN Reason: Shortness Of Breath Or Wheezing Stop: 02/04/24 22:48 Last Admin: 01/06/24 10:26 Dose: 0.63 mg Metoprolol Succinate (Metoprolol Succ 25mg Ext Rel Tab) 25 mg PO QAM JUAN M Stop: 02/05/24 08:59 Last Admin: 01/06/24 08:28 Dose: 25 mg Miscellaneous (Carbohydrates For Hypoglycemia ) 15 - 30 gm PO UD PRN PRN Reason: Hypoglycemia Protocol Stop: 02/04/24 23:53 Miscellaneous Information (Pharmacy Glycemic Mgmt Consult) 1 each N/A UD PRN; Protocol PRN Reason: Consult Stop: 02/05/24 11:04 Ondansetron HCl (Ondansetron Inj 2 Mg/Ml 2 Ml Vial) 4 mg IV Q6H PRN PRN Reason: Nausea Stop: 02/04/24 23:53 Vitamin D (Cholecalciferol 25 Mcg (1000 Units) Tab) [facility] [place]: 02/05/24 08:59 Last Admin: 01/06/24 08:27 Dose: 100 mcg ECG Additional Comments: Initial EKG in the emergency room shows A-fib with rapid ventricular response there are inferior and lateral ST-T wave changes noted. Repeat EKG in normal sinus rhythm shows deep anterolateral T wave inversions
--- NOTE | 2024-01-06 14:52 | Pharmacy Report ---
Pharmacy Glycemic Short Note 2 - Date of Service January 06, 2024 - Glycemic Short BSG Results (Last 24 hours): 01/05/24 01/05/24 01/06/24 21:05 22:35 05:12 Glucose 236 H 183 H POC Glucose 132 H 01/06/24 01/06/24 07:37 10:52 Glucose POC Glucose 210 H 183 H OUTPATIENT ANTIDIABETIC REGIMEN: * none * A1c = 5.1% ASSESSMENT: * Meg is a 63 yo admitted with shortness of breath and palpitations. * Patient does not have a h/o of diabetes. A1c of 5.1% is within normal range. * Hyperglycemia likely due to IV steroids for COPD exacerbation. Of note, BSG decreased from 236 to 132 mg/dL last evening in ~1 hour with no insulin administration in between. * Patient NPO at midnight for cariology intervention. * Unsure if patient requires basal insulin. Will hold for now and order overnight checks encase BSGs start to trend upward. PLAN FOR INPATIENT GLYCEMIC CONTROL: * Hold outpatient oral diabetes medications * Basal insulin * hold * Bolus insulin * NovoLog per scale ACHS or Q6hrs while NPO * Goal Range: Low 110 mg/dL - High 140 mg/dL * Correction Factor: 40 mg/dL/unit * Nutritional / Prandial insulin per carb ratio of 1 unit per 15 grams CHO consumed
[2024-01-06] MEDS: POTASSIUM CHLORIDE CRTAB 20 MEQ TABCR PO STA (16:07)
--- NOTE | 2024-01-06 16:47 | Electrocardiogram Report ---
Test Reason : Blood Pressure : */* mmHG Vent. Rate : 141 BPM Atrial Rate : 234 BPM P-R Int : * ms QRS Dur : 80 ms QT Int : 344 ms P-R-T Axes : * 50 214 degrees QTcB Int : 526 ms Atrial flutter with variable A-V block Abnormal ECG When compared with ECG of 17-Dec-2018 09:25, Atrial flutter has replaced Sinus rhythm Vent. rate has increased by [address] now depressed in Inferior leads ST now depressed in Anterolateral leads T wave inversion now evident in Inferior leads T wave inversion now evident in Anterolateral leads Confirmed by Alla Singh (Will) on 01/06/2024 4:46:50 PM Referred By: REFERRED SELF Confirmed By: Alla Singh
--- NOTE | 2024-01-06 16:58 | Emergency Department Note ---
ED Provider Note CHIEF COMPLAINT: Respiratory difficulty HISTORY OF PRESENT ILLNESS: This 63-year-old female patient presents to the emergency department [] REVIEW OF SYSTEMS: A review of systems was performed with positives and pertinent negatives listed in the history of present illness. 10 systems were reviewed and are otherwise negative. ALLERGIES: see below MEDICATIONS: see below PMH: see below SOCIAL HISTORY: see below DDx: [] PHYSICAL EXAM: Vital signs reviewed. General: Well-appearing, in no significant distress. HEENT: No scleral icterus, PERRLA, neck supple. Atraumatic. Cardiovascular: Regular rate and rhythm, no extra sounds. Pulmonary: Clear to auscultation bilaterally, normal work of breathing. Abdomen: Soft, nontender, nondistended, positive bowel sounds. Musculoskeletal: Atraumatic, no peripheral edema. Neurologic: Patient awake alert and oriented x 3, speech is clear Skin: Warm, dry, no rash EMERGENCY DEPARTMENT COURSE/MDM: [] MONITORING: An order for cardiac monitoring was placed and the patient is noted to be in a [] at [] beats per minute. RADIOLOGY: EKG: DISPOSITION: Past Med/Surg History Problem List (Updated 01/06/24 @ 13:48 by Alla Singh DO) Paroxysmal atrial fibrillation Non-ST elevated myocardial infarction (non-STEMI) Elevated troponin Sinus tachycardia COPD exacerbation CHF exacerbation Acute respiratory failure with hypoxia Left renal mass Infarction of kidney (Acute) Obesity CAD (coronary artery disease) Bilateral cataracts Removal scheduled 01/19/21 Glaucoma (Chronic) COPD (chronic obstructive pulmonary disease) (Chronic) Alcohol use Chronic anemia (Chronic) History of non-ST elevation myocardial infarction (NSTEMI) (Chronic) 2016> Dr. Jackson GERD (gastroesophageal reflux disease) (Chronic) Bipolar disorder (Chronic) Anxiety with depression (Chronic) Asthma (Chronic) Medical History (Updated 01/06/24 @ 13:48 by Alla Singh DO) Tobacco use Quit 2016 Skin tag of labia Surgical History History of section X 1 History of hysterectomy History of colonoscopy History of tooth extraction History of tonsillectomy History of cataract surgery RT/LEFT History of cardiac cath 2016: 30% occlusion LAD>NO STENTS AT [facility] Family History Brother Prostate cancer Father Myocardial infarction Other No family history of adverse response to anesthesia Denies family history of Family hx of colon cancer Ovarian cancer Breast cancer Colorectal cancer Social History (Updated 01/06/24 @ 13:45 by Alla Singh DO) Smoking Status: Former smoker Tobacco Type: Cigarettes Age Quit Using Tobacco: 52; Second Hand Exposure: No; Do You Dip or Chew Tobacco: No; Hx Alcohol Use: Yes Alcohol type: beer Hx Substance Use: No Preferred Language: Slovenian Communication Ability: Effective Visual Impairment: No Limitations Hearing Ability: Normal 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 Beliefs That Will Affect Care: None marital status: / Current Living Situation: Alone Current Living Situation Comment: alone current occupational status: disabled How many Children do You have: 1 Other Information That Helps Us Care for You: No Feels Safe at Home: Yes Safety Concerns: Feels Safe At This Time Childhood Exposure to Second-Hand Smoke: No Diet: regular Diet Comment: regular caffeine: Yes during the past year weight has: remained stable Dental Care, Regularly: No Physical Activity Frequency: Daily Seatbelt Use: always Sunscreen Use: Yes Assistive Devices: None Allergies Allergies Allergy/AdvReac Type Severity Reaction Status Date / Time umeclidinium AdvReac Intermediate Vomiting Verified 11/15/23 13:33 [From Anoro Ellipta] vilanterol AdvReac Intermediate Vomiting Verified 11/15/23 13:33 [From Anoro Ellipta] Home Meds Home Medications Medication Instructions Recorded Confirmed cholecalciferol (vitamin D3) 25 100 mcg PO QAM 01/17/23 01/05/24 mcg (1,000 unit) tablet albuterol sulfate 90 mcg/actuation 1 inh inhalation QID shortness of 08/21/23 01/05/24 aerosol inhaler breath or wheezing aspirin 81 mg chewable tablet 81 mg PO QAM 08/21/23 01/05/24 (Aspirin Childrens) cyanocobalamin (vitamin B-12) 1,000 mcg PO QAM 08/21/23 01/05/24 1,000 mcg tablet (Vitamin B-12) ipratropium 20 mcg-albuterol 100 2 puff inhalation BID 08/21/23 01/05/24 mcg/actuation mist for inhalation (Combivent Respimat) Previous Rx's Medication Instructions Recorded latanoprost 0.005 % eye drops 1 drp ophthalmic (eye) .COMPLEX 11/24/22 #7.5 mL apixaban 5 mg tablet (Eliquis) 10 mg (2 x 5 mg) PO BID 30 days 09/20/23 #120 tabs atorvastatin 40 mg tablet 40 mg PO QAM 90 days #90 tabs 10/02/23 furosemide 20 mg tablet 20 mg PO .COMPLEX #90 tabs 10/22/23 citalopram 40 mg tablet 40 mg PO QAM #90 tabs 11/05/23 alprazolam 0.5 mg tablet 0.5 mg PO BID #45 tabs 12/11/23 metoprolol succinate 25 mg 25 mg PO QAM #90 tabs 12/11/23 tablet,extended release 24 hr Results & Data (ED) Vital Signs Vital Signs - 24 hr 01/05/24 20:55 01/05/24 21:11 01/05/24 21:19 Temperature 36.6 C Temperature Source Oral Pulse Rate 129 H Pulse Rate [Apical] 110 H Pulse Rate from SpO2 Sensor Respiratory Rate 32 H 28 H Respiratory Effort / Characteristics Accessory Muscle Use Grunting Labored Accessory Muscle Use Grunting Blood Pressure 177/123 H Blood Pressure [Right Arm] 116/90 Blood Pressure Mean 141 Blood Pressure Mean [Right Arm] 98 Pulse Oximetry 97 94 Oxygen Delivery Method Non-rebreather BiPAP BiPAP Oxygen Flow Rate Sepsis Recent Fever Within 48 Hours No Sepsis New/Unexplained Change in Mental Status No Sepsis Action Taken by Nursing Physician Notified 01/05/24 21:30 01/05/24 21:44 01/05/24 21:51 Temperature Temperature Source Pulse Rate 113 H 132 H Pulse Rate [Apical] Pulse Rate from SpO2 Sensor 113 H 113 H Respiratory Rate 26 H 18 Respiratory Effort / Characteristics Blood Pressure 99/78 L 102/76 Blood Pressure [Right Arm] Blood Pressure Mean 85 84 Blood Pressure Mean [Right Arm] Pulse Oximetry 97 98 98 Oxygen Delivery Method BiPAP BiPAP BiPAP Oxygen Flow Rate Sepsis Recent Fever Within 48 Hours Sepsis New/Unexplained Change in Mental Status Sepsis Action Taken by Nursing 01/05/24 22:00 01/05/24 22:06 01/05/24 22:21 Temperature Temperature Source Pulse Rate 116 H 133 H Pulse Rate [Apical] Pulse Rate from SpO2 Sensor 123 H 138 H Respiratory Rate 22 30 H Respiratory Effort / Characteristics Blood Pressure 126/74 Blood Pressure [Right Arm] Blood Pressure Mean 91 Blood Pressure Mean [Right Arm] Pulse Oximetry 93 92 96 Oxygen Delivery Method Nasal Cannula Nasal Cannula Nasal Cannula Oxygen Flow Rate 3 3 3 Sepsis Recent Fever Within 48 Hours Sepsis New/Unexplained Change in Mental Status Sepsis Action Taken by Nursing Laboratory Data 01/06/24 05:12 01/06/24 05:12 Lab Results 01/05/24 01/05/24 Range/Units 21:05 21:14 WBC 13.31 H (4.8-10.8) K/ul RBC 3.47 L (4.20-5.40) M/uL Hgb 12.2 (12.0-16.0) g/dl Hct 36.7 L (37.0-47.0) % MCV 105.8 H (80.0-100.0) fL MCH 35.2 H (25.0-34.0) pg MCHC 33.2 (32.0-36.0) g/dL RDW Std Deviation 56.7 H (36.4-46.3) fL RDW Coeff of Adrián 14.5 (11.5-14.5) % Plt Count 275 (130-400) K/uL MPV 10.7 (9.4-12.4) fL Immature Gran % (Auto) 0.6 % Neut % (Auto) 78.1 % Lymph % (Auto) 14.8 % Scott % (Auto) 4.8 % Eos % (Auto) 1.0 % Baso % (Auto) 0.7 % Neut # (Auto) 10.40 H (1.40-6.50) K/uL Lymph # (Auto) 1.97 (1.20-3.40) K/uL Scott # (Auto) 0.64 H (0.11-0.59) K/uL Eos # (Auto) 0.13 (0.00-0.50) K/uL Baso # (Auto) 0.09 (0.00-0.20) K/uL Immature Gran # (Auto) 0.08 (0.01-0.20) K/uL Absolute Nucleated RBC 0.02 (0.00-0.12) K/uL Nucleated RBC % (auto) 0.2 % Sodium 137 (136-145) mmol/L Potassium 3.9 (3.5-5.1) mmol/L Chloride 101 (98-107) mmol/L Carbon Dioxide 29 (21-32) mmol/L Anion Gap 7 (3-11) BUN 7 (6-23) mg/dl Creatinine 0.74 (0.6-1.2) mg/dl Est Cr Clr Drug Dosing 69.7 ml/min Est GFR ( Amer) 98.5 ml/min Est GFR (Non-Af Amer) 85.0 ml/min BUN/Creatinine Ratio 9.5 L (10-20) Glucose 236 H (70-99(Fasting)) mg/dl Calcium 9.0 (8.6-10.3) mg/dl Magnesium 1.8 (1.7-2.4) mg/dl Total Bilirubin 0.5 (0.2-1.0) mg/dl AST 34 (13-39) U/L ALT 37 (7-52) U/L Alkaline Phosphatase 73 (34-104) U/L Troponin I High Sens 100.7 H* (0-14) pg/ml B-Natriuretic Peptide 746 H (0-100) pg/ml Total Protein 7.3 (6.0-8.3) gm/dl Albumin 4.4 (3.4-5.0) gm/dl Globulin 2.9 (2.5-4.0) gm/dl Albumin/Globulin Ratio 1.5 (0.9-2) Adenovirus (PCR) Not Detected (NotDetected) B. pertussis DNA (PCR) Not Detected (NotDetected) B.parapertussis DNA PCR Not Detected (NotDetected) C. pneumoniae DNA (PCR) Not Detected (NotDetected) Coronavirus OC43 (PCR) Not Detected (NotDetected) Coronavirus HKU1 (PCR) Not Detected (NotDetected) Coronavirus 229E (PCR) Not Detected (NotDetected) SARS-CoV-2 (PCR) Not Detected (NotDetected) Coronavirus NL63 (PCR) Not Detected (NotDetected) Human Metapneumovir PCR Not Detected (NotDetected) Influenza Type A (PCR) Not Detected (NotDetected) Influenza Type B (PCR) Not Detected (NotDetected) M. pneumoniae (PCR) Not Detected (NotDetected) Parainfluenza 1 (PCR) Not Detected (NotDetected) Parainfluenza 2 (PCR) Not Detected (NotDetected) Parainfluenza 3 (PCR) Not Detected (NotDetected) Parainfluenza 4 (PCR) Not Detected (NotDetected) RSV (PCR) Not Detected (NotDetected) Entero/Rhino (PCR) Not Detected (NotDetected) Administered Medications Acetaminophen (Acetaminophen 325 Mg Tab) 650 mg PO Q4H PRN PRN Reason: Pain or Fever Stop: 02/04/24 23:53 Last Admin: 01/06/24 05:24 Dose: 650 mg Documented By: FEDE Alprazolam (Alprazolam 0.5 Mg Tablet) 0.5 mg PO BID [facility] Stop: 02/05/24 08:59 Last Admin: 01/06/24 08:26 Dose: 0.5 mg Documented By: AMAURI Apixaban (Apixaban 5 Mg Tablet) 5 mg PO BID [facility] Stop: 02/05/24 08:59 Last Admin: 01/06/24 08:26 Dose: 5 mg Documented By: AMAURI Aspirin (Aspirin 81 Mg Chew) [facility] Stop: 02/05/24 08:59 Last Admin: 01/06/24 08:27 Dose: 81 mg Documented By: AMAURI Atorvastatin Calcium (Atorvastatin 40 Mg Tab) [facility] [place] [facility] Stop: 02/05/24 08:59 Last Admin: 01/06/24 08:27 Dose: 40 mg Documented By: AMAURI Citalopram Hydrobromide (Citalopram 40 Mg Tab) 40 mg PO [facility] Stop: 02/05/24 08:59 Last Admin: 01/06/24 08:27 Dose: 40 mg Documented By: AMAURI Cyanocobalamin (Cyanocobalamin (B-12) 500 Mcg Tablet) 1,000 mcg [facility] [place] [facility] Stop: 02/05/24 08:59 Last Admin: 01/06/24 08:28 Dose: 1,000 mcg Documented By: AMAURI Methylprednisolone 40 mg/ (Syringe) 0.64 mls @ 1.5 mls/min IV Q8H [facility] Stop: 02/05/24 05:59 Last Admin: 01/06/24 13:48 Dose: 1.5 mls/min Documented By: Admin: 01/06/24 05:25 Dose: 1.5 mls/min Documented By: FEDE Insulin Aspart (Insulin Aspart Per Unit Charge) 0 units SC ACHS [facility] Stop: 02/05/24 07:29 Last Admin: 01/06/24 11:55 Dose: 4 units Documented By: AMAURI Co-signed By: ELSA Admin: 01/06/24 08:25 Dose: 3 units Documented By: AMAURI Co-signed By: RADHA Ipratropium [place] (Ipratropium [place] Neb Soln 0.02% 0.5mg/2.5ml Vial) 0.5 mg NEB Q4H PRN PRN Reason: Dyspnea Stop: 02/04/24 22:48 Last Admin: 01/06/24 10:26 Dose: 0.5 mg Documented By: Admin: 01/06/24 00:06 Dose: 0.5 mg Documented By: OTILIO Latanoprost (Latanoprost 0.005% Op Soln 2.5 Ml Btl) 1 drops OP PM JUAN M Stop: 02/04/24 23:53 Last Admin: 01/06/24 03:34 Dose: Not Given Documented By: FEDE Levalbuterol HCl (Levalbuterol Hcl 0.63 Mg/3 Ml Neb) 0.63 mg NEB Q4H PRN; Protocol PRN Reason: Shortness Of Breath Or Wheezing Stop: 02/04/24 22:48 Last Admin: 01/06/24 10:26 Dose: 0.63 mg Documented By: Admin: 01/06/24 00:06 Dose: 0.63 mg Documented By: OTILIO Metoprolol Succinate (Metoprolol Succ 25mg Ext Rel Tab) 25 mg PO [facility] Stop: 02/05/24 08:59 Last Admin: 01/06/24 08:28 Dose: 25 mg Documented By: AMAURI Vitamin D (Cholecalciferol 25 Mcg (1000 Units) Tab) 100 mcg PO [facility] Stop: 02/05/24 08:59 Last Admin: 01/06/24 08:27 Dose: 100 mcg Documented By: AMAURI Discontinued Medications Apixaban (Apixaban 5 Mg Tablet) 5 mg PO ONE ONE Stop: 01/05/24 22:11 Last Admin: 01/05/24 22:39 Dose: 5 mg Documented By: BRYSON Furosemide (Furosemide 40 Mg/4 Ml Vial) 40 mg IV NOW STA Stop: 01/05/24 21:07 Last Admin: 01/05/24 21:21 Dose: 40 mg Documented By: BRYSON Furosemide (Furosemide Inj 20 Mg/2 Ml Vial) 20 mg IV ONE ONE Stop: 01/06/24 11:06 Last Admin: 01/06/24 11:54 Dose: 20 mg Documented By: AMAURI Magnesium Sulfate/Dextrose (Magnesium Sulfate / D5w) 1 gm in 100 mls @ 50 mls/hr IV Q2H JUAN M Stop: 01/06/24 14:14 Last Infusion: 01/06/24 14:36 Dose: Infused Documented By: Admin: 01/06/24 11:56 Dose: 50 mls/hr Documented By: Infusion: 01/06/24 11:56 Dose: Infused Documented By: Admin: 01/06/24 10:16 Dose: 50 mls/hr Documented By: Infusion: 01/06/24 10:16 Dose: Infused Documented By: Admin: 01/06/24 08:26 Dose: 50 mls/hr Documented By: AMAURI Lorazepam (Lorazepam 2 Mg/1 Ml Vial) 0.5 mg IV NOW STA Stop: 01/05/24 22:09 Last Admin: 01/05/24 22:26 Dose: 0.5 mg Documented By: BRYSON Methylprednisolone (Methylprednisolone 125 Mg/2 Ml Vial) 125 mg IV NOW STA Stop: 01/05/24 22:04 Last Admin: 01/05/24 22:29 Dose: 125 mg Documented By: BRYSON Nitroglycerin (Nitroglycerin 2% Ointment 30gm Tube) 1 inch EXT NOW ONE Stop: 01/05/24 21:08 Last Admin: 01/05/24 21:23 Dose: 1 inch Documented By: BRYSON Potassium Chloride (Potassium Chloride Crtab 20 Meq Tabcr) 40 meq PO NOW STA Stop: 01/06/24 15:07 Last Admin: 01/06/24 16:07 Dose: 40 meq Documented By: AMAURI Discharge Plan Visit Data Chief Complaint: Respiratory Distress Stated Complaint: RESPATORY DISTRESS ED Provider: Yamilet Zapata Patient Disposition: Admitted As Inpatient Discharge Instructions Interventions: ED Discharge Assessment Last Done: 01/05/24 23:21
--- NOTE | 2024-01-06 17:00 | Electrocardiogram Report ---
Test Reason : Blood Pressure : */* mmHG Vent. Rate : 69 BPM Atrial Rate : 69 BPM P-R Int : 192 ms QRS Dur : 86 ms QT Int : 528 ms P-R-T Axes : * 51 155 degrees QTcB Int : 565 ms Normal sinus rhythm Lateral infarct , age undetermined Prolonged QT Abnormal ECG When compared with ECG of 05-Jan-2024 21:03, (unconfirmed) Significant changes have occurred NSR has replaced Atrial Fibrillation Anterolateral ST-T wave changes are new. Confirmed by Alla Singh (Will) on 01/06/2024 4:59:52 PM Referred By: REFERRED SELF Confirmed By: Alla Singh
[2024-01-06] MEDS: MAGNESIUM OXIDE 400 MG TAB PO SCH (19:59)
[2024-01-07 08:20] LABS: Hematocrit (blood only) 32.4 % (37.0-47.0); Hemoglobin 10.5 g/dl (12.0-16.0); Mean Corpuscular Hemoglobin 33.9 pg (25.0-34.0); Mean Corpuscular Hgb Conc 32.4 g/dL (32.0-36.0); Mean Corpuscular Volume 104.5 fL (80.0-100.0); Platelet Count 194 K/uL (130-400); RDW Coefficient of Variation 14.6 % (11.5-14.5); RDW Standard Deviation 55.3 fL (36.4-46.3); White Blood Count 15.75 K/ul (4.8-10.8)
[2024-01-07 08:45] LABS: Basophils # (auto) 0.01 K/uL (0.00-0.20); Basophils % (auto) 0.1 %; Immature Granulocytes # (auto) 0.08 K/uL (0.01-0.20); Immature Granulocytes % (auto) 0.5 %; Lymphocytes # (auto) 0.48 K/uL (1.20-3.40); Monocytes # (auto) 0.52 K/uL (0.11-0.59); Monocytes % (auto) 3.3 %; Neutrophils # (auto) 14.66 K/uL (1.40-6.50); Neutrophils % (auto) 93.1 %; RBC Morphology Unremarkable
[2024-01-07] MEDS: INSULIN ASPART PER UNIT CHARGE SC SCH ×2 (09:00→12:25)
[2024-01-07 09:04] LABS: BUN Creatinine Ratio 28.8 (10-20); Calcium 9.7 mg/dl (8.6-10.3); Chol HDL Ratio 2.5 (0-5); Creatinine Clr Calc Pharmacy 84.2 ml/min; Est GFR (African American) 111.5 ml/min; Est GFR (Non-African American) 96.2 ml/min; Magnesium 2.3 mg/dl (1.7-2.4); Potassium 4.7 mmol/L (3.5-5.1)
[2024-01-07] MEDS: ASPIRIN 325 MG ECTAB PO ONE (09:36)
--- NOTE | 2024-01-07 09:37 | Pre Anesthesia Assessment ---
Date of Service January 07, 2024 Pre Sedation Assessment Vital Signs Temp Pulse Pulse Resp BP BP Pulse Ox 01/07/24 09:00 56 L 14 139/63 97 01/07/24 07:41 97.3 F L 52 L 18 130/77 98 01/07/24 07:32 01/07/24 04:12 97.9 F 61 17 186/64 H 99 01/06/24 23:54 01/06/24 23:51 60 01/06/24 23:48 97.9 F 64 19 125/70 99 01/06/24 20:14 01/06/24 20:07 97.9 F 76 22 120/61 76 L 01/06/24 15:42 97.7 F 60 18 101/53 L 98 01/06/24 11:34 97.7 F 62 18 115/69 95 01/06/24 10:28 62 18 99 Pulse Ox O2 Del Method O2 Del Method O2 Flow Rate O2 Flow Rate 01/07/24 09:00 Room Air 01/07/24 07:41 Nasal Cannula 2 01/07/24 07:32 Nasal Cannula 2 01/07/24 04:12 Nasal Cannula 2 01/06/24 23:54 99 Nasal Cannula 2 01/06/24 23:51 01/06/24 23:48 Nasal Cannula 2 01/06/24 20:14 Nasal Cannula 2 01/06/24 20:07 Nasal Cannula 2 01/06/24 15:42 Nasal Cannula 3 01/06/24 11:34 Nasal Cannula 3 01/06/24 10:28 Nasal Cannula 3 Cardiovascular + regular rate Respiratory + respiratory effort normal Pre-Sedation Airway Assessment Smoking Status: Former smoker Hx Sleep Apnea: No Hx Difficult Intubation: No Short, Thick Neck: No Thyromental Distance: > or= 3.5 Finger Breadths Oral Cavity: + Dentures Mallampati Class: III ASA: ASA3 NPO Status Date of Last Intake of Fluids: 01/06/24 Time of Last Intake of Fluids: 20:00 Date of Last Intake of Solid Food: 01/06/24 Time of Last Intake of Solid Foods: 20:00 Procedure Planning Contraindications for Sedation: none Current Medications Reviewed: Yes Notes The planned sedation has been discussed with the patient. Informed Consent was obtained. I have identified the patient, determined the appropriateness of sedation and have assessed the patient immediately prior to the procedure. All medicine(s) and interventions are by my order.
[2024-01-07] MEDS: niCARdipine HCL INJ 2.5 MG/ML 10 ML AMP ONE (09:58)
[2024-01-07] MEDS: NITROGLYCERIN/D5W 100MCG/ML 20ML SYR ONE (09:59)
[2024-01-07] MEDS: MIDAZOLAM HCL 1 MG/ML 2ML VIAL ONE (10:00)
[2024-01-07] MEDS: HEPARIN (PORCINE) 1000 UNIT/ML 10 ML (CATH LAB USE ONLY) ONE (10:01)
[2024-01-07] MEDS: fentaNYL citrate PF 100 MCG/2 ML VIAL ONE (10:01)
[2024-01-07] MEDS: OPTIRAY 350 ONE (10:02)
--- NOTE | 2024-01-07 10:04 | Post Anesthesia Assessment ---
Date of Service January 07, 2024 Post Sedation Assessment Vital Signs Temp Pulse Pulse Resp BP BP Pulse Ox 01/07/24 09:00 56 L 14 139/63 97 01/07/24 07:41 97.3 F L 52 L 18 130/77 98 01/07/24 07:32 01/07/24 04:12 97.9 F 61 17 186/64 H 99 01/06/24 23:54 01/06/24 23:51 60 01/06/24 23:48 97.9 F 64 19 125/70 99 01/06/24 20:14 01/06/24 20:07 97.9 F 76 22 120/61 76 L 01/06/24 15:42 97.7 F 60 18 101/53 L 98 01/06/24 11:34 97.7 F 62 18 115/69 95 01/06/24 10:28 62 18 99 Pulse Ox O2 Del Method O2 Del Method O2 Flow Rate O2 Flow Rate 01/07/24 09:00 Room Air 01/07/24 07:41 Nasal Cannula 2 01/07/24 07:32 Nasal Cannula 2 01/07/24 04:12 Nasal Cannula 2 01/06/24 23:54 99 Nasal Cannula 2 01/06/24 23:51 01/06/24 23:48 Nasal Cannula 2 01/06/24 20:14 Nasal Cannula 2 01/06/24 20:07 Nasal Cannula 2 01/06/24 15:42 Nasal Cannula 3 01/06/24 11:34 Nasal Cannula 3 01/06/24 10:28 Nasal Cannula 3 Recovery Score Activity: Moves 4 extremities Respiration: Deep Breath/Cough Circulation: +/-20% PreAnes Value Consciousness: Fully Awake Oxygen Saturation: O2 needed for >90% Discharge Sedation Level of Care: Fast Track Phase II Post Sedation Plan On clinical assessment, the patient appears to have tolerated the sedation without complications. Patient is recovering as anticipated. Patient will continue to be monitored by nursing and may be discharged when sedation discharge criteria are met per below protocol. Upon Completions of procedure up to 15 minutes continue every 5 minute vital signs and the P.A.R. score; then discharge to a Phase I or Fast Track to Phase II per the following guidelines: * Discharge Patient to appropriate Phase II area if PAR is 8 or greater or return to pre- procedure baseline. The post - procedure orders will be as directed. * If PAR score is less than 8 or not return to pre-procedure baseline then patient will follow Phase I monitoring till PAR is reached for Phase II. The Phase I may be done in procedure room or may call to secure a Phase I area. * If naloxone or flumazenil are used for reversal, hold in Phase I for continued monitoring from when last reversal dose was given for a minimum of 60 minutes or longer pending the nurse and/or physician discretion of patient condition before discharge to Phase II. Please call the Sedation Physician to re-evaluate and complete post-note for discharge to Phase II area. Do NOT discharge from procedure sedation or Phase 1 until post- sedation evaluation note is complete by procedure /sedation MD Sedation Discharge Instructions to be given to the patient at discharge to home.
--- NOTE | 2024-01-07 10:15 | Cardiac Catheterization ---
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 Clinical evaluation leading to the procedure CAD Presenation: Unstable angina Anginal Classification: CCS IV Diagnostic Physicians Name: Damien Levi MD Closure Device Recommendations: Medical Therapy and/or Counseling Cardiac Cath Procedure Full Procedure Date January 07, 2024 Pre-Procedure Diagnosis Pre-Procedure Diagnosis: Acute Coronary Syndrome, Angina and CAD AUC Score AUC Score: 7 Post-Procedure Diagnosis Post-Procedure Diagnosis: Mild CAD and Elevated Intracardiac Pressures Procedure(s) Performed Procedure(s) Performed: Coronary Angiography and Left Heart Cath Systems Eng Damien Levi MD Incendiaries Supervisor(s) Lori Estimated Blood Loss Estimated Blood Loss: 10 Medication(s) Medication(s): Fentanyl, Heparin, Lidocaine 1%, Nicardipine, Nitroglycerin and Versed Summary of Findings Indication: Suspected ACS. History of mild CAD (30% ostial LAD 2015). Access: 6 Fr slender right radial artery Catheters: Tuckerman Findings: LM -normal caliber, no significant disease LAD -medium caliber, 30-40% ostial stenosis, remainder of vessel without significant disease and wraps around apex. Medium D2 20-30% ostial Circumflex -medium caliber, no significant disease. Medium OM 2 without dise ase. Small high OM1 40% ostial stenosis Ramusmedium caliber, no significant disease RCA -dominant, normal caliber, no significant disease. Medium RPDA without disease. LVEDP -36 Arterial Closure: TR band Summary: 1. Mild nonobstructive coronary artery disease -30-40% ostial LAD (unchanged from (05/2015) 2. Elevated intracardiac filling pressure (LVEDP 36). Recommendations: No high risk or acute CAD to explain patient's recent symptoms. Additional IV Lasix today and continued maintenance diuretics for suspected HFpEF Continued ASCVD risk factor modification Hemodynamics Rest Ao:: 143/61/92 Final Ao: 132/61/90 LV: 136/36 Recommendations Recommendations: Medical Therapy and/or Counseling Specimens Specimens: None Radiation Exposure (mGy) 397 Contrast (mls) 35 Anesthesia Moderate 6617-6205 Procedural Complication(s) None Disposition PCU I attest to the content of the Intraoperative Record and any orders documented therein. Any exceptions are noted below. [facility] Card Cath Procedure Codes Cardiac Catheterization Procedure 1: Cardiovascular Cath Procedures: 63983 Coronaries and LHC (+/-LV) Moderate Sedation Procedure 1: Sedation/Anesthesia: 10413 Mod Sedation by the same physician;Init15 Min Child Age 5 & Up PG Care Time/CCT Total # of Minutes Spent Total Time Spent with Patient: Total time spent is greater than 50% in coordination of care (as documented) at patient's floor/unit and/or counseling patient:
[2024-01-07] MEDS: FLUTICASONE/VILANTEROL 100/25MCG 14 PUFFS/INHALER INH SCH (10:48)
[2024-01-07] MEDS: FUROSEMIDE 40 MG/4 ML VIAL IV ONE (10:57)
--- NOTE | 2024-01-07 13:30 | Hospitalist Progress Note ---
Date of Service January 07, 2024 Assessment & Plan (1) Acute respiratory failure with hypoxia: (2) CAD (coronary artery disease): (3) Non-ST elevated myocardial infarction (non-STEMI): (4) Paroxysmal atrial fibrillation: (5) COPD exacerbation: (6) Infarction of kidney: Plan 63-year-old female with past medical history of renal infarct, coronary artery disease, glaucoma, COPD, history of tobacco use disorder, who presents to the emergency room with complaints of acute onset of shortness of breath with palpitations and had similar episode few weeks ago which resolved on its own. #Acute hypoxic respiratory failure Likely combination of atrial fibrillation, COPD exacerbation and CHF Patient on 2 L of oxygen via nasal cannula: Wean as tolerated to keep saturation between 89 to 92% # Paroxysmal atrial fibrillation #NSTEMI # Nonobstructive coronary artery disease # Acute diastolic congestive heart failure with preserved ejection fraction of 55% Patient was initially in atrial fibrillation and then she spontaneously co nverted to sinus rhythm Troponins elevated and peaked at 261 TSH is 0.401 Echo showed EF of 55 to 60% with mild posterior wall and mild lateral wall hypokinesis with grade 1 diastolic dysfunction. Cardiology saw the patient and she underwent cardiac cath this morning Cardiac cath report and recommendations from cardiology are as follows: Summary: 1. Mild nonobstructive coronary artery disease -30-40% ostial LAD (unchanged from (05/2015) 2. Elevated intracardiac filling pressure (LVEDP 36). Recommendations: No high risk or acute CAD to explain patient's recent symptoms. Additional IV Lasix today and continued maintenance diuretics for suspected HFpEF Continued ASCVD risk factor modification Patient is already on apixaban 5 mg p.o. twice daily for renal infarct Continue aspirin plus statin plus Toprol-XL 25 mg daily Total cholesterol is 208 LDL is 110 HDL is 84 I/O monitoring Daily weights Switch to Bumex 1 mg p.o. daily starting tomorrow Check repeat chest x-ray #Acute exacerbation of COPD #History of tobacco use disorder Smoking cessation counseling provided Patient has received 2 doses of IV Solu-Medrol 40 mg today Switch to oral prednisone 40 mg p.o. daily starting tomorrow Xopenex nebs as needed Check 2 Step test for home O2 assessment #History of renal infarct IN 08/2023 Patient is on apixaban 5 mg p.o. twice daily She has outpatient follow-up with emergency preparedness coordinator Dr. Stinson #Anxiety and depression Continue citalopram 40 mg daily Continue Xanax # Hyperglycemia A1c is 5.1 Elevated blood sugars likely secondary to steroids Pharmacy consult for glycemic control CODE STATUS: Full code DVT prophylaxis: Patient on apixaban Discharge planning likely home tomorrow if medically stable Care plan discussed with patient, nursing staff Admission and Anticipated Discharge Date Admission Date: January 05, 2024 Subjective Patient seen and examined Labs reviewed Vital signs reviewed Patient underwent cardiac cath this morning She reports improvement in her cough and shortness of breath She denies any chest pain, nausea, vomiting, diarrhea, abdominal pain She states steroids are making her more anxious and she cannot sleep at night be cause the steroids Review of Systems Review of Systems: As per HPI Physical Exam Physical Exam: General: No acute distress Psych: Awake and alert HEENT: Anicteric sclera, moist oral mucosa CVS: Regular rate and rhythm Lungs: Bilateral air entry, no wheezing audible, no use of accessory muscles noted Abdomen: Soft, nontender, no rebound, no guarding Ext: No lower extremity edema, no calf tenderness Neuro: No focal motor deficits noted Results & Data Results & Data Vital Signs (Past 12 Hours) Vital Signs Temp Pulse Resp BP BP Pulse Ox O2 Del Method 01/07/24 11:41 36.7 C 56 L 20 131/80 93 Room Air 01/07/24 10:25 61 16 138/51 L 93 Room Air 01/07/24 10:10 61 16 141/62 H 96 Room Air 01/07/24 09:00 56 L 14 139/63 97 Room Air 01/07/24 07:41 36.3 C L 52 L 18 130/77 98 Nasal Cannula 01/07/24 07:32 Nasal Cannula 01/07/24 04:12 36.6 C 61 17 186/64 H 99 Nasal Cannula O2 Flow Rate 01/07/24 11:41 01/07/24 10:25 01/07/24 10:10 01/07/24 09:00 01/07/24 07:41 2 01/07/24 07:32 2 01/07/24 04:12 2 Laboratory Results Laboratory Results - last 24 hr 01/06/24 01/06/24 01/06/24 15:11 16:24 19:53 WBC RBC Hgb Hct MCV MCH MCHC RDW Std Deviation RDW Coeff of Adrián Plt Count MPV Immature Gran % (Auto) Neut % (Auto) Lymph % (Auto) [place] % (Auto) Eos % (Auto) Baso % (Auto) Neut # (Auto) Lymph # (Auto) [place] # (Auto) Eos # (Auto) Baso # (Auto) Immature Gran # (Auto) RBC Morphology Sodium Potassium Chloride Carbon Dioxide Anion Gap BUN Creatinine Est Cr Clr Drug Dosing Est GFR ( Amer) Est GFR (Non-Af Amer) BUN/Creatinine Ratio Glucose POC Glucose 131 H 126 H 142 H Calcium Magnesium Triglycerides Cholesterol LDL Cholesterol, Calc VLDL Cholesterol, Calc HDL Cholesterol Cholesterol/HDL Ratio Vitamin B12 01/06/24 01/07/24 01/07/24 23:41 03:39 07:24 WBC 15.75 H RBC 3.10 L Hgb 10.5 L Hct 32.4 L MCV 104.5 H MCH 33.9 MCHC 32.4 RDW Std Deviation 55.3 H RDW Coeff of Adrián 14.6 H Plt Count 194 MPV 11.0 Immature Gran % (Auto) 0.5 Neut % (Auto) 93.1 Lymph % (Auto) 3.0 [place] % (Auto) 3.3 Eos % (Auto) 0.0 Baso % (Auto) 0.1 Neut # (Auto) 14.66 H Lymph # (Auto) 0.48 L [place] # (Auto) 0.52 Eos # (Auto) 0.00 Baso # (Auto) 0.01 Immature Gran # (Auto) 0.08 RBC Morphology Unremarkable Sodium 135 L Potassium 4.7 D Chloride 99 Carbon Dioxide 29 Anion Gap 7 BUN 17 Creatinine 0.59 L Est Cr Clr Drug Dosing 84.2 Est GFR ( Amer) 111.5 Est GFR (Non-Af Amer) 96.2 BUN/Creatinine Ratio 28.8 H Glucose 145 H POC Glucose 181 H 161 H Calcium 9.7 Magnesium 2.3 Triglycerides 68 Cholesterol 208 H LDL Cholesterol, Calc 110 VLDL Cholesterol, Calc 14 HDL Cholesterol 84 Cholesterol/HDL Ratio 2.5 Vitamin B12 621 01/07/24 10:50 WBC RBC Hgb Hct MCV MCH MCHC RDW Std Deviation RDW Coeff of Adrián Plt Count MPV Immature Gran % (Auto) Neut % (Auto) Lymph % (Auto) [place] % (Auto) Eos % (Auto) Baso % (Auto) Neut # (Auto) Lymph # (Auto) [place] # (Auto) Eos # (Auto) Baso # (Auto) Immature Gran # (Auto) RBC Morphology Sodium Potassium Chloride Carbon Dioxide Anion Gap BUN Creatinine Est Cr Clr Drug Dosing Est GFR ( Amer) Est GFR (Non-Af Amer) BUN/Creatinine Ratio Glucose POC Glucose 195 H Calcium Magnesium Triglycerides Cholesterol LDL Cholesterol, Calc VLDL Cholesterol, Calc HDL Cholesterol Cholesterol/HDL Ratio Vitamin B12 PG Care Time/CCT Total # of Minutes Spent Total Time Spent with Patient: Total time spent is greater than 50% in coordination of care (as documented) at patient's floor/unit and/or counseling patient: Coding Level of Care Code 38752 SUB INP/OBS CARE 2/35MIN Diagnoses Acute respiratory failure with hypoxia J96.01 CAD (coronary artery disease) I25.10 Non-ST elevated myocardial infarction (non-STEMI) I21.4 Paroxysmal atrial fibrillation I48.0 COPD exacerbation J44.1 Infarction of kidney N28.0
--- NOTE | 2024-01-07 16:36 | XRay Report ---
XR chest 2V PA/lateral CLINICAL HISTORY: Congestive heart failure. COMPARISON STUDY: Chest CT December 17, 2018. Chest radiograph January 05, 2024. FINDINGS: There is no pneumothorax or pleural effusion. Pulmonary edema has resolved. Cardiomegaly is again noted. Mediastinal contours are stable. IMPRESSION: Cardiomegaly. Interval resolution of pulmonary edema. ACT 112: Negative or not required by law. Electronically signed by: Moy Márquez M.D. 01/07/2024 4:34 PM
[2024-01-07] MEDS: FAMOTIDINE 20 MG TAB PO SCH (17:16)
[2024-01-07] MEDS: ALPRAZolam 0.5 MG TABLET PO STA (21:46)
[2024-01-08 07:18] LABS: Basophils # (auto) 0.02 K/uL (0.00-0.20); Basophils % (auto) 0.1 %; Eosinophils # (auto) 0.01 K/uL (0.00-0.50); Eosinophils % (auto) 0.1 %; Hemoglobin 11.6 g/dl (12.0-16.0); Immature Granulocytes # (auto) 0.09 K/uL (0.01-0.20); Immature Granulocytes % (auto) 0.6 %; Lymphocytes # (auto) 2.15 K/uL (1.20-3.40); Lymphocytes % (auto) 14.3 %; Mean Corpuscular Hemoglobin 34.8 pg (25.0-34.0); Mean Corpuscular Hgb Conc 34.1 g/dL (32.0-36.0); Mean Corpuscular Volume 102.1 fL (80.0-100.0); Monocytes # (auto) 1.13 K/uL (0.11-0.59); Monocytes % (auto) 7.5 %; Neutrophils # (auto) 11.64 K/uL (1.40-6.50); Neutrophils % (auto) 77.4 %; Platelet Count 230 K/uL (130-400); RDW Coefficient of Variation 14.5 % (11.5-14.5); RDW Standard Deviation 54.4 fL (36.4-46.3); Red Blood Count 3.33 M/uL (4.20-5.40); White Blood Count 15.04 K/ul (4.8-10.8)
[2024-01-08 07:31] VITALS: RESP 18
[2024-01-08 07:40] LABS: BUN Creatinine Ratio 35.6 (10-20); Calcium 10.1 mg/dl (8.6-10.3); Creatinine Clr Calc Pharmacy 68.1 ml/min; Est GFR (African American) 100.2 ml/min; Est GFR (Non-African American) 86.4 ml/min; Magnesium 2.2 mg/dl (1.7-2.4); Potassium 4.2 mmol/L (3.5-5.1)
[2024-01-08] MEDS: BUMETANIDE 1 MG TAB PO SCH (08:06)
[2024-01-08] MEDS: predniSONE 20 MG TAB PO SCH (08:08)
[2024-01-08] MEDS ORDERED: predniSONE 50 MG TAB PO SCH (09:00)
--- NOTE | 2024-01-08 09:31 | Cardiology Progress Note ---
Date of Service January 08, 2024 Assessment & Plan (1) Acute respiratory failure with hypoxia: Plan: COPD exacerbation 2. [place] 3. Mild nonobstructive coronary artery disease 4. Paroxysmal AF with RVR 5. HFpEF 6. Mild to moderate AI, mild to moderate MR 7. Prior renal infarct 8. Dyslipidemia 9. Prolonged QT Breathing back at recent baseline. No further chest pain Electrically stable on telemetry On exam today no significant residual congestion No apparent access site complications. Overall suspect presenting ECG changes/troponin secondary to hypoxic respiratory failure in the setting of acute HFpEF and AF with RVR. No obstructive CAD on cardiac cath. May also have some contribution from microvascular disease/coronary vasospasm. We talked about importance of maintenance diuretic/salt restriction and ASCVD risk factor modification going forward. From a cardiac standpoint okay with discharge today with close follow-up with Alex Soares in [place] office. On discharge Continue maintenance diuretic, agree with Bumex 1 mg daily Continue Eliquis 5 mg twice daily. Can discontinue aspirin Continue Toprol-XL. If recurrent symptomatic AF could consider rhythm control although complicated by CAD/prolonged QT Continue atorvastatin 40 Home with trial of sublingual nitroglycerin for question of microvascular angina/vasospasm Repeat ECG as an outpatient to follow-up QT. May need different SSRI Admission and Anticipated Discharge Date Admission Date: January 05, 2024 Subjective Up walking in the halls this morning. States breathing near recent baseline. Denies any chest pain. Denies any palpitations. Primary concern is persistent constipation despite multiple laxatives. Telemetry reviewedsinus bradycardia with close to 50s. No recurrent AF Review of Systems Review of Systems: All systems reviewed & are unremarkable except as noted in HPI & below Physical Exam Physical Exam: General: Comfortable HEENT: Sclerae anicteric Lungs: Clear, prolonged expiratory, no crackles Cardiac: Regular rate and rhythm, 2 out of 6 holosystolic at apex, no JVP Vascular: 2+ radial pulse. Mild ecchymosis. No hematoma. Intact distal sensation/capillary refill Abdomen: Soft, mild tenderness Extremities: Well perfused, no peripheral edema Neuro: Nonfocal Psych: Alert orient x3, normal affect and mood Results & Data Vital Signs (Past 12 Hours) Vital Signs Temp Pulse Pulse Pulse Pulse Resp Resp 01/08/24 07:35 66 55 L 19 01/08/24 07:30 97.9 F 52 L 18 01/08/24 04:01 97.5 F L 52 L 16 01/07/24 23:07 51 L 01/07/24 23:00 01/07/24 22:52 97.9 F 52 L 16 Resp BP Pulse Ox Pulse Ox Pulse Ox Pulse Ox O2 Del Method 01/08/24 07:35 18 98 95 01/08/24 07:30 157/78 H 99 Room Air 01/08/24 04:01 141/59 H 94 Room Air 01/07/24 23:07 01/07/24 23:00 97 01/07/24 22:52 132/82 97 Room Air O2 Del Method 01/08/24 07:35 01/08/24 07:30 01/08/24 04:01 01/07/24 23:07 01/07/24 23:00 Room Air 01/07/24 22:52 PG Care Time/CCT Total # of Minutes Spent Total Time Spent with Patient: Total time spent is greater than 50% in coordination of care (as documented) at patient's floor/unit and/or counseling patient: Coding Level of Care Code 01393 SUB INP/OBS CARE 3/50MIN Diagnoses Acute respiratory failure with hypoxia J96.01
[2024-01-08] MEDS: bisacodyL 10 MG SUPP PR STA (10:26)
[2024-01-08] MEDS: SENNA 8.6 MG TAB PO SCH (10:26)
[2024-01-08] MEDS: POLYETHYLENE (MIRALAX) 17 GM PACK PO SCH (10:26)
--- NOTE | 2024-01-08 11:07 | Electrocardiogram Report ---
Test Reason : Blood Pressure : */* mmHG Vent. Rate : 53 BPM Atrial Rate : 53 BPM P-R Int : 194 ms QRS Dur : 82 ms QT Int : 470 ms P-R-T Axes : 71 38 72 degrees QTcB Int : 441 ms Sinus bradycardia T wave abnormality, consider anterior ischemia Abnormal ECG When compared with ECG of 06-Jan-2024 08:20, Criteria for Lateral infarct are no longer Present ST no longer depressed in Lateral leads Nonspecific T wave abnormality no longer evident in Inferior leads T wave inversion less evident in Anterolateral leads QT has shortened Confirmed by Damien Grider ([id number] on 01/08/2024 11:07:00 AM Referred By: REFERRED SELF Confirmed By: Damien Grider
[2024-01-08 12:06] VITALS: PULSE 61; TEMP 97.7; O2SAT 96
[2024-01-08 13:28] VITALS: BP 139/63
--- NOTE | 2024-01-08 13:56 | Discharge Summary ---
Discharge Summary Date of Service January 08, 2024 Principal Dx & Hospital Course #1 = Principal Diagnosis (1) Acute respiratory failure with hypoxia: (2) CAD (coronary artery disease): (3) Non-ST elevated myocardial infarction (non-STEMI): (4) Paroxysmal atrial fibrillation: (5) COPD exacerbation: (6) Infarction of kidney: Plan 63-year-old female with past medical history of renal infarct, coronary artery disease, glaucoma, COPD, history of tobacco use disorder, who presents to the emergency room with complaints of acute onset of shortness of breath with palpitations and had similar episode few weeks ago which resolved on its own. #Acute hypoxic respiratory failure Likely combination of atrial fibrillation, COPD exacerbation and CHF Patient no longer hypoxic and ambulating without any shortness of breath She was evaluated for home oxygen: Patient is saturating well on room air while resting and on ambulation and does not require home oxygen # Paroxysmal atrial fibrillation # Type II TX in the setting of demand ischemia from A-fib/CHF/COPD # Nonobstructive coronary artery disease # Acute diastolic congestive heart failure with preserved ejection fraction of 55% #History of prolonged QT Patient was initially in atrial fibrillation and then she spontaneously converted to sinus rhythm Troponins elevated and peaked at 261 TSH is 0.401 Echo showed EF of 55 to 60% with mild posterior wall and mild lateral wall hypokinesis with grade 1 diastolic dysfunction. Cardiology saw the patient and she underwent cardiac cath on 01/07/2024 Cardiac cath report from cardiology are as follows: Summary: 1. Mild nonobstructive coronary artery disease -30-40% ostial LAD (unchanged from (05/2015) 2. Elevated intracardiac filling pressure (LVEDP 36). Patient was seen today by cardiology in follow-up. Recommendations from cardiology are as follows for discharge: Continue maintenance diuretic, agree with Bumex 1 mg daily Continue Eliquis 5 mg twice daily. Can discontinue aspirin Continue Toprol-XL. If recurrent symptomatic AF could consider rhythm control although complicated by CAD/prolonged QT Continue atorvastatin 40 Home with trial of sublingual nitroglycerin for question of microvascular angina/vasospasm Repeat ECG as an outpatient to follow-up QT. May need different SSRI Patient is already on apixaban 5 mg p.o. twice daily for renal infarct Continue statin plus Toprol-XL 25 mg daily Total cholesterol is 208 LDL is 110 HDL is 84 Continue Bumex 1 mg p.o. daily starting tomorrow Repeat chest x-ray shows resolution of pulmonary vascular congestion Patient will follow-up with cardiology as outpatient #Acute exacerbation of COPD #History of tobacco use disorder Smoking cessation counseling provided Patient initially treated with IV Solu-Medrol and has been transition to oral prednisone with taper Patient to use Pepcid while on prednisone taper Continue home inhalers and nebulizers 2 Step test for home O2 assessment: Patient does not need oxygen for home use #History of renal infarct IN 08/2023 Patient is on apixaban 5 mg p.o. twice daily She has outpatient follow-up with hotel lobby concierge Dr. Stinson #Anxiety and depression Continue citalopram 40 mg daily Continue Xanax Outpatient follow-up with her own psychiatrist to review QTc and medications # Hyperglycemia A1c is 5.1 Elevated blood sugars likely secondary to steroids Outpatient follow-up with PCP Patient seen and examined today. She is ambulating without any issues. She was seen by cardiology and cleared for discharge. I gone over cardiology recommendations, discharge care plan, follow-up and medications with the patient in great detail and answered all her questions This discharge took greater than 30 minutes to coordinate Admission HPI Per Admitting Provider The patient is a 63-year-old female with a past medical history including left renal mass, renal infarct, CAD, glaucoma, COPD, chronic anemia, history of NSTEMI, GERD, bipolar disorder, anxiety with depression and asthma. She presents to the emergency department with complaint of acute onset of shortness of breath that began around 1 PM this afternoon. She was in her usual state of health until that time. She denies any recent travels or sick exposures. Since the onset of the symptoms, she has now developed some generalized fatigue. Discharge Exam General: No acute distress Psych: Awake and alert HEENT: Anicteric sclera, moist oral mucosa CVS: Regular rate and rhythm Lungs: Bilateral air entry, no wheezing audible, no use of accessory muscles noted Abdomen: Soft, nontender, no rebound, no guarding Ext: No lower extremity edema, no calf tenderness Neuro: No focal motor deficits noted Discharge Plan Discharge Items Patient Disposition: Home - Self-Care Reason For Visit: ACUTE RESP FAILURE WITH HYPOXIA, COPD EX CHF EX Discharge Diagnosis: # Paroxysmal atrial fibrillation # Type II TX in setting of demand ischemia from CHF/COPD # Nonobstructive coronary artery disease # Acute diastolic congestive heart failure with preserved ejection fraction of 55% #Acute exacerbation of COPD #History of tobacco use disorder #History of renal infarct IN 08/2023 #Anxiety and depression #History of prolonged QT Condition on Discharge: Good Activity: Resume your previous activity Non-emergency contact: Primary Care Provider Call non-emergency contact if: you have any medication questions, your symptoms worsen and you have a fever Follow-up/Referrals: Mohit Salgado CRNP [Primary Care Provider] - Alex Soares PA-C [Physician Cleaner And Preparer] - Diet: Heart Healthy and Low Sodium (2gm) Diet Comment: Avoid soda and high sugar foods Addtl Attending Provider Instructions: DISCHARGE INSTRUCTION TO PATIENT/FAMILY: Follow-up with your primary care provider within 1 week regarding: Posthospital discharge, medication review, medication refills and follow-up on all your medical problems, COPD, CHF, hyperglycemia Please take all your discharge medications, discharge information and discharge instructions to all your doctors appointments. Avoid all NSAIDs including ibuprofen, Motrin, Advil, Aleve, naproxen, meloxicam, Toradol, diclofenac You have been diagnosed with congestive heart failure. Your diuretic has been changed from furosemide to Bumex. Weigh yourself every morning at the same time on the same scale. If you gain more than 2 pounds in 24 hours or are experiencing shortness of breath or increasing leg edema, take an extra dose of Bumex 1 mg in addition to your daily Bumex dose and call your PCP or scale assembly set up worker for further instructions. Follow-up with Alex Soares cardiology PA in [place] in 1 week's time regar ding heart failure You have a history of prolonged QT. Your current QTc is 441. Please follow-up with your PCP and psychiatrist to review your outpatient psychiatry medications (citalopram) which can cause prolonged QT. Please see your PCP in 1 week's time to repeat your EKG as outpatient Labs through PCP in 1 week: CBC, CMP, MG, VITAMIN B12, VITAMIN D, EKG Pending Studies at Discharge: No Stand-Alone Forms: My [employer], Smoking Cessation Medications and DC Order Prescriptions: New magnesium oxide 400 mg (241.3 mg magnesium) Tablet 400 mg PO PM Qty: 7 0RF Rx Instructions: Available [id number] bumetanide 1 mg Tablet 1 mg PO QAM Qty: 30 0RF prednisone 10 mg tablet 10 mg PO DIRECTED Qty: 9 0RF Rx Instructions: Prednisone taper instructions: Starting 01/09/2024: Take 3 tabs (30 MG) daily for 2 days, then 2 tabs (20 MG) daily for 1 days, then 1 tab daily (10 MG) for 1 days, then stop. TAKE WITH FOOD famotidine 20 mg Tablet 20 mg PO BID17 Qty: 10 0RF Rx Instructions: TAKE WHILE USING PREDNISONE FOR 5 DAYS nitroglycerin 0.4 mg tablet, sublingual 0.4 mg sublingual Q5M PRN (Reason: chest pain) Qty: 30 0RF Rx Instructions: Take 1 tablet sublingual as needed every 5 minutes x 3 doses maximum for chest pain. If chest pain not relieved by sublingual nitro, call 911 or seek immediate medical help Continued Eliquis 5 mg tablet 10 mg PO BID 30 Days Qty: 120 3RF atorvastatin 40 mg tablet 40 mg PO QAM 90 Days Qty: 90 1RF citalopram 40 mg tablet 40 mg PO QAM Qty: 90 1RF metoprolol succinate 25 mg tablet extended release 24 hr 25 mg PO QAM Qty: 90 3RF alprazolam 0.5 mg tablet 0.5 mg PO BID Qty: 45 0RF latanoprost 0.005 % drops 1 drp ophthalmic (eye) .COMPLEX Qty: 7.5 0RF Rx Instructions: 1 drp ophthalmic (eye) Instill 1 drop in each eye in the PM; cholecalciferol (vitamin D3) 25 mcg (1,000 unit) tablet 100 mcg PO QAM Rx Instructions: 2000units Combivent Respimat 20-100 mcg/actuation mist 2 puff INHALATION BID cyanocobalamin (vitamin B-12) [Vitamin B-12] 1,000 mcg Tablet 1,000 mcg PO QAM albuterol sulfate 90 mcg/actuation HFA aerosol inhaler 1 inh inhalation QID Discontinued furosemide 20 mg tablet 20 mg PO .COMPLEX Qty: 90 1RF Rx Instructions: 20 mg PO Take 1 tablet every other day alternating with 2 tablets every other day; aspirin [Aspirin Childrens] 81 mg Tablet,Chewable 81 mg PO QAM Discharge Orders: Discharge Order- CHF (Routine); Ordered 01/08/24 Ordered By: Rafael Wolfe Admission Data Admit Date/Time: 01/05/24 22:25 Attending Provider: Rafael Wolfe Admit Provider: Jose Baptiste Primary Care Provider: Mohit Salgado Other Providers: Jose Baptiste; Alla Singh. Other Interventions: Discharge Summary Assessment (RN) Last Done: 01/08/24 13:27 Hospital Stay Data Consultations 01/05/24 22:15 ED Decision to Admit Stat 01/06/24 11:07 Consult Cardiology Routine Procedures Performed Operation Date: 01/07/24 09:30 Actual Procedures p Cineradiography w/Routine Exam - Damien Levi MD p Cath, Left with Cors and Vent - Damien Levi MD Diagnostic Imagining Performed 01/07/24 06:40 CL Cath Imgs for PACS use only Routine Chest X-Ray 01/05/24 21:07 SINGLE VIEW CHEST CLINICAL HISTORY: Dyspnea FINDINGS: An AP, portable, upright chest radiograph is compared to chest x-ray and chest CT dated 12/17/2018. The heart is enlarged noting atherosclerotic calcification of the thoracic aorta. Diffuse interstitial thickening likely represents fluid overload/congestive change. Mild atelectasis is noted at the lung bases. No airspace consolidation or large pleural effusion is identified. No pneumothorax is seen. The skeletal structures are osteopenic. The bony thorax is grossly intact. IMPRESSION: Cardiomegaly with evidence of fluid overload/congestive change. Clinical correlation will be required and radiographic follow-up to resolution is recommended. ACT 112: Negative or not required by law. Electronically signed by: Ankur Mercado M.D. 01/05/2024 10:13 PM Chest X-Ray 01/07/24 16:05 XR chest 2V PA/lateral CLINICAL HISTORY: Congestive heart failure. COMPARISON STUDY: Chest CT December 17, 2018. Chest radiograph January 05, 2024. FINDINGS: There is no pneumothorax or pleural effusion. Pulmonary edema has resolved. Cardiomegaly is again noted. Mediastinal contours are stable. IMPRESSION: Cardiomegaly. Interval resolution of pulmonary edema. ACT 112: Negative or not required by law. Electronically signed by: Moy Márquez M.D. 01/07/2024 4:34 PM 01/05/24 01/05/24 01/05/24 21:05 21:14 22:35 WBC 13.31 H RBC 3.47 L Hgb 12.2 Hct 36.7 L MCV 105.8 H MCH 35.2 H MCHC 33.2 RDW Std Deviation 56.7 H RDW Coeff of Adrián 14.5 Plt Count 275 MPV 10.7 Immature Gran % (Auto) 0.6 Neut % (Auto) 78.1 Lymph % (Auto) 14.8 [place] % (Auto) 4.8 Eos % (Auto) 1.0 Baso % (Auto) 0.7 Neut # (Auto) 10.40 H Lymph # (Auto) 1.97 [place] # (Auto) 0.64 H Eos # (Auto) 0.13 Baso # (Auto) 0.09 Immature Gran # (Auto) 0.08 Absolute Nucleated RBC 0.02 Nucleated RBC % (auto) 0.2 RBC Morphology Sodium 137 Potassium 3.9 Chloride 101 Carbon Dioxide 29 Anion Gap 7 BUN 7 Creatinine 0.74 Est Cr Clr Drug Dosing 69.7 Est GFR ( Amer) 98.5 Est GFR (Non-Af Amer) 85.0 BUN/Creatinine Ratio 9.5 L Glucose 236 H POC Glucose 132 H Estimat Average Glucose Hemoglobin A1c Calcium 9.0 Phosphorus Magnesium 1.8 Total Bilirubin 0.5 AST 34 ALT 37 Alkaline Phosphatase 73 Troponin I High Sens 100.7 H* B-Natriuretic Peptide 746 H Total Protein 7.3 Albumin 4.4 Globulin 2.9 Albumin/Globulin Ratio 1.5 Triglycerides Cholesterol LDL Cholesterol, Calc VLDL Cholesterol, Calc HDL Cholesterol Cholesterol/HDL Ratio Vitamin B12 TSH Adenovirus (PCR) Not Detected B. pertussis DNA (PCR) Not Detected B.parapertussis DNA PCR Not Detected C. pneumoniae DNA (PCR) Not Detected Coronavirus OC43 (PCR) Not Detected Coronavirus HKU1 (PCR) Not Detected Coronavirus 229E (PCR) Not Detected SARS-CoV-2 (PCR) Not Detected Coronavirus NL63 (PCR) Not Detected Human Metapneumovir PCR Not Detected Influenza Type A (PCR) Not Detected Influenza Type B (PCR) Not Detected M. pneumoniae (PCR) Not Detected Parainfluenza 1 (PCR) Not Detected Parainfluenza 2 (PCR) Not Detected Parainfluenza 3 (PCR) Not Detected Parainfluenza 4 (PCR) Not Detected RSV (PCR) Not Detected Entero/Rhino (PCR) Not Detected 01/06/24 01/06/24 01/06/24 00:44 05:12 07:37 WBC 6.74 RBC 3.19 L Hgb 11.1 L Hct 32.5 L MCV 101.9 H MCH 34.8 H MCHC 34.2 RDW Std Deviation 53.0 H RDW Coeff of Adrián 14.1 Plt Count 209 MPV 10.8 Immature Gran % (Auto) 0.3 Neut % (Auto) 94.1 Lymph % (Auto) 3.9 [place] % (Auto) 1.6 Eos % (Auto) 0.0 Baso % (Auto) 0.1 Neut # (Auto) 6.34 Lymph # (Auto) 0.26 L [place] # (Auto) 0.11 Eos # (Auto) 0.00 Baso # (Auto) 0.01 Immature Gran # (Auto) 0.02 Absolute Nucleated RBC Nucleated RBC % (auto) RBC Morphology Sodium 138 Potassium 3.6 Chloride 99 Carbon Dioxide 31 Anion Gap 8 BUN 8 Creatinine 0.54 L Est Cr Clr Drug Dosing 92.4 Est GFR ( Amer) 114.8 Est GFR (Non-Af Amer) 99.0 BUN/Creatinine Ratio 14.8 Glucose 183 H POC Glucose 210 H Estimat Average Glucose 100 Hemoglobin A1c 5.1 Calcium 9.3 Phosphorus 2.4 L Magnesium 1.6 L Total Bilirubin AST ALT Alkaline Phosphatase Troponin I High Sens 261.6 H* D 197.1 H* D B-Natriuretic Peptide Total Protein Albumin 4.3 Globulin Albumin/Globulin Ratio Triglycerides Cholesterol LDL Cholesterol, Calc VLDL Cholesterol, Calc HDL Cholesterol Cholesterol/HDL Ratio Vitamin B12 TSH 0.401 Adenovirus (PCR) B. pertussis DNA (PCR) B.parapertussis DNA PCR C. pneumoniae DNA (PCR) Coronavirus OC43 (PCR) Coronavirus HKU1 (PCR) Coronavirus 229E (PCR) SARS-CoV-2 (PCR) Coronavirus NL63 (PCR) Human Metapneumovir PCR Influenza Type A (PCR) Influenza Type B (PCR) M. pneumoniae (PCR) Parainfluenza 1 (PCR) Parainfluenza 2 (PCR) Parainfluenza 3 (PCR) Parainfluenza 4 (PCR) RSV (PCR) Entero/Rhino (PCR) 01/06/24 01/06/24 01/06/24 10:30 10:52 15:11 WBC RBC Hgb Hct MCV MCH MCHC RDW Std Deviation RDW Coeff of Adrián Plt Count MPV Immature Gran % (Auto) Neut % (Auto) Lymph % (Auto) [place] % (Auto) Eos % (Auto) Baso % (Auto) Neut # (Auto) Lymph # (Auto) [place] # (Auto) Eos # (Auto) Baso # (Auto) Immature Gran # (Auto) Absolute Nucleated RBC Nucleated RBC % (auto) RBC Morphology Sodium Potassium Chloride Carbon Dioxide Anion Gap BUN Creatinine Est Cr Clr Drug Dosing Est GFR ( Amer) Est GFR (Non-Af Amer) BUN/Creatinine Ratio Glucose POC Glucose 183 H 131 H Estimat Average Glucose Hemoglobin A1c Calcium Phosphorus Magnesium Total Bilirubin AST ALT Alkaline Phosphatase Troponin I High Sens 128.6 H* D B-Natriuretic Peptide Total Protein Albumin Globulin Albumin/Globulin Ratio Triglycerides Cholesterol LDL Cholesterol, Calc VLDL Cholesterol, Calc HDL Cholesterol Cholesterol/HDL Ratio Vitamin B12 TSH Adenovirus (PCR) B. pertussis DNA (PCR) B.parapertussis DNA PCR C. pneumoniae DNA (PCR) Coronavirus OC43 (PCR) Coronavirus HKU1 (PCR) Coronavirus 229E (PCR) SARS-CoV-2 (PCR) Coronavirus NL63 (PCR) Human Metapneumovir PCR Influenza Type A (PCR) Influenza Type B (PCR) M. pneumoniae (PCR) Parainfluenza 1 (PCR) Parainfluenza 2 (PCR) Parainfluenza 3 (PCR) Parainfluenza 4 (PCR) RSV (PCR) Entero/Rhino (PCR) 01/06/24 01/06/24 01/06/24 16:24 19:53 23:41 WBC RBC Hgb Hct MCV MCH MCHC RDW Std Deviation RDW Coeff of Adrián Plt Count MPV Immature Gran % (Auto) Neut % (Auto) Lymph % (Auto) [place] % (Auto) Eos % (Auto) Baso % (Auto) Neut # (Auto) Lymph # (Auto) [place] # (Auto) Eos # (Auto) Baso # (Auto) Immature Gran # (Auto) Absolute Nucleated RBC Nucleated RBC % (auto) RBC Morphology Sodium Potassium Chloride Carbon Dioxide Anion Gap BUN Creatinine Est Cr Clr Drug Dosing Est GFR ( Amer) Est GFR (Non-Af Amer) BUN/Creatinine Ratio Glucose POC Glucose 126 H 142 H 181 H Estimat Average Glucose Hemoglobin A1c Calcium Phosphorus Magnesium Total Bilirubin AST ALT Alkaline Phosphatase Troponin I High Sens B-Natriuretic Peptide Total Protein Albumin Globulin Albumin/Globulin Ratio Triglycerides Cholesterol LDL Cholesterol, Calc VLDL Cholesterol, Calc HDL Cholesterol Cholesterol/HDL Ratio Vitamin B12 TSH Adenovirus (PCR) B. pertussis DNA (PCR) B.parapertussis DNA PCR C. pneumoniae DNA (PCR) Coronavirus OC43 (PCR) Coronavirus HKU1 (PCR) Coronavirus 229E (PCR) SARS-CoV-2 (PCR) Coronavirus NL63 (PCR) Human Metapneumovir PCR Influenza Type A (PCR) Influenza Type B (PCR) M. pneumoniae (PCR) Parainfluenza 1 (PCR) Parainfluenza 2 (PCR) Parainfluenza 3 (PCR) Parainfluenza 4 (PCR) RSV (PCR) Entero/Rhino (PCR) 01/07/24 01/07/24 01/07/24 03:39 07:24 10:50 WBC 15.75 H RBC 3.10 L Hgb 10.5 L Hct 32.4 L MCV 104.5 H MCH 33.9 MCHC 32.4 RDW Std Deviation 55.3 H RDW Coeff of Adrián 14.6 H Plt Count 194 MPV 11.0 Immature Gran % (Auto) 0.5 Neut % (Auto) 93.1 Lymph % (Auto) 3.0 [place] % (Auto) 3.3 Eos % (Auto) 0.0 Baso % (Auto) 0.1 Neut # (Auto) 14.66 H Lymph # (Auto) 0.48 L [place] # (Auto) 0.52 Eos # (Auto) 0.00 Baso # (Auto) 0.01 Immature Gran # (Auto) 0.08 Absolute Nucleated RBC Nucleated RBC % (auto) RBC Morphology Unremarkable Sodium 135 L Potassium 4.7 D Chloride 99 Carbon Dioxide 29 Anion Gap 7 BUN 17 Creatinine 0.59 L Est Cr Clr Drug Dosing 84.2 Est GFR ( Amer) 111.5 Est GFR (Non-Af Amer) 96.2 BUN/Creatinine Ratio 28.8 H Glucose 145 H POC Glucose 161 H 195 H Estimat Average Glucose Hemoglobin A1c Calcium 9.7 Phosphorus Magnesium 2.3 Total Bilirubin AST ALT Alkaline Phosphatase Troponin I High Sens B-Natriuretic Peptide Total Protein Albumin Globulin Albumin/Globulin Ratio Triglycerides 68 Cholesterol 208 H LDL Cholesterol, Calc 110 VLDL Cholesterol, Calc 14 HDL Cholesterol 84 Cholesterol/HDL Ratio 2.5 Vitamin B12 621 TSH Adenovirus (PCR) B. pertussis DNA (PCR) B.parapertussis DNA PCR C. pneumoniae DNA (PCR) Coronavirus OC43 (PCR) Coronavirus HKU1 (PCR) Coronavirus 229E (PCR) SARS-CoV-2 (PCR) Coronavirus NL63 (PCR) Human Metapneumovir PCR Influenza Type A (PCR) Influenza Type B (PCR) M. pneumoniae (PCR) Parainfluenza 1 (PCR) Parainfluenza 2 (PCR) Parainfluenza 3 (PCR) Parainfluenza 4 (PCR) RSV (PCR) Entero/Rhino (PCR) 01/07/24 01/07/24 01/08/24 16:37 19:25 06:31 WBC 15.04 H RBC 3.33 L Hgb 11.6 L Hct 34.0 L MCV 102.1 H MCH 34.8 H MCHC 34.1 RDW Std Deviation 54.4 H RDW Coeff of Adrián 14.5 Plt Count 230 MPV 11.0 Immature Gran % (Auto) 0.6 Neut % (Auto) 77.4 Lymph % (Auto) 14.3 [place] % (Auto) 7.5 Eos % (Auto) 0.1 Baso % (Auto) 0.1 Neut # (Auto) 11.64 H Lymph # (Auto) 2.15 [place] # (Auto) 1.13 H Eos # (Auto) 0.01 Baso # (Auto) 0.02 Immature Gran # (Auto) 0.09 Absolute Nucleated RBC Nucleated RBC % (auto) RBC Morphology Sodium 136 Potassium 4.2 Chloride 97 L Carbon Dioxide 33 H Anion Gap 6 BUN 26 H Creatinine 0.73 Est Cr Clr Drug Dosing 68.1 Est GFR ( Amer) 100.2 Est GFR (Non-Af Amer) 86.4 BUN/Creatinine Ratio 35.6 H Glucose 95 POC Glucose 140 H 128 H Estimat Average Glucose Hemoglobin A1c Calcium 10.1 Phosphorus Magnesium 2.2 Total Bilirubin AST ALT Alkaline Phosphatase Troponin I High Sens B-Natriuretic Peptide Total Protein Albumin Globulin Albumin/Globulin Ratio Triglycerides Cholesterol LDL Cholesterol, Calc VLDL Cholesterol, Calc HDL Cholesterol Cholesterol/HDL Ratio Vitamin B12 TSH Adenovirus (PCR) B. pertussis DNA (PCR) B.parapertussis DNA PCR C. pneumoniae DNA (PCR) Coronavirus OC43 (PCR) Coronavirus HKU1 (PCR) Coronavirus 229E (PCR) SARS-CoV-2 (PCR) Coronavirus NL63 (PCR) Human Metapneumovir PCR Influenza Type A (PCR) Influenza Type B (PCR) M. pneumoniae (PCR) Parainfluenza 1 (PCR) Parainfluenza 2 (PCR) Parainfluenza 3 (PCR) Parainfluenza 4 (PCR) RSV (PCR) Entero/Rhino (PCR) 01/08/24 11:47 WBC RBC Hgb Hct MCV MCH MCHC RDW Std Deviation RDW Coeff of Adrián Plt Count MPV Immature Gran % (Auto) Neut % (Auto) Lymph % (Auto) [place] % (Auto) Eos % (Auto) Baso % (Auto) Neut # (Auto) Lymph # (Auto) [place] # (Auto) Eos # (Auto) Baso # (Auto) Immature Gran # (Auto) Absolute Nucleated RBC Nucleated RBC % (auto) RBC Morphology Sodium Potassium Chloride Carbon Dioxide Anion Gap BUN Creatinine Est Cr Clr Drug Dosing Est GFR ( Amer) Est GFR (Non-Af Amer) BUN/Creatinine Ratio Glucose POC Glucose 128 H Estimat Average Glucose Hemoglobin A1c Calcium Phosphorus Magnesium Total Bilirubin AST ALT Alkaline Phosphatase Troponin I High Sens B-Natriuretic Peptide Total Protein Albumin Globulin Albumin/Globulin Ratio Triglycerides Cholesterol LDL Cholesterol, Calc VLDL Cholesterol, Calc HDL Cholesterol Cholesterol/HDL Ratio Vitamin B12 TSH Adenovirus (PCR) B. pertussis DNA (PCR) B.parapertussis DNA PCR C. pneumoniae DNA (PCR) Coronavirus OC43 (PCR) Coronavirus HKU1 (PCR) Coronavirus 229E (PCR) SARS-CoV-2 (PCR) Coronavirus NL63 (PCR) Human Metapneumovir PCR Influenza Type A (PCR) Influenza Type B (PCR) M. pneumoniae (PCR) Parainfluenza 1 (PCR) Parainfluenza 2 (PCR) Parainfluenza 3 (PCR) Parainfluenza 4 (PCR) RSV (PCR) Entero/Rhino (PCR) Pending Results Patient Have Any Pending Studies at Discharge: No Discharge Instructions Given to Patient (Per Discharging Provider) DISCHARGE INSTRUCTION TO PATIENT/FAMILY: Follow-up with your primary care provider within 1 week regarding: Posthospital discharge, medication review, medication refills and follow-up on all your medical problems, COPD, CHF, hyperglycemia Please take all your discharge medications, discharge information and discharge instructions to all your doctors appointments. Avoid all NSAIDs including ibuprofen, Motrin, Advil, Aleve, naproxen, meloxicam, Toradol, diclofenac You have been diagnosed with congestive heart failure. Your diuretic has been changed from furosemide to Bumex. Weigh yourself every morning at the same time on the same scale. If you gain more than 2 pounds in 24 hours or are experiencing shortness of breath or increasing leg edema, take an extra dose of Bumex 1 mg in addition to your daily Bumex dose and call your PCP or ca rdiologist for further instructions. Follow-up with Alex Soares cardiology PA in [place] in 1 week's time regarding heart failure You have a history of prolonged QT. Your current QTc is 441. Please follow-up with your PCP and psychiatrist to review your outpatient psychiatry medications (citalopram) which can cause prolonged QT. Please see your PCP in 1 week's time to repeat your EKG as outpatient Labs through PCP in 1 week: CBC, CMP, MG, VITAMIN B12, VITAMIN D, EKG Total Time Total Time Spent Total Time Spent (In Minutes): 40 minutes Total Time Includes: Examination of the Patient, Discharge Planning and Medication Reconciliation Coding Level of Care Code 87841 INP/OBS DISCH >30 MIN Diagnoses Acute respiratory failure with hypoxia J96.01 CAD (coronary artery disease) I25.10 Non-ST elevated myocardial infarction (non-STEMI) I21.4 Paroxysmal atrial fibrillation I48.0 COPD exacerbation J44.1 Infarction of kidney N28.0
== END 2024-01-08 15:00 | disposition home or self-care (01) | DRG 280 ==
LOC: ED 20:58 → SUATTDRO 22:25 → 2S 22:25